=== PATIENT | male | born 1970 | race African-American/Black ===

== ENCOUNTER 2017-03-04 14:24 | Inpatient (IN) | payer MEDICAID, OTHER ==
[~2017-03-04] VITALS: Ht 172.7 cm; Wt 169.0 kg
[~2017-03-04 14:24] MED LIST: 3-IN3MIS; ACCUTES; BACL10TA PO; BLOO1KIT65; BUME1TAB PO; CARV6.25 PO; DOXY100T PO; ECASA PO; GABA300C3 PO; GABA600T PO; HOSPITAL BED SEMI; LANC1MIS TOPICAL; LEXA10TA PO; LISI20 PO; METF500 PO; PERI8.6T PO; PRAV40 PO; PROT40TA PO; THERM PO; WHEELCHAIR RENTAL RA; [UNRECOGNIZED DRUG - CODE] TOPICAL; [UNRECOGNIZED DRUG - SUPPLY]
[2017-03-04 14:42] VITALS: BP 175/110; PULSE 110; RESP 22; TEMP 99; O2SAT 99
--- NOTE | 2017-03-04 15:05 | RADRPT ---
EXAM DATE/TIME: 03/04/2017 14:54 [place] COMPARISON: No previous studies available for comparison. INDICATIONS : Shortness of breath. MEDICAL HISTORY : None. SURGICAL HISTORY : Pacemaker. ENCOUNTER: Initial ACUITY: 3 days PAIN SCORE: 0/10 LOCATION: Bilateral chest FINDINGS: There bilateral partially consolidative infiltrate in the mid and lower lungs and small subdural deli neation of portions the left hemidiaphragm. Cardiac pacer lead in place. The heart is mildly enlarg ed. CONCLUSION: Patchy partially consolidative infiltrates in both mid and lower lungs, left greater than right. Anil Sneed MD on March 04, 2017 at 15:02 Board Certified Radiologist. This report was verified electronically.
--- NOTE | 2017-03-04 15:07 | PD ---
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 Patient reports that he is currently being treated for a lung infection with levaquin 500mg. Reports that he is sob and has had a nonproductive cough for the past week. Patient reports that having his bed right next to the air-conditioner helps with his symptoms, reports that he moved his bed right next to the air conditioner but administration made him move his bed back to where it was normally. Patient reports that he is angry with administration as he requires his bed to be right near the AC to help with his breathing. Patient denies fever/chills. Denies chest pain. Reports SOB with his cough. Denies abdominal pain, nausea or vomiting. NO other c/o. PFSH Past Medical History Arthritis: No Asthma: No Autoimmune Disease: No Blood Disorders: No Anxiety: No Depression: No Heart Rhythm Problems: Yes Cancer: No Cardiovascular Problems: No High Cholesterol: Yes Chest Pain: No Congestive Heart Failure: Yes COPD: No Cerebrovascular Accident: Yes Diabetes: Yes Diminished Hearing: No Endocrine: Yes GERD: No Glaucoma: No Genitourinary: Yes Headaches: No Hepatitis: No Hiatal Hernia: No Hypertension: Yes Immune Disorder: No Kidney Stones: No Musculoskeletal: No Neurologic: Yes Psychiatric: No Reproductive: No Respiratory: No Migraines: No Myocardial Infarction: No Pneumonia: Yes Radiation Therapy: No Renal Failure: No Seizures: No Sickle Cell Disease: No Sleep Apnea: Yes Thyroid Disease: No Ulcer: No Tetanus Vaccination: < 5 Years Influenza Vaccination: Yes Past Surgical History Abdominal Surgery: Yes AICD: No Appendectomy: No Arteriovenous Shunt: No Cardiac Surgery: Yes Cholecystectomy: No Ear Surgery: No Endocrine Surgery: No Eye Surgery: No Genitourinary Surgery: No Gynecologic Surgery: No Insulin Pump: No Joint Replacement: No Oral Surgery: No Pacemaker: Yes Thoracic Surgery: Yes Social History Alcohol Use: No Tobacco Use: No Substance Use: No Allergies-Medications (Allergen,Severity, Reaction): Coded Allergies: No Known Allergies (Unverified , 03/04/17) Reported Meds & Prescriptions Reported Meds & Active Scripts Active Reported Duoneb (Ipratropium-Albuterol Neb) 0.5-2.5 Mg/3 Ml Neb 1 Nebule INH QID NEB PRN Tessalon Perles (Benzonatate) 100 Mg Cap 100 Mg PO TID PRN Milk of Magnesia Liq (Magnesium Hydroxide) 400 Mg/5 Ml Susp 30 Ml PO Q4HR PRN Sm Anti-Diarrheal (Loperamide HCl) 1 Mg/5 Ml Liq 2 Mg PO DIRECTED PRN Take 4 mg after 1st loose stool, then take 2 mg after each subsequent stool. Max 16 mg/day. Anti-Diarrheal (Loperamide HCl) 2 Mg Tab 2 Mg PO DIRECTED PRN Take 4 mg after 1st loose stool, then take 2 mg after each subsequent stool. Max 16 mg/day. Fleet Enema Six Pack 7-19 gm/118Ml (Sodium Phosphates) 1 Allyson Allyson 118 Ml IA DAILY PRN Dulcolax Supp (Bisacodyl) 10 Mg Supp 10 Mg RECTAL DAILY PRN Mapap (Acetaminophen) 325 Mg Tab 650 Mg PO Q4HR PRN Hcsbtocg-Zylbaecbu-Iqncfcvrlyu Liq 200-200-20 Mg/5 Ml Susp 30 Ml PO Q4HR PRN Take between meals or as directed. Shake well. Do not exceed 120 mL/24 hrs. Medrol Dosepak (Methylprednisolone) 4 Mg Dspk 4 Mg PO DIRECTED Per Pharmacist direction Warfarin 1 Mg Tab 1 Mg PO SUTUWETHSA @ 1600 Warfarin 2.5 Mg Tab 2.5 Mg PO SUTUWETHSA @ 1600 Warfarin 2 Mg Tab 2 Mg PO MOFR@1600 Coumadin (Warfarin) 5 Mg Tab 5 Mg PO MOFR @ 1600 Ativan (Lorazepam) 0.5 Mg Tab 0.5 Mg PO BID Pravastatin 40 Mg Tab 40 Mg PO HS Metformin (Metformin HCl) 500 Mg Tab 500 Mg PO BIDPC With meals Lisinopril 5 Mg Tab 5 Mg PO DAILY Gabapentin 300 Mg Cap 300 Mg PO TID Fluoxetine (Fluoxetine HCl) 20 Mg Capsule 20 Mg PO DAILY Lexapro (Escitalopram Oxalate) 10 Mg Tab 10 Mg PO DAILY Celebrex (Celecoxib) 200 Mg Cap 200 Mg PO DAILY Carvedilol 12.5 Mg Tab 12.5 Mg PO BID Buspirone (Buspirone HCl) 10 Mg Tab 10 Mg PO DAILY Bumetanide 1 Mg Tab 1 Mg PO DAILY Levaquin (Levofloxacin) 500 Mg Tablet 500 Mg PO DAILY Review of Systems General / Constitutional: No: Fever Eyes: No: Visual changes HENT: No: Headaches Cardiovascular: No: Chest Pain or Discomfort Respiratory: Positive: Cough, Shortness of Breath Gastrointestinal: No: Abdominal Pain Genitourinary: No: Dysuria Musculoskeletal: No: Pain Skin: No Rash Neurologic: No: Weakness Psychiatric: No: Depression Endocrine: No: Polydipsia Hematologic/Lymphatic: No: Easy Bruising Physical Exam Narrative GENERAL: Mild distress SKIN: Focused skin assessment warm/dry. HEAD: Atraumatic. Normocephalic. EYES: Pupils equal and round. No scleral icterus. No injection or drainage. ENT: No nasal bleeding or discharge. Mucous membranes pink and moist. NECK: Trachea midline. No JVD. CARDIOVASCULAR: Regular rate and rhythm. No murmur appreciated. RESPIRATORY: No accessory muscle use. Clear to auscultation. Breath sounds equal bilaterally. GASTROINTESTINAL: Abdomen soft, non-tender, nondistended. Hepatic and splenic margins not palpable. MUSCULOSKELETAL: No obvious deformities. No clubbing. No cyanosis. No edema. NEUROLOGICAL: Awake and alert.Normal speech. PSYCHIATRIC: Appropriate mood and affect; insight and judgment normal. Data Data Last Documented VS Vital Signs Date Time Temp Pulse Resp B/P Pulse Ox O2 Delivery O2 Flow Rate FiO2 03/04/17 15:38 105 22 145/104 97 Nasal Cannula 2 03/04/17 14:42 99.0 Orders Electrocardiogram (03/04/17 14:43) Complete Blood Count With Diff (03/04/17 14:43) Comprehensive Metabolic Panel (03/04/17 14:43) Urinalysis - C+S If Indicated (03/04/17 14:43) Blood Culture (03/04/17 14:43) Chest, Single Ap (03/04/17 14:43) B-Type Natriuretic Peptide (03/04/17 14:43) Act Partial Throm Time (Ptt) (03/04/17 14:43) Prothrombin Time / Inr (Pt) (03/04/17 14:43) Piperacil-Tazo 4.5 Gm Premix (Zosyn 4.5 (03/04/17 16:15) Azithromycin Inj (Zithromax Inj) (03/04/17 16:15) Labs Laboratory Tests Test 03/04/17 14:45 White Blood Count 11.7 TH/MM3 Red Blood Count 4.43 MIL/MM3 Hemoglobin 12.8 GM/DL Hematocrit 38.9 % Mean Corpuscular Volume 87.8 FL Mean Corpuscular Hemoglobin 28.9 PG Mean Corpuscular Hemoglobin 32.9 % Concent Red Cell Distribution Width 15.7 % Platelet Count 382 TH/MM3 Mean Platelet Volume 8.4 FL Neutrophils (%) (Auto) 73.7 % Lymphocytes (%) (Auto) 14.8 % Monocytes (%) (Auto) 10.2 % Eosinophils (%) (Auto) 0.6 % Basophils (%) (Auto) 0.7 % Neutrophils # (Auto) 8.6 TH/MM3 Lymphocytes # (Auto) 1.7 TH/MM3 Monocytes # (Auto) 1.2 TH/MM3 Eosinophils # (Auto) 0.1 TH/MM3 Basophils # (Auto) 0.1 TH/MM3 CBC Comment DIFF FINAL Differential Comment Prothrombin Time 32.5 SEC Prothromb Time International 2.8 RATIO Ratio Activated Partial 36.4 SEC Thromboplast Time Sodium Level 147 MEQ/L Potassium Level 4.3 MEQ/L Chloride Level 111 MEQ/L Carbon Dioxide Level 24.8 MEQ/L Anion Gap 11 MEQ/L Blood Urea Nitrogen 33 MG/DL Creatinine 1.16 MG/DL Estimat Glomerular Filtration 82 ML/MIN Rate Random Glucose 139 MG/DL Calcium Level 8.7 MG/DL Total Bilirubin 0.5 MG/DL Aspartate Amino Transf 32 U/L (AST/SGOT) Alanine Aminotransferase 40 U/L (ALT/SGPT) Alkaline Phosphatase 81 U/L B-Type Natriuretic Peptide 1429 PG/ML Total Protein 7.0 GM/DL Albumin 3.2 GM/DL [facility] Medical Decision Making Medical Screen Exam Complete: Yes Emergency Medical Condition: Yes Interpretation(s) EKG at 1443: Sinus tach at 109bpm, qt/qtc: 313/377, no acute changes Vital Signs Date Time Temp Pulse Resp B/P Pulse Ox O2 Delivery O2 Flow Rate FiO2 03/04/17 14:49 22 98 Nasal Cannula 2 03/04/17 14:42 99.0 110 22 175/110 99 Differential Diagnosis Pneumonia, electrolyte abnormality, viral syndrome, arrhythmia Narrative Course Patient is a 46 year old male who presents to ER with complaints of cough, shortness of breath, wheezing for the past week. Patient reports that he is currently on antibiotics for his lung infection, reports that his symptoms improve when he is laying in front of an air conditioner. Reports that administration at [facility] will not allow him to have his bed near the and patient is upset. Patient is tachycardic with increased respiratory rate at this time.. Lab work including blood cultures ordered, x-ray of the chest ordered as well. Patient was placed on a cardia monitor for further monitoring Vital Signs Date Time Temp Pulse Resp B/P Pulse Ox O2 Delivery O2 Flow Rate FiO2 03/04/17 15:38 105 22 145/104 97 Nasal Cannula 2 03/04/17 14:49 22 98 Nasal Cannula 2 03/04/17 14:42 99.0 110 22 175/110 99 Laboratory Tests Test 03/04/17 14:45 White Blood Count 11.7 TH/MM3 (4.0-11.0) Red Blood Count 4.43 MIL/MM3 (4.50-5.90) Hemoglobin 12.8 GM/DL (13.0-17.0) Hematocrit 38.9 % (39.0-51.0) Mean Corpuscular Volume 87.8 FL (80.0-100.0) Mean Corpuscular Hemoglobin 28.9 PG (27.0-34.0) Mean Corpuscular Hemoglobin 32.9 % Concent (32.0-36.0) Red Cell Distribution Width 15.7 % (11.6-17.2) Platelet Count 382 TH/MM3 (150-450) Mean Platelet Volume 8.4 FL (7.0-11.0) Neutrophils (%) (Auto) 73.7 % (16.0-70.0) Lymphocytes (%) (Auto) 14.8 % (9.0-44.0) Monocytes (%) (Auto) 10.2 % (0.0-8.0) Eosinophils (%) (Auto) 0.6 % (0.0-4.0) Basophils (%) (Auto) 0.7 % (0.0-2.0) Neutrophils # (Auto) 8.6 TH/MM3 (1.8-7.7) Lymphocytes # (Auto) 1.7 TH/MM3 (1.0-4.8) Monocytes # (Auto) 1.2 TH/MM3 (0-0.9) Eosinophils # (Auto) 0.1 TH/MM3 (0-0.4) Basophils # (Auto) 0.1 TH/MM3 (0-0.2) CBC Comment DIFF FINAL Differential Comment Prothrombin Time 32.5 SEC (9.8-11.6) Prothromb Time International 2.8 RATIO Ratio Activated Partial 36.4 SEC Thromboplast Time (24.3-30.1) Sodium Level 147 MEQ/L (136-145) Potassium Level 4.3 MEQ/L (3.5-5.1) Chloride Level 111 MEQ/L (98-107) Carbon Dioxide Level 24.8 MEQ/L (21.0-32.0) Anion Gap 11 MEQ/L (5-15) Blood Urea Nitrogen 33 MG/DL (7-18) Creatinine 1.16 MG/DL (0.60-1.30) Estimat Glomerular Filtration 82 ML/MIN (>89) Rate Random Glucose 139 MG/DL (74-106) Calcium Level 8.7 MG/DL (8.5-10.1) Total Bilirubin 0.5 MG/DL (0.2-1.0) Aspartate Amino Transf 32 U/L (15-37) (AST/SGOT) Alanine Aminotransferase 40 U/L (12-78) (ALT/SGPT) Alkaline Phosphatase 81 U/L (45-117) B-Type Natriuretic Peptide 1429 PG/ML (0-100) Total Protein 7.0 GM/DL (6.4-8.2) Albumin 3.2 GM/DL (3.4-5.0) Last Impressions Chest X-Ray 03/04/17 1443 Signed Impressions: Service Date/Time: Saturday, March 04, 2017 14:54 - CONCLUSION: Patchy partially consolidative infiltrates in both mid and lower lungs, left greater than right. Anil Sneed MD Patient with multilobar pneumonia on chest xray - he has been on levaquin - plan to admit for failed outpatient treatment for pneumonia case reviewed with Dr. Meek who accepts pt to service under Dr. Joseph Sepsis Criteria Criteria Outcome: Meets sepsis criteria Diagnosis Primary Impression: Pneumonia Qualified Code: J18.9 - Pneumonia of both lungs due to infectious organism, unspecified part of lung Additional Impression: Sepsis Admitting Information Admitting Physician Requests: Admit Christa Brown DO Mar 04, 2017 15:07
[2017-03-04 15:36] LABS: AUTOMATED NEUTROPHIL # 8.6 TH/MM3 (1.8-7.7); BASOPHIL # 0.1 TH/MM3 (0-0.2); BASOPHIL % 0.7 % (0.0-2.0); EOSINOPHIL # 0.1 TH/MM3 (0-0.4); EOSINOPHIL % 0.6 % (0.0-4.0); HEMATOCRIT 38.9 % (39.0-51.0); HEMO FLAGS DIFF FINAL; LYMPH % 14.8 % (9.0-44.0); LYMPHOCYTE # 1.7 TH/MM3 (1.0-4.8); MEAN CELL VOLUME 87.8 FL (80.0-100.0); MEAN CORPUSCULAR HEMOGLOBIN 28.9 PG (27.0-34.0); MEAN CORPUSCULAR HGB CONC 32.9 % (32.0-36.0); MONO % 10.2 % (0.0-8.0); NEUT % 73.7 % (16.0-70.0); PLATELET COUNT 382 TH/MM3 (150-450); RED BLOOD COUNT 4.43 MIL/MM3 (4.50-5.90); RED CELL DISTRIBUTION WIDTH 15.7 % (11.6-17.2); WHITE BLOOD COUNT 11.7 TH/MM3 (4.0-11.0)
[2017-03-04 15:38] VITALS: BP 145/104; PULSE 105; RESP 22; O2SAT 97
[2017-03-04 15:49] LABS: APTT (PATIENT) 36.4 SEC (24.3-30.1); INTERNATIONAL NORMALIZED RATIO 2.8 RATIO; PROTHROMBIN TIME - PATIENT 32.5 SEC (9.8-11.6)
[2017-03-04] MEDS ORDERED: LEVA500T20 PO (15:56)
[2017-03-04] MEDS ORDERED: BUME1TAB PO (15:57)
[2017-03-04 16:02] LABS: ALKALINE PHOSPHATASE 81 U/L (45-117); TOTAL BILIRUBIN ADULT 0.5 MG/DL (0.2-1.0)
[2017-03-04 16:07] LABS: ALT (GPT) 40 U/L (12-78); ANION GAP 11 MEQ/L (5-15); AST (GOT) 32 U/L (15-37); BICARBONATE 24.8 MEQ/L (21.0-32.0); BLOOD UREA NITROGEN 33 MG/DL (7-18); CHLORIDE 111 MEQ/L (98-107); GLOMERULAR FILTRATION RATE 82 ML/MIN (>89); SODIUM (NA) 147 MEQ/L (136-145)
[2017-03-04] MEDS ORDERED: CARV12.52 PO (16:08)
[2017-03-04] MEDS ORDERED: BUSP10TA PO (16:08)
[2017-03-04] MEDS ORDERED: CELE200C PO (16:08)
[2017-03-04] MEDS ORDERED: PRAV40TA2 PO (16:09)
[2017-03-04] MEDS ORDERED: METF500T PO (16:09)
[2017-03-04] MEDS ORDERED: LEXA10TA PO (16:09)
[2017-03-04] MEDS ORDERED: COUM5TAB PO (16:09)
[2017-03-04] MEDS ORDERED: FLUO20CA12 PO (16:09)
[2017-03-04] MEDS ORDERED: LISI-519 PO (16:09)
[2017-03-04] MEDS ORDERED: GABA300C5 PO (16:09)
[2017-03-04] MEDS ORDERED: LORA-392 PO (16:09)
[2017-03-04] MEDS ORDERED: WARF4TAB51 PO (16:10)
[2017-03-04 16:15] LABS: POTASSIUM 4.3 MEQ/L (3.5-5.1)
[2017-03-04] MEDS ORDERED: WARF-18 PO (16:15)
[2017-03-04] MEDS ORDERED: PIPERACIL-TAZO 4.5 GM PREMIX 100 ML IV ONE (16:15)
[2017-03-04] MEDS ORDERED: AZITHROMYCIN INJ 500 MG in SODIUM CHLOR 0.9% 250 ML INJ 250 ML IV ONE (16:15)
[2017-03-04] MEDS ORDERED: WARF4TAB52 PO (16:17)
[2017-03-04] MEDS ORDERED: MEDR4PAK PO (16:24)
[2017-03-04] MEDS ORDERED: FLEEENE PR (16:30)
[2017-03-04] MEDS ORDERED: MAPA325T PO (16:30)
[2017-03-04] MEDS ORDERED: ANTI2TAB PO (16:30)
[2017-03-04] MEDS ORDERED: DULC10SU3 RECTAL (16:30)
[2017-03-04] MEDS ORDERED: ALUMSUS2 PO (16:30)
[2017-03-04] MEDS ORDERED: SM A PO (16:32)
[2017-03-04] MEDS ORDERED: BENZ100 PO (16:37)
[2017-03-04] MEDS ORDERED: MILKSUS PO (16:37)
[2017-03-04] MEDS ORDERED: IPRASOL INH (16:37)
[2017-03-04 17:15] VITALS: BP 144/99; PULSE 98; RESP 20; O2SAT 96
[2017-03-04] MEDS ORDERED: SODIUM CHLORIDE 0.9% FLUSH 10 ML FLUSH IV FLUSH PRN (17:30)
[2017-03-04] MEDS ORDERED: Vancomycin Consult Pharmacy 1 EA OTHER SCH (17:30)
[2017-03-04] MEDS ORDERED: ACETAMINOPHEN 325 MG TAB PO PRN (17:45)
[2017-03-04] MEDS ORDERED: LOPERAMIDE HCL SOLN 2 MG/10 ML UDC PO PRN (17:45)
[2017-03-04] MEDS ORDERED: MAGNESIUM HYDROXIDE SUSP 30 ML CUP PO PRN (17:45)
[2017-03-04] MEDS ORDERED: BENZONATATE 100 MG CAP PO PRN (17:45)
[2017-03-04] MEDS ORDERED: LOPERAMIDE HCL 2 MG CAP PO PRN (17:45)
[2017-03-04] MEDS ORDERED: ALUMINUM/MAGNESIUM/SIMETH 30 ML CUP PO PRN (17:45)
[2017-03-04] MEDS ORDERED: DEXTROSE 50% IN WATER 50 ML VIAL(D50) IV PRN (17:45)
[2017-03-04] MEDS ORDERED: BISACODYL 10 MG SUPP RECTAL PRN (17:45)
[2017-03-04] MEDS ORDERED: GLUCAGON 1 MG/ML VIAL OTHER PRN (17:45)
[2017-03-04 18:03] VITALS: BP 142/98
[2017-03-04] MEDS ORDERED: RESP: ALBUTEROL 2.5 MG/IPRATROPIUM 0.5 MG NEB (PRN) NEB (18:45)
--- NOTE | 2017-03-04 19:21 | HHI.HP ---
[facility] Darrell Cain M.D. Admission Diagnosis Sepsis, Multilobar pneumonia Diagnoses: Chief Complaint: SOB, COUGH Travel History International Travel<30 Days: No Contact w/Intl Traveler <30 Da: No Traveled to Known Affected Are: No History of Present Illness This is an unfortunate 44-year-old male who has a history of right MCA stroke with left-sided hemiplegia, cardiomyopathy has AICD, non-STEMI, hypertension, hyperlipidemia, CHF, insulin-dependent diabetes. [facility] having [facility]. Patient presented to the emergency room for evaluation of cough and shortness of breath. Patient actually call 911 to be brought to the hospital. He was initially angry because for the last couple nights he have requested his bed close to the AC unit so than he breath better. Apparently the administration at the facility made put the bed back to where it normally is and he became very angry and called 911. Patient endorses that for the last 2 weeks he's had a respiratory infection with a dry cough, he's unable to bring up any secretions. He's had some nasal congestion. He's noted increased shortness of breath, no chest pain. He is not on oxygen. but was given nebulizer treatments. Review from [facility]iary records shows that the patient was started on Bumex 1 mg orally daily and Levaquin 500 mg orally on February 27. Patient denies any fever, no chills. Denies any abdominal discomfort, no diarrhea. Appetite has been poor, he hasn't been eating very well. Patient was evaluated in the emergency room, he was noted with a temperature of 99, pulse rate 105, respiratory rate 22, blood pressure 145/104, sats 97% on 2 L. CBC was significant for WBC of 11.7. BMP remarkable for hypernatremia, sodium 147. Random glucose 139. BNP 1429. Chest x-ray significant for patchy partially consolidated infiltrates in both mid and lower lobes left greater than right. Cultures were obtained, patient was started on empiric antibiotics. Review of Systems ROS Limitations: Clinical Condition Constitutional: COMPLAINS OF: Change in appetite Ears, nose, mouth, throat: COMPLAINS OF: Nasal discharge Respiratory: COMPLAINS OF: Cough, Shortness of breath Neurologic: COMPLAINS OF: Localized weakness, Speech Problems, Poor Balance Past Family Social History Past Medical History Diabetes Hypertension Cardiomyopathy Right MCA stroke Hyperlipidemia Peripheral neuropathy Obesity Previous UTI Urinary retention Coccyx pressure ulcer that healed Past Surgical History AICD placement PEG placement Reported Medications Reported Meds & Active Scripts Active Reported Duoneb (Ipratropium-Albuterol Neb) 0.5-2.5 Mg/3 Ml Neb 1 Nebule INH QID NEB PRN Tessalon Perles (Benzonatate) 100 Mg Cap 100 Mg PO TID PRN Milk of Magnesia Liq (Magnesium Hydroxide) 400 Mg/5 Ml Susp 30 Ml PO Q4HR PRN Sm Anti-Diarrheal (Loperamide HCl) 1 Mg/5 Ml Liq 2 Mg PO DIRECTED PRN Take 4 mg after 1st loose stool, then take 2 mg after each subsequent stool. Max 16 mg/day. Anti-Diarrheal (Loperamide HCl) 2 Mg Tab 2 Mg PO DIRECTED PRN Take 4 mg after 1st loose stool, then take 2 mg after each subsequent stool. Max 16 mg/day. Fleet Enema Six Pack 7-19 gm/118Ml (Sodium Phosphates) 1 Allyson Allyson 118 Ml MI DAILY PRN Dulcolax Supp (Bisacodyl) 10 Mg Supp 10 Mg RECTAL DAILY PRN Mapap (Acetaminophen) 325 Mg Tab 650 Mg PO Q4HR PRN Aowbfzlc-Stcaaucvd-Winosnqgfmd Liq 200-200-20 Mg/5 Ml Susp 30 Ml PO Q4HR PRN Take between meals or as directed. Shake well. Do not exceed 120 mL/24 hrs. Medrol Dosepak (Methylprednisolone) 4 Mg Dspk 4 Mg PO DIRECTED Per Pharmacist direction Warfarin 1 Mg Tab 1 Mg PO SUTUWETHSA @ 1600 Warfarin 2.5 Mg Tab 2.5 Mg PO SUTUWETHSA @ 1600 Warfarin 2 Mg Tab 2 Mg PO MOFR@1600 Coumadin (Warfarin) 5 Mg Tab 5 Mg PO MOFR @ 1600 Ativan (Lorazepam) 0.5 Mg Tab 0.5 Mg PO BID Pravastatin 40 Mg Tab 40 Mg PO HS Metformin (Metformin HCl) 500 Mg Tab 500 Mg PO BIDPC With meals Lisinopril 5 Mg Tab 5 Mg PO DAILY Gabapentin 300 Mg Cap 300 Mg PO TID Fluoxetine (Fluoxetine HCl) 20 Mg Capsule 20 Mg PO DAILY Lexapro (Escitalopram Oxalate) 10 Mg Tab 10 Mg PO DAILY Celebrex (Celecoxib) 200 Mg Cap 200 Mg PO DAILY Carvedilol 12.5 Mg Tab 12.5 Mg PO BID Buspirone (Buspirone HCl) 10 Mg Tab 10 Mg PO DAILY Bumetanide 1 Mg Tab 1 Mg PO DAILY Levaquin (Levofloxacin) 500 Mg Tablet 500 Mg PO DAILY Allergies: Coded Allergies: No Known Allergies (Unverified , 03/04/17) Active Ordered Medications Inpatient Medications Acetaminophen (Tylenol) 650 mg Q4H PRN PO PAIN 1-10/DISCOMFORT/TEMP>101; Start 03/04/17 at 17:45 Al Hydrox/Mg Hydrox/Simethicone (Mag-Al Plus Susp Liq) 30 ml Q4H PRN PO INDIGESTION; Start 03/04/17 at 17:45 Albuterol/ Ipratropium (Duoneb Neb) 1 ampule QID NEB NEB ; Start 03/04/17 at 20: 00; Status UNV Azithromycin 500 mg/Sodium Chloride 250 ml @ 250 mls/hr Q24H IV ; Start at 16:00 Benzonatate (Tessalon) 100 mg TID PRN PO COUGH; Start 03/04/17 at 17:45 Bisacodyl (Dulcolax Supp) 10 mg DAILY PRN RECTAL IF NO BM FROM MOM; Start at 17:45 Bumetanide (Bumetanide) 1 mg DAILY PO ; Start 03/05/17 at 09:00; Status UNV Buspirone HCl (Buspar) 10 mg DAILY PO ; Start 03/05/17 at 09:00 Carvedilol (Coreg) 12.5 mg BID PO ; Start 03/04/17 at 21:00 Cefepime HCl 2000 mg/Sodium Chloride 100 ml @ 200 mls/hr Q8H IV ; Start at 20:00 Celecoxib (CeleBREX) 200 mg DAILY PO ; Start 03/05/17 at 09:00 Dextrose (D50w (Vial) Inj) 50 ml UNSCH PRN IV HYPOGLYCEMIA-SEE COMMENTS; Start 03/04/17 at 17:45 Escitalopram Oxalate (Lexapro) 10 mg DAILY PO ; Start 03/05/17 at 09:00 Fluoxetine HCl (PROzac) 20 mg DAILY PO ; Start 03/05/17 at 09:00; Stop 03/05/17 at 09:00; Status DC Gabapentin (Neurontin) 300 mg TID PO ; Start 03/04/17 at 18:00 Glucagon (Glucagon Inj) 1 mg UNSCH PRN OTHER HYPOGLYCEMIA-SEE COMMENTS; Start 03/04/17 at 17:45 Insulin Human Regular 1 1 ACHS SLIDING SCALE SQ ; Start 03/04/17 at 21:00 Lisinopril (Prinivil) 5 mg DAILY PO ; Start 03/05/17 at 09:00; Status UNV Loperamide HCl (Imodium Liq) 2 mg BID PRN PO DIARRHEA; Start 03/04/17 at 17:45; Stop 03/04/17 at 18:46; Status DC Loperamide HCl (Imodium) 2 mg BID PRN PO DIARRHEA; Start 03/04/17 at 17:45 Lorazepam (Ativan) 0.5 mg BID PO ; Start 03/04/17 at 21:00 Magnesium Hydroxide (Milk Of Magnesia Liq) 30 ml Q4H PRN PO CONSTIPATION; Start 03/04/17 at 17:45 Miscellaneous Information SPECIFIC LAB TO BE PINO... ONCE ONCE .XX ; Start at 08:45; Stop 03/06/17 at 08:46 Patient Medication Teaching 1 1 ONCE ONCE .XX ; Start 03/04/17 at 20:00; Stop at 20:01 Pharmacy Profile Note (Coumadin Consult Pharmacy) 0 ml @ 0 mls/hr UNSCH OTHER ; Start 03/04/17 at 17:45 Pharmacy Profile Note (Vancomycin Consult Pharmacy) 0 ml @ 0 mls/hr UNSCH OTHER ; Start 03/04/17 at 17:30 Piperacillin Sod/ Tazobactam Sod 100 ml @ 200 mls/hr ONCE ONCE IV Last administered on 03/04/17t 16:31; Start 03/04/17 at 16:15; Stop 03/04/17 at 16:44; Status DC Pravastatin Sodium (Pravachol) 40 mg HS PO ; Start 03/04/17 at 21:00 Prednisone (Deltasone) 20 mg BID PO ; Start 03/04/17 at 21:00; Status UNV Sodium Chloride (NS 1000 ml Inj) 1,000 ml @ 30 mls/hr Q24H IV ; Start 03/04/17 at 18:00 Sodium Chloride (NS Flush) 2 ml UNSCH PRN IV FLUSH FLUSH AFTER USING IV ACCESS ; Start 03/04/17 at 17:30 Sodium Chloride 2 ml 2 ml BID IV FLUSH ; Start 03/04/17 at 21:00 Vancomycin HCl/ Sodium Chloride (Vancomycin Inj/ NS 500 ml Inj) 517.5 ml @ 250 mls/hr Q12H IV ; Start 03/05/17 at 09:00 Warfarin Sodium (Coumadin) 5 mg DAILY@16 PO ; Start 03/05/17 at 16:00 Family History + CAD, DM Social History , no children. Has close family. No ETOH, no substance abuse, no smoking Bedbound, unable to transfer self. Physical Exam Vital Signs Vital Signs Date Time Temp Pulse Resp B/P Pulse Ox O2 Delivery O2 Flow Rate FiO2 03/04/17 18:03 96 22 142/98 98 Nasal Cannula 2 03/04/17 17:15 98 20 144/99 96 Nasal Cannula 2 03/04/17 15:38 105 22 145/104 97 Nasal Cannula 2 03/04/17 14:49 22 98 Nasal Cannula 2 03/04/17 14:42 99.0 110 22 175/110 99 Physical Exam GENERAL: This is a morbidly obese black male. Slightly tachypneic. SKIN: No rashes, ecchymoses or lesions. Cool and dry. HEAD: Atraumatic. Normocephalic. No temporal or scalp tenderness. EYES: Pupils equal round and reactive. Extraocular motions intact. No scleral icterus. No injection or drainage. ENT: Nose without bleeding, purulent drainage or septal hematoma. Throat without erythema, tonsillar hypertrophy or exudate. Uvula midline. Airway patent. NECK: Trachea midline. No JVD or lymphadenopathy. Supple, nontender, no meningeal signs. CARDIOVASCULAR: Regular rate and rhythm without murmurs, gallops, or rubs. RESPIRATORY:Bibasilar rales and expiratory wheezes throughout. GASTROINTESTINAL: Abdomen soft, non-tender, nondistended. No hepato-splenomegaly , or palpable masses. No guarding. MUSCULOSKELETAL: Left foot atrophy noted. Contracture to the left wrist. No other joint abnormality. Left lower extremity with pitting edema 2+, pedal pulses 2+. Right leg with trace pretibial edema, pedal pulses +2. NEUROLOGICAL: Awake, alert oriented 3. Speech is slow, slightly dysarthric. Chronic facial droop. Left-sided hemiplegia. Laboratory Laboratory Tests Test 03/04/17 14:45 White Blood Count 11.7 Red Blood Count 4.43 Hemoglobin 12.8 Hematocrit 38.9 Mean Corpuscular Volume 87.8 Mean Corpuscular Hemoglobin 28.9 Mean Corpuscular Hemoglobin 32.9 Concent Red Cell Distribution Width 15.7 Platelet Count 382 Mean Platelet Volume 8.4 Neutrophils (%) (Auto) 73.7 Lymphocytes (%) (Auto) 14.8 Monocytes (%) (Auto) 10.2 Eosinophils (%) (Auto) 0.6 Basophils (%) (Auto) 0.7 Neutrophils # (Auto) 8.6 Lymphocytes # (Auto) 1.7 Monocytes # (Auto) 1.2 Eosinophils # (Auto) 0.1 Basophils # (Auto) 0.1 CBC Comment DIFF FINAL Differential Comment Prothrombin Time 32.5 Prothromb Time International 2.8 Ratio Activated Partial 36.4 Thromboplast Time Sodium Level 147 Potassium Level 4.3 Chloride Level 111 Carbon Dioxide Level 24.8 Anion Gap 11 Blood Urea Nitrogen 33 Creatinine 1.16 Estimat Glomerular Filtration 82 Rate Random Glucose 139 Calcium Level 8.7 Total Bilirubin 0.5 Aspartate Amino Transf 32 (AST/SGOT) Alanine Aminotransferase 40 (ALT/SGPT) Alkaline Phosphatase 81 B-Type Natriuretic Peptide 1429 Total Protein 7.0 Albumin 3.2 Date/Time Procedure Status Source Growth 03/04/17 15:00 Aerobic Blood Culture Received Blood Peripheral Pending 03/04/17 15:00 Anaerobic Blood Culture Received Blood Peripheral Pending Result Diagram: 03/04/17 1445 03/04/17 1445 Imaging Last Impressions Chest X-Ray 03/04/17 1443 Signed Impressions: Service Date/Time: Saturday, March 04, 2017 14:54 - CONCLUSION: Patchy partially consolidative infiltrates in both mid and lower lungs, left greater than right. Anli Sneed MD Assessment and Plan Problem List: (1) CHF (congestive heart failure) (2) Pneumonia (3) Cardiomyopathy (4) Hypertension (5) Insulin dependent diabetes mellitus (6) DM type 2 (diabetes mellitus, type 2) (7) Neuropathic pain (8) History of CVA with residual deficit Assessment and Plan Admit to Dr. Joseph 46-year-old black male with history of right MCA stroke and left-sided hemiplegia, cardiomyopathy, type 2 diabetes. Presented to the emergency room with complaining of shortness of breath and wheezing. Has been treated for upper respiratory infection with Levaquin. Also suspected CHF as he was started on Bumex. Pneumonia, failed outpatient therapy. Patient noted with diffuse wheezing, shortness breath. Continue with empiric antibiotics Follow cultures DuoNeb's 4 times a day We'll start prednisone 20 mg by mouth twice a day Tessalon 100 mg by mouth 3 times a day when necessary -Continue with supplemental oxygen CHF exacerbation, B natruretic peptide 1429. History of cardiomyopathy, last echo in 2019 showed EF of 20%. Has AICD -We'll give Bumex 1 mg IV 1 today and resume Bumex 1 mg by mouth daily tomorrow -Monitor intake and output Cardiac telemetry Serial cardiac enzymes 2-D echo will be ordered -Continue with Coreg and lisinopril Insulin-dependent diabetes Accu-Cheks before meals and at bedtime with insulin therapy as needed Right MCA stroke with left-sided hemiplegia Continue with warfarin and follow INR. INR 2.8 Hypernatremia -repeat BMP in am Peripheral neuropathy, Continue with gabapentin 300 mg by mouth 3 times a day Lipidemia Continue Pravachol Continue with Coumadin for DVT prophylaxis Home medications have been reviewed, initiated as indicated Plan of care has been discussed with the patient, attending and registered nurse. Further management of the patient will be dependent on the hospital course This patient was seen by myself and Dr. Joseph, this H&P is written on her behalf Physician Certification 2 Midnight Certification Type: Admission for Inpatient Services Order for Inpatient Services The services are ordered in accordance with Medicare regulations or non- Medicare payer requirements, as applicable. In the case of services not specified as inpatient-only, they are appropriately provided as inpatient services in accordance with the 2-midnight benchmark. Estimated LOS (days): 2 2 days is the estimated time the patient will need to remain in the hospital, assuming treatment plan goals are met and no additional complications. Post-Hospital Plan: SNF Problem Qualifiers (1) CHF (congestive heart failure): Qualified Code: I50.23 - Acute on chronic systolic congestive heart failure (2) Pneumonia: Qualified Code: J18.9 - Pneumonia of both lungs due to infectious organism, unspecified part of lung (3) Cardiomyopathy: Qualified Code: I42.9 - Cardiomyopathy, unspecified type (4) Hypertension: Qualified Code: I10 - Essential hypertension (5) DM type 2 (diabetes mellitus, type 2): Qualified Code: E11.59 - Type 2 diabetes mellitus with other circulatory complication, unspecified long term acute care registered nurse insulin use status Tata Villalobos Mar 04, 2017 19:21
[2017-03-04 20:00] VITALS: BP 116/82; PULSE 89; RESP 21; TEMP 97.9; O2SAT 95
[2017-03-04] MEDS ORDERED: VANCOMYCIN INJ 2,500 MG in SODIUM CHLORID 0.9% 500 ML INJ 500 ML IV ONE (20:00)
[2017-03-04] MEDS: RESP: ALBUTEROL 2.5 MG/IPRATROPIUM 0.5 MG NEB (SCH) NEB (20:43)
[2017-03-04 20:47] VITALS: O2SAT 93
[2017-03-04] MEDS: PRAVASTATIN SOD 40 MG TAB PO SCH (21:00)
[2017-03-04] MEDS: INSULIN NovoLIN REGULAR SUPPLEMENTAL SCALE SQ SCH (21:00)
[2017-03-04] MEDS: SODIUM CHLORIDE 0.9% FLUSH 10 ML FLUSH IV FLUSH SCH (21:35)
[2017-03-04] MEDS: CARVEDILOL 12.5 MG TAB PO SCH (21:36)
[2017-03-04] MEDS: LORazepam 0.5 MG TAB PO SCH (21:36)
[2017-03-04] MEDS: predniSONE 20 MG TAB PO SCH (21:36)
[2017-03-04] MEDS: SODIUM CHLOR 0.9% 1000 ML INJ 1,000 ML IV SCH (21:47)
[2017-03-04] MEDS: CEFEPIME INJ 2,000 MG in SODIUM CHLORIDE 0.9% INJ 100 ML IV SCH (21:49)
[2017-03-05] VITALS (9 sets, daily range): BP systolic 103–147; BP diastolic 77–98; PULSE 86–108; RESP 18–24; TEMP 95.3–97.6; O2SAT 93–99
[2017-03-05 02:47] LABS: HEMATOCRIT 38.9 % (39.0-51.0); MEAN CELL VOLUME 89.6 FL (80.0-100.0); MEAN CORPUSCULAR HEMOGLOBIN 28.3 PG (27.0-34.0); MEAN CORPUSCULAR HGB CONC 31.6 % (32.0-36.0); PLATELET COUNT 325 TH/MM3 (150-450); RED BLOOD COUNT 4.34 MIL/MM3 (4.50-5.90); RED CELL DISTRIBUTION WIDTH 15.8 % (11.6-17.2); REVIEW FLAG FINAL; WHITE BLOOD COUNT 10.5 TH/MM3 (4.0-11.0)
[2017-03-05 02:58] LABS: INTERNATIONAL NORMALIZED RATIO 3.1 RATIO; PROTHROMBIN TIME - PATIENT 36.5 SEC (9.8-11.6)
[2017-03-05] MEDS: CEFEPIME INJ 2,000 MG in SODIUM CHLORIDE 0.9% INJ 100 ML IV SCH ×3 (06:08→20:56)
[2017-03-05] MEDS: INSULIN NovoLIN REGULAR SUPPLEMENTAL SCALE SQ SCH ×4 (06:09→21:00)
[2017-03-05] MEDS: RESP: ALBUTEROL 2.5 MG/IPRATROPIUM 0.5 MG NEB (SCH) NEB ×4 (08:46→19:54)
[2017-03-05] MEDS: CELECOXIB 200 MG CAP PO SCH (09:00)
[2017-03-05] MEDS: VANCOMYCIN INJ 1,750 MG in SODIUM CHLORID 0.9% 500 ML INJ 500 ML IV SCH ×2 (09:00→21:00)
[2017-03-05] MEDS: LORazepam 0.5 MG TAB PO SCH ×2 (09:00→20:59)
[2017-03-05] MEDS: busPIRone HCL 10 MG TAB PO SCH (09:00)
[2017-03-05] MEDS: LISINOPRIL 5 MG TAB PO SCH (09:00)
[2017-03-05] MEDS: SODIUM CHLORIDE 0.9% FLUSH 10 ML FLUSH IV FLUSH SCH ×2 (09:00→20:58)
[2017-03-05] MEDS ORDERED: FLUoxetine HCL 20 MG CAP PO SCH (09:00)
[2017-03-05] MEDS: ESCITALOPRAM OXALATE 10 MG TAB PO SCH (09:00)
[2017-03-05] MEDS: GABAPENTIN 300 MG CAP PO SCH ×3 (09:00→17:29)
[2017-03-05] MEDS: predniSONE 20 MG TAB PO SCH ×2 (09:00→20:59)
[2017-03-05] MEDS: CARVEDILOL 12.5 MG TAB PO SCH ×2 (09:00→20:59)
[2017-03-05] MEDS ORDERED: BUMETANIDE 1 MG TAB PO SCH (09:00)
--- NOTE | 2017-03-05 14:10 | HHI.PR ---
Subjective Remarks Resting in bed Requesting to get out of bed so he can do his exercises in the Ies[facility] chair Generalized weakness morbid obesity Shortness of breath and low volumes at rest Afebrile Appetite fair (Maria Dolores Morales) Objective Objective Results - Vital Signs Date Time Temp Pulse Resp B/P Pulse Ox O2 Delivery O2 Flow Rate FiO2 03/05/17 08:46 93 Nasal Cannula 3.00 03/05/17 08:00 97.2 100 20 139/97 99 03/05/17 04:00 96.8 96 18 120/79 95 03/05/17 00:00 96.5 86 18 103/77 96 03/04/17 20:47 93 Nasal Cannula 3.00 03/04/17 20:00 97.9 89 21 116/82 95 03/04/17 18:03 96 22 142/98 98 Nasal Cannula 2 03/04/17 17:15 98 20 144/99 96 Nasal Cannula 2 03/04/17 15:38 105 22 145/104 97 Nasal Cannula 2 03/04/17 14:49 22 98 Nasal Cannula 2 03/04/17 14:42 99.0 110 22 175/110 99 I/O 03/04/17 03/04/17 03/04/17 03/05/17 03/05/17 03/05/17 06:59 14:59 22:59 06:59 14:59 22:59 Intake Total 323 ml 742 ml Output Total 300 ml 500 ml Balance 23 ml 242 ml Intake Oral 280 ml 0 ml IV Total 43 ml 742 ml Output Urine Total 300 ml 500 ml # Bowel Movements 1 (Maria Dolores Morales) Result Diagram: 03/05/17 0159 03/04/17 1445 ROS General: Fatigue, Weakness, Other (10 point ROS done positives noted) Cardiac: Edema (trace to 1+ lower extremity) Pulmonary: Cough, SOB Skin: Other (morbidly obese, previous CVA) (Maria Dolores Morales) Physical Exam Physical Exam PHYSICAL EXAMINATION GENERAL: This is a morbidly obese male Resting in the bed He is alert and awake, speech is slow but understandable HEAD: Normocephalic, atraumatic OROPHARYNGEAL: Oropharynx clear NECK: Supple. Obese Trachea midline without deviation. CARDIAC: Regular rhythm, regular rate, S1 and S2 are heard. Heart sounds distant, 1+ lower extremity edema LUNGS: Low volumes and diminished breath sounds to auscultation bilaterally. no wheeze, ABDOMEN: Soft, obese, nontender, bowel sounds present EXTREMITIES: Lower extremity edema. Strength is warm NEUROLOGICAL: Speech is slow, but understandable. Tongue is midline SKIN:Warm, dry, skin intact Objective Remarks To get out of the chair. We'll help him feel better (Maria Dolores Morales) A/P Assessment and Plan (1) CHF (congestive heart failure) (2) Pneumonia (3) Cardiomyopathy (4) Hypertension (5) Insulin dependent diabetes mellitus (6) DM type 2 (diabetes mellitus, type 2) (7) Neuropathic pain (8) History of CVA with residual deficit Vital signs reviewed, currently patient is afebrile Labs reviewed leukocytosis improved with current regimen, IV antibiotics Pneumonia, failed outpatient therapy. Continues with shortness of breath and low volumes Continue antibiotics, oxygen and DuoNeb's Blood cultures are pending, still negative Continue by mouth steroids, and cough meds PT to eval and treat and get up in chair. Needs strengthening and active ROS. Increase activity out of bed which may assist with his breathing, CHF exacerbation, B natruretic peptide 1429. History of cardiomyopathy, last echo in 2019 showed EF of 20%. Has AICD Still has some lower extremity edema continue by mouth diuretics and monitor intake and output 2-D echo, medical management, keep Bumex at IV dose due to his low volumes and shortness of breath Add Cardiology consult for expert opinion, CHF, increased shortness of breath today Insulin-dependent diabetes Accu-Cheks before meals and at bedtime with insulin therapy as needed Right MCA stroke with left-sided hemiplegia Continue with Coumadin and medical management , pharmacy assist for INR management Peripheral neuropathy, medical management Dyslipidemia, medical management Continue with Coumadin for DVT prophylaxis (Maria Dolores Morales) Assessment and Plan patient seen and examined agree with above assessment and plan possible pneumonia a/c CHF, EF unknown agree with increasing Bumex follow pro BNP continue broad spectrum antibiotics may need u/c guided thoracentesis discussed with patient, nursing staff and Tata GASPAR (Qiana Joseph MD) Maria Dolores Morales Mar 05, 2017 14:10 Qiana Josehp MD Mar 05, 2017 15:30
[2017-03-05] MEDS ORDERED: AZITHROMYCIN INJ 500 MG in SODIUM CHLOR 0.9% 250 ML INJ 250 ML IV SCH (16:00)
[2017-03-05] MEDS ORDERED: WARFARIN SOD 5 MG TAB PO SCH (16:00)
--- NOTE | 2017-03-05 16:24 | EKG ---
Date Performed: 03/05/2017 Time Performed: 01:50:02 PTAGE: 46 years EKG: Sinus rhythm Possible anterior infarct - age undetermined Inferior/lateral T wave changes are nonspecific Low QRS voltages in precordial leads Abnormal ECG Compared to the PREVIOUS TRACING from 03/04/17, no significant change DOCTOR: Israel Cottrell Interpretating Date/Time 03/05/2017 16:22:05
[2017-03-05] MEDS ORDERED: BUMETANIDE INJ 1 MG/4 ML VIAL IV PUSH SCH (18:00)
[2017-03-05] MEDS: SODIUM CHLOR 0.9% 1000 ML INJ 1,000 ML IV SCH (18:00)
--- NOTE | 2017-03-05 18:18 | EKG ---
Date Performed: 03/04/2017 Time Performed: 20:32:45 PTAGE: 46 years EKG: Sinus rhythm NONSPECIFIC T-WAVE ABNORMALITY BORDERLINE ECG PREVIOUS TRACING : 03/04/2017 14.43 Compared to prior tracing no significant change DOCTOR: Israel Cottrell Interpretating Date/Time 03/05/2017 18:17:58
[2017-03-05 18:48] LABS: BICARBONATE 22.4 MEQ/L (21.0-32.0)
--- NOTE | 2017-03-05 18:54 | MB ---
cc: LEONEL RIDLEY DATE OF CONSULTATION 03/05/2017 HISTORY Mr. Olsen is a 44-year-old black male with history of right MCA stroke with left hemiplegia, cardiomyopathy, ICD placement, [id number] myocardial function, hypertension, dyslipidemia, congestive heart failure and insulin-dependent diabetes mellitus. He presented with a two to three day history of progressive dyspnea and cough. He has not had any chest pain. He also has had lower extremity edema. His chest x-ray is consistent with bilateral pneumonia. PAST MEDICAL HISTORY Positive for: 1. Diabetes mellitus. 2. Hypertension. 3. Cardiomyopathy. 4. Right MCA stroke. 5. Dyslipidemia. 6. Neuropathy. 7. Obesity. 8. Urinary retention. 9. Coccyx pressure ulcer. 10. ICD placement. 11. PEG tube placement. 12. History of non-ST elevation myocardial infarction. 13. Congestive heart failure. MEDICATIONS Include: 1. Levaquin. 2. Bumex. 3. Buspirone. 4. Carvedilol. 5. Celebrex. 6. Lexapro. 7. Fluoxetine. 8. Gabapentin. 9. Lisinopril. 10. Metformin. 11. Pravastatin. 12. Ativan. 13. Coumadin. 14. Medrol Dosepak. 16. Magnesium. 17. Simethicone. 18. Aspirin. 19. Tylenol. 20. Dulcolax. 21. Fleets enema. 22. Glimepiride. 23. Milk of Magnesia. 24. Benzonatate. 25. Ipratropium / albuterol nebulizer. ALLERGIES None. SOCIAL HISTORY The patient does not smoke. He does not drink alcohol. He is . He is bed-bound living in a intermediate facility. FAMILY HISTORY The patient states that he did not know his parents. PHYSICAL EXAMINATION VITAL SIGNS: Blood pressure 139/97, pulse 95 and regular. HEENT: Negative. 2+ carotid upstrokes. No bruits. LUNGS: With decreased breath sounds, few rhonchi. HEART: Regular with no murmur, gallop or rub. ABDOMEN: Soft, obese. No bruits. CHEST: The left upper chest with scar after defibrillator placement which has healed. EXTREMITIES: With 1-2+ pitting edema. 1+ distal pulses. NEUROLOGIC: Examination shows left-sided weakness and speech difficulty. EKG was reviewed and showed sinus tachycardia, nonspecific T-wave changes. LABORATORY DATA Hemoglobin 12.3. Potassium 4.3, creatinine 1.2. Troponin 0.09 and 0.08. BNP 1429. DIAGNOSES 1. Congestive heart failure. 2. Cardiomyopathy. 3. Bilateral pneumonia. 4. Hypertension. 5. Diabetes mellitus. 6. History of cerebrovascular accident with residual left-sided hemiplegia. 7. Status post ICD placement. DISPOSITION Mr. Olsen will be monitored on telemetry. I recommend to continue therapy for congestive heart failure including diuresis. I recommend to closely monitor his renal function. We will obtain echocardiogram to evaluate his left ventricular function. We will continue therapy with beta chiquis and ROMI inhibitor for his congestive heart failure as well. We will continue antibiotics for suspected pneumonia. I will follow him for cardiology during his hospitalization. Leonel Ridley MD OQ/KK /4:16 PM /6:31 PM MILO
--- NOTE | 2017-03-05 19:47 | EKG ---
Date Performed: 03/04/2017 Time Performed: 14:43:10 PTAGE: 46 years EKG: SINUS TACHYCARDIA NONSPECIFIC T-WAVE ABNORMALITY ABNORMAL RHYTHM ECG Compared to the PREVIOUS TRACING from 08/26/10, no significant change DOCTOR: Israel Cottrell Interpretating Date/Time 03/05/2017 19:46:16
[2017-03-05] MEDS: PRAVASTATIN SOD 40 MG TAB PO SCH (20:59)
[2017-03-05 22:38] LABS: BACTERIA, URINE RARE /hpf; BLOOD, URINE NEG (NEG); COMMENT (UR) CULT NOT INDICATED; CULTURE IF INDICATED CULT NOT INDICATED; GLUCOSE,URINE NEG (NEG); KETONE, URINE NEG (NEG); MUCUS URINE FEW /lpf (OCC); NITRITE,URINE NEG (NEG); SQUAMOUS EPITHELIAL CELL URINE 1 /hpf (0-5); URINE COLOR YELLOW (YELLW/STRAW)
[2017-03-06] VITALS (9 sets, daily range): BP systolic 119–141; BP diastolic 96–99; PULSE 89–106; RESP 18–24; TEMP 96.1–97.3; O2SAT 93–98
[2017-03-06] MEDS: CEFEPIME INJ 2,000 MG in SODIUM CHLORIDE 0.9% INJ 100 ML IV SCH ×3 (04:59→22:59)
[2017-03-06 05:20] LABS: AUTOMATED NEUTROPHIL # 7.9 TH/MM3 (1.8-7.7); BASOPHIL % 0.5 % (0.0-2.0); EOSINOPHIL % 0.3 % (0.0-4.0); HEMATOCRIT 38.8 % (39.0-51.0); HEMO FLAGS DIFF FINAL; LYMPH % 8.7 % (9.0-44.0); LYMPHOCYTE # 0.8 TH/MM3 (1.0-4.8); MEAN CELL VOLUME 88.4 FL (80.0-100.0); MEAN CORPUSCULAR HEMOGLOBIN 28.5 PG (27.0-34.0); MEAN CORPUSCULAR HGB CONC 32.3 % (32.0-36.0); MONO % 8.4 % (0.0-8.0); NEUT % 82.1 % (16.0-70.0); PLATELET COUNT 316 TH/MM3 (150-450); RED BLOOD COUNT 4.39 MIL/MM3 (4.50-5.90); RED CELL DISTRIBUTION WIDTH 15.7 % (11.6-17.2); WHITE BLOOD COUNT 9.7 TH/MM3 (4.0-11.0)
[2017-03-06 05:22] LABS: INTERNATIONAL NORMALIZED RATIO 2.8 RATIO; PROTHROMBIN TIME - PATIENT 32.1 SEC (9.8-11.6)
[2017-03-06 05:40] LABS: BICARBONATE 24.2 MEQ/L (21.0-32.0); POTASSIUM 3.6 MEQ/L (3.5-5.1)
[2017-03-06] MEDS: INSULIN NovoLIN REGULAR SUPPLEMENTAL SCALE SQ SCH ×3 (06:06→16:00)
[2017-03-06] MEDS: RESP: ALBUTEROL 2.5 MG/IPRATROPIUM 0.5 MG NEB (SCH) NEB ×4 (07:54→22:05)
[2017-03-06] MEDS ORDERED: PHARMACY ORDERED LAB ONE (08:45)
[2017-03-06] MEDS: predniSONE 20 MG TAB PO SCH ×2 (09:00→23:00)
[2017-03-06] MEDS: SODIUM CHLORIDE 0.9% FLUSH 10 ML FLUSH IV FLUSH SCH ×2 (09:00→23:00)
--- NOTE | 2017-03-06 10:06 | HHI.PR ---
Subjective Remarks Resting in bed SOB at rest, on rm air placed O2 back on 2L morbid obesity Afebrile mild wheezing (Maria Dolores Morales) Objective Objective Results - Vital Signs Date Time Temp Pulse Resp B/P Pulse Ox O2 Delivery O2 Flow Rate FiO2 03/06/17 08:00 96.5 98 22 132/96 97 03/06/17 07:55 95 Nasal Cannula 3.00 03/06/17 04:00 96.3 99 24 141/99 98 03/06/17 00:00 97.1 89 24 139/97 95 03/05/17 20:50 108 03/05/17 20:00 97.0 107 24 117/79 97 03/05/17 19:54 98 Nasal Cannula 3.00 03/05/17 16:00 97.6 107 20 147/98 98 03/05/17 12:00 95.3 91 22 118/80 97 I/O 03/05/17 03/05/17 03/05/17 03/06/17 03/06/17 03/06/17 07:00 15:00 23:00 07:00 15:00 23:00 Intake Total 742 ml 1777 ml 670 ml 967 ml Output Total 500 ml 300 ml 1100 ml Balance 242 ml 1777 ml 370 ml -133 ml Intake Oral 0 ml 1000 ml 240 ml 320 ml IV Total 742 ml 777 ml 430 ml 647 ml Output Urine Total 500 ml 300 ml 1100 ml # Voids 2 # Bowel Movements 1 1 0 0 (Maria Dolores Morales) Result Diagram: 03/06/17 0430 03/06/17 0430 ROS General: Fatigue, Weakness, Other (10 point ROS done positives noted) Cardiac: Edema (lower extremities) Pulmonary: SOB (at rest and exertional), Wheezing (upper airway) /LATHE TURNER: Urgency (diuresis) (Maria Dolores Morales) Physical Exam Physical Exam PHYSICAL EXAMINATION GENERAL: This is a obese male who appears to be in mild to moderate shortness of breath distress. He is alert and awake, HEAD: Normocephalic, atraumatic OROPHARYNGEAL: Oropharynx without erythema or edema. NECK: Supple. Obese Trachea midline without deviation. CARDIAC: Regular rhythm, regular rate, S1 and S2 are heard distant LUNGS: Diminished to auscultation bilaterally. Upper airway expiratory wheezing, bibasilar rales ABDOMEN: Soft, nontender, obese round, bowel sounds present EXTREMITIES: 1+ edema. Bilateral NEUROLOGICAL: Patient mood and affect appropriate. Speech understandable slow secondary to old CVA SKIN:Warm and moist Objective Remarks I like the other Iesha chair better (Maria Dolores Morales) A/P Assessment and Plan (1) CHF (congestive heart failure) (2) Pneumonia (3) Cardiomyopathy (4) Hypertension (5) Insulin dependent diabetes mellitus (6) DM type 2 (diabetes mellitus, type 2) (7) Neuropathic pain (8) History of CVA with residual deficit Vital signs reviewed, currently patient is afebrile, trends are normal Labs reviewed leukocytosis resolved with current regimen 9.7, IV antibiotics, continue Anemia stable at 12.5, acute kidney injury with the elevation patient is getting IV Bumex and active diuresis BNP continues to be elevated at 1326 PT, INR 2.8, continue Coumadin regimen Pneumonia, failed outpatient therapy. Continues with shortness of breath and low volumes, Continue antibiotics, oxygen and DuoNeb's. Encouraged input oxygen back on patient when entered room. Shortness of breath was improved wearing oxygen Blood cultures are pending, still negative Continue by mouth steroids, and cough meds PT to eval and treat and get up in chair. Needs strengthening and active ROS. Increase activity out of bed which may assist with his breathing, Will recheck chest x-ray today. CHF exacerbation, B natruretic peptide 1326 History of cardiomyopathy, last echo showed EF of 20%. Has AICD Still has some lower extremity edema continue by mouth diuretics and monitor intake and output. Will order Bumex to be given early p.m. so patient doesn't state of all night urinating. 2-D echo, medical management, keep Bumex at IV dose due to his low volumes and shortness of breath Add Cardiology consult for expert opinion, CHF, increased shortness of breath today. Appreciate input. 2-D echo chest x-ray Insulin-dependent diabetes Accu-Cheks before meals and at bedtime with insulin therapy as needed Right MCA stroke with left-sided hemiplegia Continue with Coumadin and medical management , pharmacy assist for INR management Peripheral neuropathy, medical management Dyslipidemia, medical management Continue with Coumadin for DVT prophylaxis, therapeutic range Discussed with patient Discussed with nurse Discussed with Dr. joseph, seen on her behalf (Maria Dolores Morales) Assessment and Plan patient seen and examined breathing much better continue broad spectrum antibiotics and continue diuretics labs in am plan of care discussed with Maria Dolores GASPAR (Qiana Joseph MD) Maria Dolores Morales Mar 06, 2017 10:06 Qiana Joseph MD Mar 06, 2017 17:10
[2017-03-06] MEDS: BUMETANIDE INJ 1 MG/4 ML VIAL IV PUSH SCH (10:37)
[2017-03-06] MEDS: LISINOPRIL 5 MG TAB PO SCH (10:38)
[2017-03-06] MEDS: busPIRone HCL 10 MG TAB PO SCH (10:38)
[2017-03-06] MEDS: LORazepam 0.5 MG TAB PO SCH ×2 (10:38→22:59)
[2017-03-06] MEDS: GABAPENTIN 300 MG CAP PO SCH ×3 (10:38→16:45)
[2017-03-06] MEDS: CARVEDILOL 12.5 MG TAB PO SCH ×2 (10:38→22:59)
[2017-03-06] MEDS: ESCITALOPRAM OXALATE 10 MG TAB PO SCH (10:38)
[2017-03-06] MEDS: CELECOXIB 200 MG CAP PO SCH (10:39)
--- NOTE | 2017-03-06 10:57 | ECHRPT ---
Indication: HEART FAILURE CONCLUSIONS Technically difficult study. The left ventricle is not well visualized. Severely dilated left ventricle. Mild concentric left mason tricular hypertrophy. The left ventricular systolic function is severely reduced with an estimated ejection f raction in the range of 20-25%. There is global left ventricular dysfunction. The left atrial size is moderately dilated. Structurally normal tricuspid valve. No tricuspid valve stenosis. There is mild tricuspid valve regu rgitation. The estimated pulmonary arterial pressure is 38 mmHg. BP: 142 / 98 HR: 96 Rhythm: Sinus MEASUREMENTS (Male / Female) Normal Values Technical Quality:Technically difficult study 2D ECHO LV Diastolic Diameter PLAX 6.7 cm 4.2 - 5.9 / 3.9 - 5.3 cm LV Systolic Diameter PLAX 6.0 cm IVS Diastolic Thickness 1.4 cm 0.6 - 1.0 / 0.6 - 0.9 cm LVPW Diastolic Thickness 1.3 cm 0.6 - 1.0 / 0.6 - 0.9 cm LV Relative Wall Thickness 0.4 RV Internal Dim ED PLAX 3.0 cm LVOT Diameter 2.0 cm LA Systolic Diameter LX 4.8 cm 3.0 - 4.0 / 2.7 - 3.8 cm M-MODE Aortic Root Diameter MM 3.2 cm LA Systolic Diameter MM 4.7 cm LA Ao Ratio MM 1.5 AV Cusp Separation MM 2.0 cm DOPPLER AV Peak Velocity 72.1 cm/s AV Peak Gradient 2.1 mmHg LVOT Peak Velocity 48.4 cm/s LVOT Peak Gradient 0.9 mmHg AV Area Cont Eq pk 2.1 cm MV Area PHT 7.6 cm Mitral E Point Velocity 102.0 cm/s Mitral A Point Velocity 67.6 cm/s Mitral E to A Ratio 1.5 TV Peak Velocity 266.0 cm/s PV Peak Velocity 150.8 cm/s PV Peak Gradient 9.1 mmHg FINDINGS Left Ventricle The left ventricle is not well visualized. Severely dilated left ventricle. Mild concentric left mason tricular hypertrophy. The left ventricular systolic function is severely reduced with an estimated ejection f raction in the range of 20-25%. There is global left ventricular dysfunction. Right Ventricle Normal right ventricular size and systolic function. Left Atrium The left atrial size is moderately dilated. Right Atrium The right atrial size is normal. Atrial Septum Normal atrial septal thickness without atrial level shunting by limited color doppler interrogation. Aorta The aortic root and proximal ascending aorta are normal in size on limited imaging. Mitral Valve Structurally normal mitral valve. No mitral valve stenosis or regurgitation. Aortic Valve Trileaflet aortic valve. No aortic valve stenosis or regurgitation. Tricuspid Valve Structurally normal tricuspid valve. No tricuspid valve stenosis. There is mild tricuspid valve regu rgitation. The estimated pulmonary arterial pressure is 38 mmHg. Pulmonary Valve The pulmonary valve is not well visualized. Trivial pulmonary valve regurgitation. Vessels The inferior vena cava is normal in size. Pericardium No pericardial effusion. Abad Strauss MD, FACC (Electronically Signed) Final Date:06 March 2017 10:56
--- NOTE | 2017-03-06 13:30 | PD.CARD.PN ---
Subjective Subjective Remarks No CP or SOB, feels better Objective Medications Current Medications Medications (Trade) Dose Ordered Sig/Eber Route Start Time Stop Time Status Last Admin (NS 1000 ml Inj) 1,000 ml @ 30 mls/hr Q24H IV 03/04/17 18:00 03/05/17 18:00 (NS Flush) 2 ml UNSCH PRN IV FLUSH 03/04/17 17:30 Sodium Chloride 2 ml 2 ml BID IV FLUSH 03/04/17 21:00 03/05/17 20:58 Cefepime HCl 2000 mg/Sodium Chloride 100 ml @ 200 mls/hr Q8H IV 03/04/17 20:00 03/06/17 12:05 Azithromycin 500 mg/Sodium Chloride 250 ml @ 250 mls/hr Q24H IV 03/05/17 16:00 03/05/17 18:33 (Vancomycin Consult Pharmacy) 0 ml @ 0 mls/hr UNSCH OTHER 03/04/17 17:30 (Tylenol) 650 mg Q4H PRN PO 03/04/17 17:45 03/05/17 06:10 (Mag-Al Plus Susp Liq) 30 ml Q4H PRN PO 03/04/17 17:45 (Tessalon) 100 mg TID PRN PO 03/04/17 17:45 (Dulcolax Supp) 10 mg DAILY PRN RECTAL 03/04/17 17:45 (Buspar) 10 mg DAILY PO 03/05/17 09:00 03/06/17 10:38 (Coreg) 12.5 mg BID PO 03/04/17 21:00 03/06/17 10:38 (CeleBREX) 200 mg DAILY PO 03/05/17 09:00 03/06/17 10:39 (Lexapro) 10 mg DAILY PO 03/05/17 09:00 03/06/17 10:38 (Neurontin) 300 mg TID PO 03/04/17 18:00 03/06/17 10:38 (Imodium) 2 mg BID PRN PO 03/04/17 17:45 (Ativan) 0.5 mg BID PO 03/04/17 21:00 03/06/17 10:38 (Milk Of Magnesia Liq) 30 ml Q4H PRN PO 03/04/17 17:45 (Pravachol) 40 mg HS PO 03/04/17 21:00 03/05/17 20:59 (D50w (Vial) Inj) 50 ml UNSCH PRN IV 03/04/17 17:45 Glucagon 1 mg 1 mg UNSCH PRN OTHER 03/04/17 17:45 (Coumadin Consult Pharmacy) 0 ml @ 0 mls/hr UNSCH OTHER 03/04/17 17:45 (Prinivil) 5 mg DAILY PO 03/05/17 09:00 03/06/17 10:38 (Deltasone) 20 mg BID PO 03/04/17 21:00 03/06/17 09:00 (Coumadin) 4 mg DAILY@16 PO 03/06/17 16:00 Bumetanide 1 mg 1 mg BID@ IV PUSH 03/06/17 17:00 03/06/17 10:37 (Vancomycin Inj/ NS 500 ml Inj) 517.5 ml @ 250 mls/hr Q18H IV 03/06/17 15:00 Vital Signs / I&O Vital Signs Date Time Temp Pulse Resp B/P Pulse Ox O2 Delivery O2 Flow Rate FiO2 03/06/17 12:00 96.2 106 20 128/98 98 03/06/17 08:00 96.5 98 22 132/96 97 03/06/17 07:55 95 Nasal Cannula 3.00 03/06/17 04:00 96.3 99 24 141/99 98 03/06/17 00:00 97.1 89 24 139/97 95 03/05/17 20:50 108 03/05/17 20:00 97.0 107 24 117/79 97 03/05/17 19:54 98 Nasal Cannula 3.00 03/05/17 16:00 97.6 107 20 147/98 98 I/O 03/05/17 03/05/17 03/05/17 03/06/17 03/06/17 03/06/17 07:00 15:00 23:00 07:00 15:00 23:00 Intake Total 742 ml 1777 ml 670 ml 967 ml Output Total 500 ml 300 ml 1100 ml Balance 242 ml 1777 ml 370 ml -133 ml Intake Oral 0 ml 1000 ml 240 ml 320 ml IV Total 742 ml 777 ml 430 ml 647 ml Output Urine Total 500 ml 300 ml 1100 ml # Voids 2 # Bowel Movements 1 1 0 0 Physical Exam GENERAL: In NAD SKIN: Warm and dry. HEAD: Normocephalic. EYES: No scleral icterus. No injection or drainage. NECK: Supple, trachea midline. No JVD or lymphadenopathy. CARDIOVASCULAR: Regular rate and rhythm without murmurs, gallops, or rubs. RESPIRATORY: Breath sounds equal bilaterally. No accessory muscle use. GASTROINTESTINAL: Abdomen soft, non-tender, nondistended, obese. MUSCULOSKELETAL: No cyanosis, or edema. Speech difficulty Laboratory Laboratory Tests Test 03/05/17 03/05/17 03/06/17 03/06/17 17:42 20:14 04:30 10:30 Sodium Level 146 MEQ/L 148 MEQ/L Potassium Level 4.0 MEQ/L 3.6 MEQ/L Chloride Level 115 MEQ/L 112 MEQ/L Carbon Dioxide Level 22.4 MEQ/L 24.2 MEQ/L Anion Gap 9 MEQ/L 12 MEQ/L Blood Urea Nitrogen 33 MG/DL 34 MG/DL Creatinine 1.17 MG/DL 1.08 MG/DL Estimat Glomerular Filtration 81 ML/MIN 89 ML/MIN Rate Random Glucose 165 MG/DL 150 MG/DL Calcium Level 8.7 MG/DL 8.1 MG/DL Troponin I 0.07 NG/ML Urine Color YELLOW Urine Turbidity CLEAR Urine pH 5.0 Urine Specific [place] 1.012 Urine Protein TRACE mg/dL Urine Glucose (UA) NEG mg/dL Urine Ketones NEG mg/dL Urine Occult Blood NEG Urine Nitrite NEG Urine Bilirubin NEG Urine Urobilinogen LESS THAN 2.0 MG/DL Urine Leukocyte Esterase NEG Urine RBC 1 /hpf Urine WBC LESS THAN 1 /hpf Urine Squamous Epithelial 1 /hpf Cells Urine Bacteria RARE /hpf Urine Mucus FEW /lpf Microscopic Urinalysis Comment CULT NOT INDICATED White Blood Count 9.7 TH/MM3 Red Blood Count 4.39 MIL/MM3 Hemoglobin 12.5 GM/DL Hematocrit 38.8 % Mean Corpuscular Volume 88.4 FL Mean Corpuscular Hemoglobin 28.5 PG Mean Corpuscular Hemoglobin 32.3 % Concent Red Cell Distribution Width 15.7 % Platelet Count 316 TH/MM3 Mean Platelet Volume 8.1 FL Neutrophils (%) (Auto) 82.1 % Lymphocytes (%) (Auto) 8.7 % Monocytes (%) (Auto) 8.4 % Eosinophils (%) (Auto) 0.3 % Basophils (%) (Auto) 0.5 % Neutrophils # (Auto) 7.9 TH/MM3 Lymphocytes # (Auto) 0.8 TH/MM3 Monocytes # (Auto) 0.8 TH/MM3 Eosinophils # (Auto) 0.0 TH/MM3 Basophils # (Auto) 0.0 TH/MM3 CBC Comment DIFF FINAL Differential Comment Prothrombin Time 32.1 SEC Prothromb Time International 2.8 RATIO Ratio B-Type Natriuretic Peptide 1326 PG/ML Vancomycin Level Trough 24.7 MCG/ML Imaging Last Impressions Chest X-Ray 03/04/17 1443 Signed Impressions: Service Date/Time: Saturday, March 04, 2017 14:54 - CONCLUSION: Patchy partially consolidative infiltrates in both mid and lower lungs, left greater than right. Anil Sneed MD Assessment and Plan Problem List: (1) CHF (congestive heart failure) (2) Cardiomyopathy (3) Pneumonia (4) Morbid obesity with BMI of 40.0-44.9, adult (5) H/O: CVA (cerebrovascular accident) (6) ICD (implantable cardioverter-defibrillator) in place Assessment and Plan Symptoms improving. Continue tx for CHF including diuresis, ROMI-I and beta chiquis. Continue tx for pneumonia. Increase activity. Problem Qualifiers (1) CHF (congestive heart failure): Qualified Code: I50.23 - Acute on chronic systolic congestive heart failure (2) Cardiomyopathy: Qualified Code: I42.9 - Cardiomyopathy, unspecified type (3) Pneumonia: Qualified Code: J18.9 - Pneumonia of both lungs due to infectious organism, unspecified part of lung Leonel Ridley MD Mar 06, 2017 13:30
[2017-03-06] MEDS ORDERED: WARFARIN SOD 4 MG TAB PO SCH (16:00)
--- NOTE | 2017-03-06 16:42 | RADRPT ---
EXAM DATE/TIME: 03/06/2017 14:14 [place] COMPARISON: CHEST SINGLE AP, March 04, 2017, 14:54. INDICATIONS : Congestive heart failure. MEDICAL HISTORY : Stroke. SURGICAL HISTORY : Pacemaker. ENCOUNTER: Initial ACUITY: 2 days PAIN SCORE: 0/10 LOCATION: Bilateral chest FINDINGS: The exam demonstrates advanced cardiomegaly and bilateral effusion suggesting congestive failure. Thi s is similar when compared to previous exam. There is a transvenous pacer in good position. The bony structures are intact. CONCLUSION: 1. Bilateral effusions and cardiomegaly most consistent with congestive failure. Unchanged from previ ous. Kalyan Borja MD on March 06, 2017 at 16:39 Board Certified Radiologist. This report was verified electronically.
[2017-03-06] MEDS: AZITHROMYCIN 250 MG TAB PO SCH (16:45)
[2017-03-06] MEDS: VANCOMYCIN INJ 1,750 MG in SODIUM CHLORID 0.9% 500 ML INJ 500 ML IV SCH (16:48)
[2017-03-06] MEDS: PRAVASTATIN SOD 40 MG TAB PO SCH (23:00)
[2017-03-07] VITALS (10 sets, daily range): BP systolic 123–144; BP diastolic 74–99; PULSE 68–97; RESP 17–22; TEMP 95.3–97.3; O2SAT 93–100
[2017-03-07] MEDS ORDERED: BUMETANIDE INJ 1 MG/4 ML VIAL IV PUSH SCH (00:30)
[2017-03-07] MEDS: INSULIN NovoLIN REGULAR SUPPLEMENTAL SCALE SQ SCH ×5 (00:34→21:37)
[2017-03-07] MEDS: CEFEPIME INJ 2,000 MG in SODIUM CHLORIDE 0.9% INJ 100 ML IV SCH ×3 (05:43→21:00)
[2017-03-07 07:12] LABS: BASOPHIL % 0.3 % (0.0-2.0); EOSINOPHIL % 0.1 % (0.0-4.0); HEMATOCRIT 38.7 % (39.0-51.0); HEMO FLAGS DIFF FINAL; INTERNATIONAL NORMALIZED RATIO 2.9 RATIO; LYMPH % 7.7 % (9.0-44.0); LYMPHOCYTE # 0.7 TH/MM3 (1.0-4.8); MEAN CELL VOLUME 87.5 FL (80.0-100.0); MEAN CORPUSCULAR HEMOGLOBIN 28.9 PG (27.0-34.0); MONO % 8.7 % (0.0-8.0); NEUT % 83.2 % (16.0-70.0); PLATELET COUNT 344 TH/MM3 (150-450); RED BLOOD COUNT 4.42 MIL/MM3 (4.50-5.90); RED CELL DISTRIBUTION WIDTH 15.7 % (11.6-17.2); WHITE BLOOD COUNT 9.6 TH/MM3 (4.0-11.0)
[2017-03-07 07:34] LABS: BICARBONATE 26.6 MEQ/L (21.0-32.0); POTASSIUM 3.7 MEQ/L (3.5-5.1)
[2017-03-07] MEDS: CARVEDILOL 12.5 MG TAB PO SCH ×2 (09:00→21:00)
[2017-03-07] MEDS: busPIRone HCL 10 MG TAB PO SCH (09:00)
[2017-03-07] MEDS: predniSONE 20 MG TAB PO SCH ×2 (09:00→21:00)
[2017-03-07] MEDS: GABAPENTIN 300 MG CAP PO SCH ×3 (09:09→17:25)
[2017-03-07] MEDS: CELECOXIB 200 MG CAP PO SCH (09:09)
[2017-03-07] MEDS: LORazepam 0.5 MG TAB PO SCH ×2 (09:10→21:00)
[2017-03-07] MEDS: ESCITALOPRAM OXALATE 10 MG TAB PO SCH (09:10)
[2017-03-07] MEDS: BUMETANIDE INJ 1 MG/4 ML VIAL IV PUSH SCH ×2 (09:10→17:25)
[2017-03-07] MEDS: LISINOPRIL 5 MG TAB PO SCH (09:10)
[2017-03-07] MEDS: VANCOMYCIN INJ 1,750 MG in SODIUM CHLORID 0.9% 500 ML INJ 500 ML IV SCH (09:11)
[2017-03-07] MEDS: SODIUM CHLORIDE 0.9% FLUSH 10 ML FLUSH IV FLUSH SCH ×2 (09:11→21:11)
[2017-03-07] MEDS: RESP: ALBUTEROL 2.5 MG/IPRATROPIUM 0.5 MG NEB (SCH) NEB ×4 (09:46→20:07)
--- NOTE | 2017-03-07 10:17 | HHI.PR ---
Subjective Remarks Resting in bed morbid obesity When sleeping no shortness of breath noted Keeping O2 on today Audible wheezing upper airway (Maria Dolores Morales) Objective Objective Results - Vital Signs Date Time Temp Pulse Resp B/P Pulse Ox O2 Delivery O2 Flow Rate FiO2 03/07/17 09:47 93 2.00 03/07/17 08:00 95.5 96 20 127/94 93 03/07/17 07:40 78 03/07/17 07:40 Nasal Cannula 2.00 03/07/17 07:40 78 03/07/17 04:00 96.8 94 22 134/99 95 03/07/17 00:00 96.9 97 22 137/97 100 03/06/17 22:52 94 Nasal Cannula 4.00 03/06/17 22:05 96 Simple Mask 8.00 03/06/17 20:00 97.3 100 22 119/96 93 03/06/17 19:43 98 03/06/17 16:00 96.1 99 18 132/98 98 03/06/17 12:00 96.2 106 20 128/98 98 I/O 03/06/17 03/06/17 03/06/17 03/07/17 03/07/17 03/07/17 07:00 15:00 23:00 07:00 15:00 23:00 Intake Total 967 ml 1200 ml 1480 ml 340 ml 0 ml Output Total 1100 ml 400 ml 1250 ml Balance -133 ml 1200 ml 1080 ml -910 ml 0 ml Intake Oral 320 ml 1200 ml 480 ml 240 ml IV Total 647 ml 1000 ml 100 ml 0 ml Output Urine Total 1100 ml 400 ml 1250 ml # Voids 3 2 # Bowel Movements 0 0 0 0 (Maria Dolores Morales) Result Diagram: 03/07/17 0634 03/07/17 0634 ROS General: Fatigue, Weakness, Other (10 point ROS done positives noted) Cardiac: Edema Pulmonary: Cough (occasional), SOB, Wheezing (dual nebs increased) GI: BM Neuro/MS: Other (bilateral lower extremity edema) Skin: Other (morbid obesity) (Maria Dolores Morales) Physical Exam Physical Exam PHYSICAL EXAMINATION GENERAL: This is a morbidly obese male Audible wheezing and shortness of breath while awake HEAD: Normocephalc, atraumatic. OROPHARYNGEAL: Oropharynx clear NECK: Supple., Obese, short neck Trachea midline without deviation. CARDIAC: Regular rhythm, regular rate, distant heart sounds LUNGS: Diminished to auscultation bilaterally. Audible inspiratory and expiratory wheeze, positive rhonchi and bibasilar rale. Using his accessory muscles to breathe. ABDOMEN: Large nontender, no organomegaly or masses. Bowel sounds present. Appetite fairly good EXTREMITIES: LE edema. NEUROLOGICAL: Patient mood and affect talkative and active SKIN:Warm, dry (Maria Dolores Morales) A/P Assessment and Plan (1) CHF (congestive heart failure) (2) Pneumonia (3) Cardiomyopathy (4) Hypertension (5) Insulin dependent diabetes mellitus (6) DM type 2 (diabetes mellitus, type 2) (7) Neuropathic pain (8) History of CVA with residual deficit Vital signs reviewed, currently patient is afebrile, BP diastolic in the 90s, increase lisinopril dose . Labs reviewed leukocytosis resolved Anemia secondary to chronic disease acute kidney injury, B UN 34, sodium 148 she continues to get IV Bumex BNP elevated pending this a.m. INR continue Coumadin regimen Pneumonia, failed outpatient therapy. Continues with shortness of breath and low volumes, increase dual nebs to every 4 [id number] now. Patient's audible wheezing is persistent especially while awake Continue antibiotics, oxygen Blood cultures are pending, still negative Continue by mouth steroids, and cough meds PT to eval and treat, patient is requesting irregular Iesha chair will check on its availability CHF exacerbation, BNP elevated History of cardiomyopathy, last echo showed EF of 20%. Has AICD Still has some lower extremity edema continue by mouth diuretics and monitor intake and output. Continue IV Bumex 2-D echo, medical management, keep Bumex at IV dose due to his low volumes and shortness of breath Cardiology consult for expert opinion, CHF, Appreciate input. Chest x-ray today more consistent with congestive heart failure, continues with bilateral pleural effusions Insulin-dependent diabetes Accu-Cheks before meals and at bedtime with insulin therapy as needed Right MCA stroke with left-sided hemiplegia Continue with Coumadin and medical management , pharmacy assist for INR management Peripheral neuropathy, medical management Dyslipidemia, medical management Continue with Coumadin for DVT prophylaxis, therapeutic range 2.9 Discussed with patient Discussed with nurse Discussed with Dr. joseph, seen on her behalf (Maria Dolores Morales) Assessment and Plan patient seen and examined looking better continue diuresis monitor renal function monitor sodium fluid restriction discussed with patient discussed with Maria Dolores GASPAR labs in am labs in am (Qiana Joseph MD) Maria Dolores Morales Mar 07, 2017 10:17 Qiana Joseph MD Mar 07, 2017 16:02
[2017-03-07] MEDS ORDERED: RESP: ALBUTEROL 2.5 MG/IPRATROPIUM 0.5 MG NEB (PRN) NEB (10:45)
--- NOTE | 2017-03-07 15:34 | PD.CARD.PN ---
Subjective Subjective Remarks No CP or SOB, feels better Objective Medications Current Medications Medications (Trade) Dose Ordered Sig/Eber Route Start Time Stop Time Status Last Admin (NS Flush) 2 ml UNSCH PRN IV FLUSH 03/04/17 17:30 Sodium Chloride 2 ml 2 ml BID IV FLUSH 03/04/17 21:00 03/07/17 09:11 Cefepime HCl 2000 mg/Sodium Chloride 100 ml @ 200 mls/hr Q8H IV 03/04/17 20:00 03/07/17 12:44 (Vancomycin Consult Pharmacy) 0 ml @ 0 mls/hr UNSCH OTHER 03/04/17 17:30 (Tylenol) 650 mg Q4H PRN PO 03/04/17 17:45 03/05/17 06:10 (Mag-Al Plus Susp Liq) 30 ml Q4H PRN PO 03/04/17 17:45 (Tessalon) 100 mg TID PRN PO 03/04/17 17:45 (Dulcolax Supp) 10 mg DAILY PRN RECTAL 03/04/17 17:45 (Buspar) 10 mg DAILY PO 03/05/17 09:00 03/07/17 09:00 (Coreg) 12.5 mg BID PO 03/04/17 21:00 03/07/17 09:00 (CeleBREX) 200 mg DAILY PO 03/05/17 09:00 03/07/17 09:09 (Lexapro) 10 mg DAILY PO 03/05/17 09:00 03/07/17 09:10 (Neurontin) 300 mg TID PO 03/04/17 18:00 03/07/17 12:44 (Imodium) 2 mg BID PRN PO 03/04/17 17:45 (Ativan) 0.5 mg BID PO 03/04/17 21:00 03/07/17 09:10 (Milk Of Magnesia Liq) 30 ml Q4H PRN PO 03/04/17 17:45 (Pravachol) 40 mg HS PO 03/04/17 21:00 03/06/17 23:00 (D50w (Vial) Inj) 50 ml UNSCH PRN IV 03/04/17 17:45 Glucagon 1 mg 1 mg UNSCH PRN OTHER 03/04/17 17:45 (Coumadin Consult Pharmacy) 0 ml @ 0 mls/hr UNSCH OTHER 03/04/17 17:45 (Deltasone) 20 mg BID PO 03/04/17 21:00 03/07/17 09:00 (Coumadin) 4 mg DAILY@16 PO 03/06/17 16:00 Hold 03/06/17 16:45 Bumetanide 1 mg 1 mg BID@,17 IV PUSH 03/06/17 17:00 03/07/17 09:10 (Vancomycin Inj/ NS 500 ml Inj) 517.5 ml @ 250 mls/hr Q18H IV 03/06/17 15:00 Hold 03/07/17 09:11 (Zithromax) 500 mg Q24H PO 03/06/17 18:00 03/06/17 16:45 (Prinivil) 10 mg DAILY PO 03/08/17 09:00 Vital Signs / I&O Vital Signs Date Time Temp Pulse Resp B/P Pulse Ox O2 Delivery O2 Flow Rate FiO2 03/07/17 15:03 96 03/07/17 15:03 96 03/07/17 12:00 96.5 87 18 123/95 98 03/07/17 09:47 93 2.00 03/07/17 08:00 95.5 96 20 127/94 93 03/07/17 07:40 78 03/07/17 07:40 Nasal Cannula 2.00 03/07/17 07:40 78 03/07/17 04:00 96.8 94 22 134/99 95 03/07/17 00:00 96.9 97 22 137/97 100 03/06/17 22:52 94 Nasal Cannula 4.00 03/06/17 22:05 96 Simple Mask 8.00 03/06/17 20:00 97.3 100 22 119/96 93 03/06/17 19:43 98 03/06/17 16:00 96.1 99 18 132/98 98 I/O 03/06/17 03/06/17 03/06/17 03/07/17 03/07/17 03/07/17 07:00 15:00 23:00 07:00 15:00 23:00 Intake Total 967 ml 1200 ml 1480 ml 340 ml 200 ml Output Total 1100 ml 400 ml 1250 ml Balance -133 ml 1200 ml 1080 ml -910 ml 200 ml Intake Oral 320 ml 1200 ml 480 ml 240 ml IV Total 647 ml 1000 ml 100 ml 200 ml Output Urine Total 1100 ml 400 ml 1250 ml # Voids 3 2 # Bowel Movements 0 0 0 0 Physical Exam GENERAL: In NAD SKIN: Warm and dry. HEAD: Normocephalic. EYES: No scleral icterus. No injection or drainage. NECK: Supple, trachea midline. No JVD or lymphadenopathy. CARDIOVASCULAR: Regular rate and rhythm without murmurs, gallops, or rubs. RESPIRATORY: Breath sounds equal bilaterally. No accessory muscle use. GASTROINTESTINAL: Abdomen soft, non-tender, nondistended, very obese. MUSCULOSKELETAL: No cyanosis, or edema. Speech difficulty Laboratory Laboratory Tests Test 03/07/17 06:34 White Blood Count 9.6 TH/MM3 Red Blood Count 4.42 MIL/MM3 Hemoglobin 12.8 GM/DL Hematocrit 38.7 % Mean Corpuscular Volume 87.5 FL Mean Corpuscular Hemoglobin 28.9 PG Mean Corpuscular Hemoglobin 33.0 % Concent Red Cell Distribution Width 15.7 % Platelet Count 344 TH/MM3 Mean Platelet Volume 8.3 FL Neutrophils (%) (Auto) 83.2 % Lymphocytes (%) (Auto) 7.7 % Monocytes (%) (Auto) 8.7 % Eosinophils (%) (Auto) 0.1 % Basophils (%) (Auto) 0.3 % Neutrophils # (Auto) 8.0 TH/MM3 Lymphocytes # (Auto) 0.7 TH/MM3 Monocytes # (Auto) 0.8 TH/MM3 Eosinophils # (Auto) 0.0 TH/MM3 Basophils # (Auto) 0.0 TH/MM3 CBC Comment DIFF FINAL Differential Comment Prothrombin Time 34.0 SEC Prothromb Time International 2.9 RATIO Ratio Sodium Level 148 MEQ/L Potassium Level 3.7 MEQ/L Chloride Level 112 MEQ/L Carbon Dioxide Level 26.6 MEQ/L Anion Gap 9 MEQ/L Blood Urea Nitrogen 34 MG/DL Creatinine 1.13 MG/DL Estimat Glomerular Filtration 85 ML/MIN Rate Random Glucose 164 MG/DL Calcium Level 8.5 MG/DL B-Type Natriuretic Peptide 1080 PG/ML Random Vancomycin Level 23.9 COMMENT Imaging Last Impressions Chest X-Ray 03/06/17 0000 Signed Impressions: Service Date/Time: February 14:14 - CONCLUSION: 1. Bilateral effusions and cardiomegaly most consistent with congestive failure. Unchanged from previous. Kalyan Borja MD Assessment and Plan Problem List: (1) CHF (congestive heart failure) (2) Cardiomyopathy (3) Pneumonia (4) Morbid obesity with BMI of 40.0-44.9, adult (5) H/O: CVA (cerebrovascular accident) (6) ICD (implantable cardioverter-defibrillator) in place Assessment and Plan SOB improved. Continue tx for CHF including diuresis. Continue ROMI-I and beta chiquis. Continue tx for pneumonia. Increase activity, PT. Problem Qualifiers (1) CHF (congestive heart failure): Qualified Code: I50.23 - Acute on chronic systolic congestive heart failure (2) Cardiomyopathy: Qualified Code: I42.9 - Cardiomyopathy, unspecified type (3) Pneumonia: Qualified Code: J18.9 - Pneumonia of both lungs due to infectious organism, unspecified part of lung Leonel Ridley MD Mar 07, 2017 15:34
[2017-03-07] MEDS ORDERED: WARFARIN SOD 2 MG TAB PO SCH (16:00)
[2017-03-07] MEDS: AZITHROMYCIN 250 MG TAB PO SCH (17:25)
[2017-03-07] MEDS: PRAVASTATIN SOD 40 MG TAB PO SCH (21:00)
[2017-03-08] VITALS (12 sets, daily range): BP systolic 111–126; BP diastolic 71–90; PULSE 79–100; RESP 18–20; TEMP 95.5–98.5; O2SAT 90–99
[2017-03-08] MEDS: RESP: ALBUTEROL 2.5 MG/IPRATROPIUM 0.5 MG NEB (SCH) NEB ×7 (00:33→23:34)
[2017-03-08] MEDS: CEFEPIME INJ 2,000 MG in SODIUM CHLORIDE 0.9% INJ 100 ML IV SCH ×2 (04:06→11:27)
[2017-03-08] MEDS: INSULIN NovoLIN REGULAR SUPPLEMENTAL SCALE SQ SCH ×4 (06:16→20:04)
[2017-03-08 07:12] LABS: BICARBONATE 26.1 MEQ/L (21.0-32.0); POTASSIUM 3.9 MEQ/L (3.5-5.1)
[2017-03-08 07:16] LABS: INTERNATIONAL NORMALIZED RATIO 2.6 RATIO; PROTHROMBIN TIME - PATIENT 29.9 SEC (9.8-11.6)
[2017-03-08] MEDS ORDERED: LISINOPRIL 10 MG TAB PO SCH (09:00)
[2017-03-08] MEDS: CELECOXIB 200 MG CAP PO SCH (09:22)
[2017-03-08] MEDS: ESCITALOPRAM OXALATE 10 MG TAB PO SCH (09:22)
[2017-03-08] MEDS: CARVEDILOL 12.5 MG TAB PO SCH ×2 (09:22→19:58)
[2017-03-08] MEDS: LORazepam 0.5 MG TAB PO SCH ×2 (09:22→19:58)
[2017-03-08] MEDS: busPIRone HCL 10 MG TAB PO SCH (09:22)
[2017-03-08] MEDS: predniSONE 20 MG TAB PO SCH (09:22)
[2017-03-08] MEDS: GABAPENTIN 300 MG CAP PO SCH ×3 (09:22→17:20)
[2017-03-08] MEDS: BUMETANIDE INJ 1 MG/4 ML VIAL IV PUSH SCH ×2 (09:23→17:21)
[2017-03-08] MEDS: SODIUM CHLORIDE 0.9% FLUSH 10 ML FLUSH IV FLUSH SCH ×2 (09:23→19:58)
--- NOTE | 2017-03-08 10:03 | HHI.PR ---
Subjective Remarks Resting in bed morbid obesity When sleeping no shortness of breath noted O2 off for now, wheezing improved, (Maria Dolores Morales) Objective Objective Results - Vital Signs Date Time Temp Pulse Resp B/P Pulse Ox O2 Delivery O2 Flow Rate FiO2 03/08/17 08:50 98 21 03/08/17 08:00 97.0 91 19 122/90 98 03/08/17 05:26 90 21 03/08/17 04:00 97.0 88 20 126/84 97 03/08/17 00:36 98 Nasal Cannula 3.00 03/08/17 00:00 95.5 82 20 111/71 99 03/07/17 22:09 97.3 92 18 144/86 98 03/07/17 20:55 98 Nasal Cannula 4.00 03/07/17 16:00 95.3 68 17 129/74 95 03/07/17 15:31 98 Nasal Cannula 4.00 03/07/17 15:03 96 03/07/17 15:03 96 03/07/17 12:00 96.5 87 18 123/95 98 I/O 03/07/17 03/07/17 03/07/17 03/08/17 03/08/17 03/08/17 07:00 15:00 23:00 07:00 15:00 23:00 Intake Total 340 ml 800 ml 720 ml 300 ml Output Total 1250 ml 600 ml 675 ml 900 ml Balance -910 ml 200 ml 45 ml -600 ml Intake Oral 240 ml 600 ml 720 ml 100 ml IV Total 100 ml 200 ml 200 ml Output Urine Total 1250 ml 600 ml 675 ml 900 ml # Voids 2 1 2 # Bowel Movements 0 0 0 0 (Maria Dolores Morales) Result Diagram: 03/07/17 0634 03/08/17 0555 ROS General: Fatigue, Weakness, Other (10 point ROS done, positives noted, gradual improvement) Pulmonary: Cough, SOB, Wheezing (improved) Neuro/MS: Other (old cva, speech slow) (Maria Dolores Morales) Physical Exam Physical Exam PHYSICAL EXAMINATION GENERAL: This is a morbidly obese male who appears to be in no acute distress when sleeping He is alert and awake, HEAD: Normocephalic OROPHARYNGEAL: Oropharynx clear NECK: Supple. Trachea midline CARDIAC: Regular rhythm, regular rate, S1 and S2 distant LUNGS: Diminished to auscultation bilaterally. Mild wheeze, bibasilar rales ABDOMEN: Soft, obese, nontender, bowel sounds present EXTREMITIES: Trace to 1+ edema. Extremities warm NEUROLOGICAL: Patient mood appropriate, speech slow SKIN:Warm and dry (Maria Dolores Morales) A/P Assessment and Plan (1) CHF (congestive heart failure) (2) Pneumonia (3) Cardiomyopathy (4) Hypertension (5) Insulin dependent diabetes mellitus (6) DM type 2 (diabetes mellitus, type 2) (7) Neuropathic pain (8) History of CVA with residual deficit Vital signs reviewed, currently patient is afebrile, monitoring BP, increased lisinopril dose on - Labs reviewed leukocytosis resolved Anemia secondary to chronic disease acute kidney injury essentially unchanged BNP decreased today 769, patient has slow gradual improvement INR continue Coumadin regimen Pneumonia, failed outpatient therapy. Continues with shortness of breath and low volumes, increase dual nebs to every 4 [id number] which seem to be helping. Wheezing is minimal today Continue antibiotics, oxygen , Blood cultures negative Continue by mouth steroids, and cough meds PT to eval and treat, patient is requesting irregular Iesha chair will check on its availability CHF exacerbation, BNP with gradual decrease 769, patient's responding to IV Bumex History of cardiomyopathy, last echo showed EF of 20%. Has AICD 2-D echo, medical management, keep Bumex at IV dose due to his low volumes and shortness of breath Cardiology consult for expert opinion, CHF, Appreciate input. Chest x-ray today more consistent with congestive heart failure, continues with bilateral pleural effusions Insulin-dependent diabetes Accu-Cheks before meals and at bedtime with insulin therapy as needed Right MCA stroke with left-sided hemiplegia Continue with Coumadin and medical management , pharmacy assist for INR management, INR 2.6 today Peripheral neuropathy, medical management Dyslipidemia, medical management Discussed with patient Discussed with nurse Discussed with Dr. Mari, seen on his behalf Discharge planning in a few days when congestive heart failure and pneumonia are controlled. (Maria Dolores Morales) Assessment and Plan pt is seen & examined d/w PT , feels better/less congested denies CP breathing is better change abx to po cont IV diuresis for another days fluid restriction 1500 cc/day cont BB/ROMI-I , inc dose, monitor BP, monitor Bun/Cr cont coumadin, f/u INR PT eval ss for d/c planning d/w maria dolores stephens f/u (Enmanuel Mari MD) Maria Dolores Morales Mar 08, 2017 10:03 Enmanuel Mari MD Mar 08, 2017 11:54
--- NOTE | 2017-03-08 15:38 | PD.CARD.PN ---
Subjective Subjective Remarks No CP or SOB, feels fine, wishes to have Glucerna Objective Medications Current Medications Medications (Trade) Dose Ordered Sig/Eber Route Start Time Stop Time Status Last Admin (NS Flush) 2 ml UNSCH PRN IV FLUSH 03/04/17 17:30 (NS Flush) 2 ml BID IV FLUSH 03/04/17 21:00 03/08/17 09:23 (Tylenol) 650 mg Q4H PRN PO 03/04/17 17:45 03/05/17 06:10 (Mag-Al Plus Susp Liq) 30 ml Q4H PRN PO 03/04/17 17:45 (Tessalon) 100 mg TID PRN PO 03/04/17 17:45 (Dulcolax Supp) 10 mg DAILY PRN RECTAL 03/04/17 17:45 (Buspar) 10 mg DAILY PO 03/05/17 09:00 03/08/17 09:22 (Coreg) 12.5 mg BID PO 03/04/17 21:00 03/08/17 09:22 (Lexapro) 10 mg DAILY PO 03/05/17 09:00 03/08/17 09:22 (Neurontin) 300 mg TID PO 03/04/17 18:00 03/08/17 11:27 (Imodium) 2 mg BID PRN PO 03/04/17 17:45 (Ativan) 0.5 mg BID PO 03/04/17 21:00 03/08/17 09:22 (Milk Of Magnesia Liq) 30 ml Q4H PRN PO 03/04/17 17:45 (Pravachol) 40 mg HS PO 03/04/17 21:00 03/07/17 21:00 (D50w (Vial) Inj) 50 ml UNSCH PRN IV 03/04/17 17:45 Glucagon 1 mg 1 mg UNSCH PRN OTHER 03/04/17 17:45 (Coumadin Consult Pharmacy) 0 ml @ 0 mls/hr UNSCH OTHER 03/04/17 17:45 (Bumex Inj) 1 mg BID@ IV PUSH 03/06/17 17:00 03/08/17 09:23 (Zithromax) 500 mg Q24H PO 03/06/17 18:00 03/07/17 17:25 (Coumadin) 2.5 mg DAILY@16 PO 03/08/17 16:00 (Ceftin) 500 mg Q12HR PO 03/08/17 21:00 (Prinivil) 20 mg DAILY PO 03/09/17 09:00 (Deltasone) 20 mg DAILY PO 03/09/17 09:00 Vital Signs / I&O Vital Signs Date Time Temp Pulse Resp B/P Pulse Ox O2 Delivery O2 Flow Rate FiO2 03/08/17 12:00 96.2 97 18 118/81 99 03/08/17 08:50 98 21 03/08/17 08:00 97.0 91 19 122/90 98 03/08/17 05:26 90 21 03/08/17 04:00 97.0 88 20 126/84 97 03/08/17 00:36 98 Nasal Cannula 3.00 03/08/17 00:00 95.5 82 20 111/71 99 03/07/17 22:09 97.3 92 18 144/86 98 03/07/17 20:55 98 Nasal Cannula 4.00 03/07/17 16:00 95.3 68 17 129/74 95 I/O 03/07/17 03/07/17 03/07/17 03/08/17 03/08/17 03/08/17 07:00 15:00 23:00 07:00 15:00 23:00 Intake Total 340 ml 800 ml 720 ml 300 ml 850 ml Output Total 1250 ml 600 ml 675 ml 900 ml 0 ml Balance -910 ml 200 ml 45 ml -600 ml 850 ml Intake Oral 240 ml 600 ml 720 ml 100 ml 750 ml IV Total 100 ml 200 ml 200 ml 100 ml Output Urine Total 1250 ml 600 ml 675 ml 900 ml 0 ml # Voids 2 1 2 # Bowel Movements 0 0 0 0 0 Physical Exam GENERAL: In NAD SKIN: Warm and dry. HEAD: Normocephalic. EYES: No scleral icterus. No injection or drainage. NECK: Supple, trachea midline. No JVD or lymphadenopathy. CARDIOVASCULAR: Regular rate and rhythm without murmurs, gallops, or rubs. RESPIRATORY: Breath sounds equal bilaterally. No accessory muscle use. GASTROINTESTINAL: Abdomen soft, non-tender, nondistended, very obese. MUSCULOSKELETAL: No cyanosis, or edema. Speech difficulty Laboratory Laboratory Tests Test 03/08/17 05:55 Prothrombin Time 29.9 SEC Prothromb Time International 2.6 RATIO Ratio Sodium Level 146 MEQ/L Potassium Level 3.9 MEQ/L Chloride Level 111 MEQ/L Carbon Dioxide Level 26.1 MEQ/L Anion Gap 9 MEQ/L Blood Urea Nitrogen 36 MG/DL Creatinine 1.11 MG/DL Estimat Glomerular Filtration 86 ML/MIN Rate Random Glucose 175 MG/DL Calcium Level 8.6 MG/DL B-Type Natriuretic Peptide 769 PG/ML Random Vancomycin Level 19.1 COMMENT Imaging Last Impressions Chest X-Ray 03/06/17 0000 Signed Impressions: Service Date/Time: , March 06, 2017 14:14 - CONCLUSION: 1. Bilateral effusions and cardiomegaly most consistent with congestive failure. Unchanged from previous. Kalyan Borja MD Assessment and Plan Problem List: (1) CHF (congestive heart failure) (2) Cardiomyopathy (3) Pneumonia (4) Morbid obesity with BMI of 40.0-44.9, adult (5) H/O: CVA (cerebrovascular accident) (6) ICD (implantable cardioverter-defibrillator) in place Assessment and Plan No new cardiac issues. SOB improved. Continue tx for CHF including diuresis. Continue ROMI-I and beta chiquis, titrate if necessary. Continue abxs for pneumonia. Increase activity, PT. Problem Qualifiers (1) CHF (congestive heart failure): Qualified Code: I50.23 - Acute on chronic systolic congestive heart failure (2) Cardiomyopathy: Qualified Code: I42.9 - Cardiomyopathy, unspecified type (3) Pneumonia: Qualified Code: J18.9 - Pneumonia of both lungs due to infectious organism, unspecified part of lung Leonel Ridley MD Mar 08, 2017 15:38
[2017-03-08] MEDS: WARFARIN SOD 2.5 MG TAB PO SCH (17:21)
[2017-03-08] MEDS: AZITHROMYCIN 250 MG TAB PO SCH (17:21)
[2017-03-08] MEDS: CEFUROXIME AXETIL 500 MG TAB PO SCH (19:58)
[2017-03-08] MEDS: PRAVASTATIN SOD 40 MG TAB PO SCH (19:58)
[2017-03-09] VITALS (12 sets, daily range): BP systolic 106–127; BP diastolic 66–92; PULSE 78–95; RESP 16–28; TEMP 96.1–98.1; O2SAT 88–100
[2017-03-09] MEDS: RESP: ALBUTEROL 2.5 MG/IPRATROPIUM 0.5 MG NEB (SCH) NEB ×6 (03:28→23:52)
[2017-03-09 05:14] LABS: PROTHROMBIN TIME - PATIENT 23.3 SEC (9.8-11.6)
[2017-03-09] MEDS: INSULIN NovoLIN REGULAR SUPPLEMENTAL SCALE SQ SCH ×4 (05:44→19:54)
[2017-03-09] MEDS: LISINOPRIL 20 MG TAB PO SCH (08:43)
[2017-03-09] MEDS: predniSONE 20 MG TAB PO SCH (08:43)
[2017-03-09] MEDS: LORazepam 0.5 MG TAB PO SCH ×2 (08:43→19:48)
[2017-03-09] MEDS: ESCITALOPRAM OXALATE 10 MG TAB PO SCH (08:43)
[2017-03-09] MEDS: busPIRone HCL 10 MG TAB PO SCH (08:43)
[2017-03-09] MEDS: GABAPENTIN 300 MG CAP PO SCH ×3 (08:43→17:22)
[2017-03-09] MEDS: CARVEDILOL 12.5 MG TAB PO SCH ×2 (08:43→19:48)
[2017-03-09] MEDS: CEFUROXIME AXETIL 500 MG TAB PO SCH ×2 (08:43→19:48)
[2017-03-09] MEDS: SODIUM CHLORIDE 0.9% FLUSH 10 ML FLUSH IV FLUSH SCH ×2 (08:44→19:48)
[2017-03-09] MEDS: BUMETANIDE INJ 1 MG/4 ML VIAL IV PUSH SCH ×2 (08:44→17:22)
--- NOTE | 2017-03-09 14:40 | HHI.PR ---
Subjective History of Present Illness i am ok breathing is ok Occ cough , no sputum No CP No fever or chills NO N/V NO abd pain Offers no other c/o friend is at bedside Vitals/Results Intake & Output 03/08/17 03/08/17 03/09/17 15:00 23:00 07:00 Intake Total 850 ml 280 ml 180 ml Output Total 0 ml 700 ml 700 ml Balance 850 ml -420 ml -520 ml Intake Oral 750 ml 280 ml 180 ml IV Total 100 ml Output Urine Total 0 ml 700 ml 700 ml # Bowel Movements 0 0 Vital Signs Vital Signs Date Time Temp Pulse Resp B/P Pulse Ox O2 Delivery O2 Flow Rate FiO2 03/09/17 12:00 96.1 86 16 106/66 97 03/09/17 08:30 Nasal Cannula 3.00 03/09/17 08:00 96.3 88 18 120/84 88 03/09/17 07:46 98 21 03/09/17 04:32 96.9 84 20 109/71 98 03/09/17 03:30 96 21 03/08/17 23:53 97.6 79 20 117/77 95 03/08/17 23:36 97 21 03/08/17 20:00 98.5 100 18 118/80 98 03/08/17 16:16 99 21 03/08/17 16:00 96.3 85 20 121/85 98 CBC/BMP: 03/07/17 0634 03/08/17 0555 Lab Results Laboratory Tests Test 03/09/17 04:26 Prothrombin Time 23.3 SEC Prothromb Time International 2.0 RATIO Ratio Physical Exam General General Appearance: No Acute Distress, Comfortable, Obese Eyes Eye Exam: Pupils Equal, Sclera White, Extraocular Movement Intact Ears & Nose Ears & Nose Exam: Nasal Mucosa [place] Throat Throat Exam: Oral Mucosa [place] & Moist Neck Neck Exam: Neck Supple, Trachea Midline Pulmonary Resp Exam: Clear Bilaterally, Breath Sounds Equal Resp Remarks distant BS Cardiology CV Exam: Regular, Normal Sinus Rhythm Gastrointestinal/Abdomen GI Exam: Soft, Non-Tender, Bowel Sounds Present GI Remarks huge abd/ protuberant Integumentary Skin Exam: Warm, Dry Extremeties Extremities Exam: No Edema Neurologic Neuro Exam: Alert, Awake, Oriented Neuro Remarks R hemiplegia Psychiatric Psych Exam: Appropriate Responses VTE Prophylaxis VTE Prophylaxis Meds: Coumadin PUD Prophylasis PUD Prophylaxis: Protonix Assessment/Plan Assessment/Plan Assessment and Plan (1) CHF acute on chronic systolic (congestive heart failure) (2) Pneumonia ? aspiration (3) Dilated Cardiomyopathy EF 20 % s/p AICD (4) Hypertension (5) Insulin dependent diabetes mellitus (6) DM type 2 (diabetes mellitus, type 2) (7) Neuropathic pain (8) History of R MCA CVA with residual deficit;[left hemiplegia] (9) Hx Morbid obesity fluid restriction IV bumex/kcl BB ROMI-I card input appreciated/ no further cardiac intervention cont coumadin , f/u INR O2 aerosol tx blood c/s neg po abx taper steroids Diabetic diet Insulin Accu-Cheks before meals and at bedtime with insulin therapy as needed lexapro/buspar pepcid PT aziza ss for dc,planning /d/c to [place] when arrangements are made d/w PT & friend Enmanuel Mari MD Mar 09, 2017 14:40
[2017-03-09] MEDS: AZITHROMYCIN 250 MG TAB PO SCH (17:23)
[2017-03-09] MEDS: WARFARIN SOD 2.5 MG TAB PO SCH (17:23)
[2017-03-09] MEDS: PRAVASTATIN SOD 40 MG TAB PO SCH (19:48)
[2017-03-10] VITALS: BP 105/63; PULSE 79; RESP 18; TEMP 97.2; O2SAT 96
[2017-03-10] MEDS: RESP: ALBUTEROL 2.5 MG/IPRATROPIUM 0.5 MG NEB (SCH) NEB ×3 (03:56→11:16)
[2017-03-10 04:28] VITALS: BP 135/80; PULSE 80; RESP 18; TEMP 98.7; O2SAT 100
[2017-03-10 05:28] LABS: INTERNATIONAL NORMALIZED RATIO 1.7 RATIO; PROTHROMBIN TIME - PATIENT 18.8 SEC (9.8-11.6)
[2017-03-10] MEDS: INSULIN NovoLIN REGULAR SUPPLEMENTAL SCALE SQ SCH ×2 (05:37→11:00)
[2017-03-10 05:41] LABS: BICARBONATE 28.6 MEQ/L (21.0-32.0); MAGNESIUM 2.3 MG/DL (1.5-2.5); POTASSIUM 3.6 MEQ/L (3.5-5.1)
[2017-03-10 08:00] VITALS: BP 121/83; PULSE 77; RESP 20; TEMP 96.1; O2SAT 95
[2017-03-10] MEDS: ESCITALOPRAM OXALATE 10 MG TAB PO SCH (09:52)
[2017-03-10] MEDS: CARVEDILOL 12.5 MG TAB PO SCH (09:52)
[2017-03-10] MEDS: busPIRone HCL 10 MG TAB PO SCH (09:52)
[2017-03-10] MEDS: BUMETANIDE INJ 1 MG/4 ML VIAL IV PUSH SCH (09:52)
[2017-03-10] MEDS: CEFUROXIME AXETIL 500 MG TAB PO SCH (09:52)
[2017-03-10] MEDS: LISINOPRIL 20 MG TAB PO SCH (09:52)
[2017-03-10] MEDS: LORazepam 0.5 MG TAB PO SCH (09:52)
[2017-03-10] MEDS: GABAPENTIN 300 MG CAP PO SCH ×2 (09:52→12:16)
[2017-03-10] MEDS: SODIUM CHLORIDE 0.9% FLUSH 10 ML FLUSH IV FLUSH SCH (09:53)
[2017-03-10] MEDS: predniSONE 20 MG TAB PO SCH (09:53)
--- NOTE | 2017-03-10 10:28 | HHI.PR ---
Subjective Subjective Remarks c/o being thirsty no cough no cp no sob no fever eating okay no n/v Review of Systems Constitutional Constitutional Remarks 12 point ROS completed, negative except as noted above, unreliable Vitals/Results Intake & Output 03/09/17 03/09/17 03/10/17 15:00 23:00 07:00 Intake Total 1400 ml 180 ml 180 ml Output Total 950 ml 1000 ml 680 ml Balance 450 ml -820 ml -500 ml Intake Oral 1400 ml 180 ml 180 ml Output Urine Total 950 ml 1000 ml 680 ml # Voids 1 # Bowel Movements 0 1 0 Vital Signs Vital Signs Date Time Temp Pulse Resp B/P Pulse Ox O2 Delivery O2 Flow Rate FiO2 03/10/17 08:00 96.1 77 20 121/83 95 03/10/17 04:28 98.7 80 18 135/80 100 03/10/17 00:00 97.2 79 18 105/63 96 03/09/17 23:55 96 Nasal Cannula 5.00 03/09/17 20:12 99 Nasal Cannula 6.00 03/09/17 20:05 78 03/09/17 20:00 96.6 88 18 127/70 100 03/09/17 19:40 Nasal Cannula 6.00 03/09/17 17:10 98.1 95 28 127/92 99 03/09/17 16:28 99 Nasal Cannula 6.00 03/09/17 16:00 97.3 88 27 125/86 92 03/09/17 12:00 96.1 86 16 106/66 97 CBC/BMP: 03/07/17 0634 03/10/17 0434 Lab Results Laboratory Tests Test 03/10/17 04:34 Prothrombin Time 18.8 SEC Prothromb Time International 1.7 RATIO Ratio Sodium Level 143 MEQ/L Potassium Level 3.6 MEQ/L Chloride Level 106 MEQ/L Carbon Dioxide Level 28.6 MEQ/L Anion Gap 8 MEQ/L Blood Urea Nitrogen 36 MG/DL Creatinine 1.06 MG/DL Estimat Glomerular Filtration 91 ML/MIN Rate Random Glucose 118 MG/DL Calcium Level 8.5 MG/DL Magnesium Level 2.3 MG/DL Physical Exam General General Appearance: Well Developed, No Acute Distress, Comfortable, Obese Eyes Eye Exam: Pupils Equal, Sclera White, Extraocular Movement Intact Ears & Nose Ears & Nose Exam: Nasal Mucosa [place] Throat Throat Exam: Oral Mucosa [place] & Moist Neck Neck Exam: Neck Supple, Trachea Midline Pulmonary Resp Exam: Breath Sounds Equal, Decreased Bases Cardiology CV Exam: Regular, Normal Sinus Rhythm Gastrointestinal/Abdomen GI Exam: Soft, Non-Tender, Bowel Sounds Present, Non-Distended Musculoskeletal MS Exam: Atrophy, Unable to Ambulate Integumentary Skin Exam: Warm, Dry Extremeties Extremities Exam: Pedal Pulses Palpable, Moderate Edema, Pitting Edema Neurologic Neuro Exam: Alert, Awake, Oriented Neuro Remarks speech dysarthric left sided hemiplegia Psychiatric Psych Exam: Appropriate Responses VTE Prophylaxis VTE Prophylaxis Meds: Coumadin PUD Prophylasis PUD Prophylaxis: Protonix Assessment/Plan Problem List: (1) CHF (congestive heart failure) (2) History of CVA with residual deficit (3) ICD (implantable cardioverter-defibrillator) in place (4) Anemia (5) Hypertension (6) Cardiomyopathy (7) Pneumonia Assessment/Plan improved, diuresing well continue to PO Bumex and K replacement at SNF appreciate card input continue BB and ROMI continue Coumadin, INR 1.7 card input appreciated/ no further cardiac intervention continue supplemental oxygen aerosol tx blood c/s neg po abx PO steroids and taper off Diabetic diet Insulin Accu-Cheks before meals and at bedtime with insulin therapy as needed continue lexapro/buspar pepcid for GI prophylaxis coumadin for DVT prophylaxis PT eval ss for dc,planning /d/c to [facility] when arrangements are made Overall improved, stable for dc Discharge to SNF f/u PCP, card diet-heart healthy, diabetic act. as tolerated D/W RN D/W Dr. Mari D/W pt This patient was seen by myself and Dr. Mari, this note is written on his behalf. Discharge Minutes: 45 Problem Qualifiers (1) CHF (congestive heart failure): Qualified Code: I50.23 - Acute on chronic systolic congestive heart failure (2) Hypertension: Qualified Code: I10 - Essential hypertension (3) Cardiomyopathy: Qualified Code: I42.9 - Cardiomyopathy, unspecified type (4) Pneumonia: Qualified Code: J18.9 - Pneumonia of both lungs due to infectious organism, unspecified part of lung Tata Villalobos Mar 10, 2017 10:28
[2017-03-10] MEDS ORDERED: LISI-515 PO (10:33)
[2017-03-10] MEDS ORDERED: COUM3TAB PO (10:33)
[2017-03-10] MEDS ORDERED: CEFU1TAB20 PO (10:33)
[2017-03-10] MEDS ORDERED: BUME1TAB PO (10:34)
[2017-03-10] MEDS ORDERED: POTA-163 PO (10:36)
--- NOTE | 2017-03-10 10:36 | HHI.DCPOC ---
Discharge Care Plan Diagnosis: (1) CHF (congestive heart failure) (2) Cardiomyopathy (3) Hypertension Your Health Problems Are: Chest Pain Cough Fluid/Lung Overload Shortness of Breath Goals to Promote Your Health * To prevent worsening of your condition and complications * To maintain your health at the optimal level Directions to Meet Your Goals Take your medications as prescribed Follow your dietary instruction Follow activity as directed Keep your appointments as scheduled Take your immunizations and boosters as scheduled If your symptoms worsen call your PCP, if no PCP go to Urgent Care Center or Emergency Room Smoking is Dangerous to Your Health. Avoid second hand smoke Call the 24-hour hour crisis hotline for domestic abuse at [facility]al[facility]. [facility] Mar 10, 2017 10:36
--- NOTE | 2017-03-10 10:37 | HHI.DS ---
Discharge Summary Admission Date Mar 04, 2017 at 16:53 Discharge Date: Mar 10, 2017 Admitting Diagnosis Sepsis, Multilobar pneumonia (1) CHF (congestive heart failure) (2) Pneumonia (3) Cardiomyopathy (4) Hypertension (5) Insulin dependent diabetes mellitus (6) DM type 2 (diabetes mellitus, type 2) (7) Neuropathic pain (8) History of CVA with residual deficit CBC/BMP: 03/07/17 0634 03/10/17 0434 Significant Findings Laboratory Tests Test 03/08/17 03/09/17 03/10/17 05:55 04:26 04:34 Prothrombin Time 29.9 SEC 23.3 SEC 18.8 SEC (9.8-11.6) (9.8-11.6) (9.8-11.6) Sodium Level 146 MEQ/L (136-145) Chloride Level 111 MEQ/L (98-107) Blood Urea Nitrogen 36 MG/DL (7-18) 36 MG/DL (7-18) Estimat Glomerular Filtration 86 ML/MIN (>89) Rate Random Glucose 175 MG/DL 118 MG/DL (74-106) (74-106) B-Type Natriuretic Peptide 769 PG/ML (0-100) Imaging Last Impressions Chest X-Ray 03/06/17 0000 Signed Impressions: Service Date/Time: February 14:14 - CONCLUSION: 1. Bilateral effusions and cardiomegaly most consistent with congestive failure. Unchanged from previous. Kalyan Borja MD Hospital Course This is an unfortunate 44-year-old male who has a history of right MCA stroke with left-sided hemiplegia, cardiomyopathy has AICD, non-STEMI, hypertension, hyperlipidemia, CHF, insulin-dependent diabetes. Patient has been residing at a snf facility since having stroke. Patient presented to the emergency room for evaluation of cough and shortness of breath. Patient actually call 911 to be brought to the hospital. He was initially angry because for the last couple nights he have requested his bed close to the AC unit so than he breath better. Apparently the administration at the facility made put the bed back to where it normally is and he became very angry and called 911. Patient endorses that for the last 2 weeks he's had a respiratory infection with a dry cough, he's unable to bring up any secretions. He's had some nasal congestion. He's noted increased shortness of breath, no chest pain. He is not on oxygen. but was given nebulizer treatments. Review from snf records shows that the patient was started on Bumex 1 mg orally daily and Levaquin 500 mg orally on February 27. Patient denies any fever, no chills. Denies any abdominal discomfort, no diarrhea. Appetite has been poor, he hasn't been eating very well. Patient was evaluated in the emergency room, he was noted with a temperature of 99, pulse rate 105, respiratory rate 22, blood pressure 145/104, sats 97% on 2 L. CBC was significant for WBC of 11.7. BMP remarkable for hypernatremia, sodium 147. Random glucose 139. BNP 1429. Chest x-ray significant for patchy partially consolidated infiltrates in both mid and lower lobes left greater than right. Cultures were obtained, patient was started on empiric antibiotics. (1) CHF (congestive heart failure) (2) History of CVA with residual deficit (3) ICD (implantable cardioverter-defibrillator) in place (4) Anemia (5) Hypertension (6) Cardiomyopathy (7) Pneumonia During the course of the hospitalization the following took place: Patient was admitted, IV fluids were discontinued due to CHF exacerbation. Patient appeared to have a combination of CHF and pneumonia. Treated with antibiotics, cultures were followed and remained negative. Patient was put on IV diuretics and potassium replacement Cardiology was consulted for evaluation, recommendations were provided. Patient was continued on beta blockers and angel inhibitors. No further recommendations per cardiology. Symptoms of CHF improved, patient was diuresing well. A shunt also require fluid restriction Patient was continued on Coumadin, INR was followed. Pharmacy was consulted for dosing Patient was prior supplemental oxygen, DuoNeb's were also ordered. Patient was initially put on IV steroids and then was changed to oral. As patient's symptoms improve, antibiotics were changed to oral route. Patient tolerated well. No diarrhea. No fever. Was put on Diabetic diet with fluid restriction Ordered Accu-Cheks before meals and at bedtime with insulin therapy as needed Continued lexapro/buspar Home medications reviewed and initiated as indicated He was treated medically for the rest of his other medical problems such as peripheral neuropathy, hypertension, hyperlipidemia. pepcid for GI prophylaxis coumadin for DVT prophylaxis PT eval done ss for dc,planning /d/c to [place] Overall improved, stable for dc Patient with poor prognosis due to multiple comorbidities, likely to be readmitted to hospital. Discharged to SNF f/u PCP, card diet-heart healthy, diabetic act. as tolerated Pt Condition on Discharge: Stable Discharge Disposition: Discharge to SNF Discharge Instructions DIET: Follow Instructions for: Heart Healthy Diet, Diabetic Diet Activities you can perform: Weight Bearing as Darius Follow up Referrals: Cardiology with Leonel Ridley MD PCP Follow-up New Medications: Bumetanide (Bumetanide) 1 Mg Tab 1 MG PO BID #60 Ref 0 TAB Potassium Chloride ER (Potassium Chloride ER) 20 Meq Tab 20 MEQ PO DAILY Electrolyte Replacement #30 Ref 0 TAB Cefuroxime (Cefuroxime) 500 Mg Tab 500 MG PO Q12HR Infection #10 Ref 0 TAB Lisinopril (Lisinopril) 20 Mg Tab 20 MG PO DAILY Blood Pressure Management #30 TAB Lorazepam (Ativan) 0.5 Mg Tab 0.5 MG PO BID anxiety #20 TAB Prednisone (Prednisone) 20 Mg Tab 10 MG PO DAILY Broncospasm #5 TAB Warfarin (Coumadin) 3 Mg Tab 3 MG PO DAILY@16 Stroke Prevention #30 TAB Continued Medications: Acetaminophen (Mapap) 325 Mg Tab 650 MG PO Q4HR PRN PAIN/DISCOMFORT/TEMP>101 Ref 0 TAB Ohszitrw-Utelvvfet-Iuflwwxjlcw Liq (Wbwbjzzh-Wtbeshpwp-Psxrvkkjqrl Liq) 200-200- 20 Mg/5 Ml Susp 30 ML PO Q4HR Take between meals or as directed. Shake well. Do not exceed 120 mL/24 hrs. PRN IN Ref 0 ML Benzonatate (Tessalon Perles) 100 Mg Cap 100 MG PO TID PRN COUGH Ref 0 CAP Bisacodyl Supp (Dulcolax Supp) 10 Mg Supp 10 MG RECTAL DAILY PRN IF NO BM FROM MOM #12 Ref 0 SUPP Bumetanide (Bumetanide) 1 Mg Tab 1 MG PO DAILY #30 Ref 0 TAB Buspirone (Buspirone) 10 Mg Tab 10 MG PO DAILY Anxiety Ref 0 TAB Carvedilol (Carvedilol) 12.5 Mg Tab 12.5 MG PO BID HTN #60 Ref 0 TAB Escitalopram (Lexapro) 10 Mg Tab 10 MG PO DAILY Depression Control #30 Ref 0 TAB Fluoxetine (Fluoxetine) 20 Mg Capsule 20 MG PO DAILY Depression Control #30 Ref 0 CAP Gabapentin (Gabapentin) 300 Mg Cap 300 MG PO TID Pain Management #90 Ref 0 CAP Ipratropium-Albuterol Neb (Duoneb) 0.5-2.5 Mg/3 Ml Neb 1 NEBULE INH QID NEB PRN SHORTNESS OF BREATH #120 Ref 0 NEBULE Loperamide HCl (Sm Anti-Diarrheal) 1 Mg/5 Ml Liq 2 MG PO DIRECTED Take 4 mg after 1st loose stool, then take 2 mg after each subsequent stool. Max 16 mg/day. PRN DIARRHEA Magnesium Hydroxide Liq (Milk of Magnesia Liq) 400 Mg/5 Ml Susp 30 ML PO Q4HR PRN CONSTIPATION #1 Ref 0 BOTTLE Metformin (Metformin) 500 Mg Tab 500 MG PO BIDPC With meals NIDDM #60 Ref 0 TAB Pravastatin (Pravastatin) 40 Mg Tab 40 MG PO HS Cholesterol Management #30 Ref 0 TAB Sodium Phosphates (Fleet Enema Six Pack 7-19 gm/118Ml) 1 Allyson Allyson 118 ML TN DAILY PRN IF NO BM FROM SUPP Discontinued Medications: Celecoxib (Celebrex) 200 Mg Cap 200 MG PO DAILY Pain Management Ref 0 CAP Levofloxacin (Levaquin) 500 Mg Tablet 500 MG PO DAILY Lisinopril (Lisinopril) 5 Mg Tab 5 MG PO DAILY HTN #30 Ref 0 TAB Loperamide (Anti-Diarrheal) 2 Mg Tab 2 MG PO DIRECTED Take 4 mg after 1st loose stool, then take 2 mg after each subsequent stool. Max 16 mg/day. PRN DIARRHEA Ref 0 TAB Lorazepam (Ativan) 0.5 Mg Tab 0.5 MG PO BID ANXIETY/AGITATION Ref 0 TAB Methylprednisolone Dosepak (Medrol Dosepak) 4 Mg Dspk 4 MG PO DIRECTED Per Pharmacist direction #1 Ref 0 DSPK Warfarin (Coumadin) 5 Mg Tab 5 MG PO MoFr @ 1600 Blood Clot Prevention #30 Ref 0 TAB Warfarin (Warfarin) 2 Mg Tab 2 MG PO MoFr@1600 Blood Clot Prevention #30 Ref 0 TAB Warfarin (Warfarin) 2.5 Mg Tab 2.5 MG PO SuTuWeThSa @ 1600 Blood Clot Prevention #30 Ref 0 TAB Warfarin (Warfarin) 1 Mg Tab 1 MG PO SuTuWeThSa @ 1600 Blood Clot Prevention #30 Ref 0 TAB Tata Villalobos Mar 10, 2017 10:37
[2017-03-10] MEDS ORDERED: PRED20 PO (11:40)
[2017-03-10] MEDS ORDERED: LORA-392 PO (11:40)
[2017-03-10 12:00] VITALS: BP 118/81; PULSE 76; RESP 20; TEMP 96.4; O2SAT 98
[2017-03-10 13:05] VITALS: O2SAT 98
[2017-03-10] MEDS ORDERED: WARFARIN SOD 3 MG TAB PO SCH (16:00)
--- NOTE | 2017-03-10 16:10 | PD.CARD.PN ---
Subjective Subjective Remarks No CP or SOB, feels better Objective Vital Signs / I&O Vital Signs Date Time Temp Pulse Resp B/P Pulse Ox O2 Delivery O2 Flow Rate FiO2 03/10/17 13:05 98 Nasal Cannula 5.00 03/10/17 12:00 96.4 76 20 118/81 98 03/10/17 08:00 96.1 77 20 121/83 95 03/10/17 04:28 98.7 80 18 135/80 100 03/10/17 00:00 97.2 79 18 105/63 96 03/09/17 23:55 96 Nasal Cannula 5.00 03/09/17 20:12 99 Nasal Cannula 6.00 03/09/17 20:05 78 03/09/17 20:00 96.6 88 18 127/70 100 03/09/17 19:40 Nasal Cannula 6.00 03/09/17 17:10 98.1 95 28 127/92 99 03/09/17 16:28 99 Nasal Cannula 6.00 I/O 03/09/17 03/09/17 03/09/17 03/10/17 03/10/17 03/10/17 07:00 15:00 23:00 07:00 15:00 23:00 Intake Total 180 ml 1400 ml 180 ml 180 ml Output Total 700 ml 950 ml 1000 ml 680 ml Balance -520 ml 450 ml -820 ml -500 ml Intake Oral 180 ml 1400 ml 180 ml 180 ml Output Urine Total 700 ml 950 ml 1000 ml 680 ml # Voids 1 # Bowel Movements 0 1 0 Physical Exam GENERAL: In NAD SKIN: Warm and dry. HEAD: Normocephalic. EYES: No scleral icterus. No injection or drainage. NECK: Supple, trachea midline. No JVD or lymphadenopathy. CARDIOVASCULAR: Regular rate and rhythm without murmurs, gallops, or rubs. RESPIRATORY: Breath sounds equal bilaterally. No accessory muscle use. GASTROINTESTINAL: Abdomen soft, non-tender, nondistended, very obese. MUSCULOSKELETAL: No cyanosis, or edema. Speech difficulty Laboratory Laboratory Tests Test 03/10/17 04:34 Prothrombin Time 18.8 SEC Prothromb Time International 1.7 RATIO Ratio Sodium Level 143 MEQ/L Potassium Level 3.6 MEQ/L Chloride Level 106 MEQ/L Carbon Dioxide Level 28.6 MEQ/L Anion Gap 8 MEQ/L Blood Urea Nitrogen 36 MG/DL Creatinine 1.06 MG/DL Estimat Glomerular Filtration 91 ML/MIN Rate Random Glucose 118 MG/DL Calcium Level 8.5 MG/DL Magnesium Level 2.3 MG/DL Imaging Last Impressions Chest X-Ray 03/06/17 0000 Signed Impressions: Service Date/Time: February 14:14 - CONCLUSION: 1. Bilateral effusions and cardiomegaly most consistent with congestive failure. Unchanged from previous. Kalyan Borja MD Assessment and Plan Problem List: (1) CHF (congestive heart failure) (2) Cardiomyopathy (3) Pneumonia (4) Morbid obesity with BMI of 40.0-44.9, adult (5) H/O: CVA (cerebrovascular accident) (6) ICD (implantable cardioverter-defibrillator) in place Assessment and Plan No new cardiac issues. SOB improved. Continue tx for CHF including diuresis. Continue ROMI-I and beta chiquis, titrate if necessary. OK to discharge from cardiac standpoint. Problem Qualifiers (1) CHF (congestive heart failure): Qualified Code: I50.23 - Acute on chronic systolic congestive heart failure (2) Cardiomyopathy: Qualified Code: I42.9 - Cardiomyopathy, unspecified type (3) Pneumonia: Qualified Code: J18.9 - Pneumonia of both lungs due to infectious organism, unspecified part of lung Leonel Ridley MD Mar 10, 2017 16:10
== END 2017-03-10 15:07 | DRG 291 ==
LOC: NEPE 14:24 → NEDA 16:53 → N07B 18:20
PROVIDERS: ADMIT Internal Medicine; ATTEND Internal Medicine
DX: I11.0 Hypertensive heart disease with heart failure (principal); J18.9 Pneumonia, unspecified organism; N17.9 Acute kidney failure, unspecified; E87.0 Hyperosmolality and hypernatremia; Z68.43 Body mass index [BMI] 50.0-59.9, adult; I69.354 Hemiplegia and hemiparesis following cerebral infarction affecting left non-dominant side; I42.0 Dilated cardiomyopathy; E11.9 Type 2 diabetes mellitus without complications; D63.8 Anemia in other chronic diseases classified elsewhere; I50.23 Acute on chronic systolic (congestive) heart failure; G62.9 Polyneuropathy, unspecified; E78.5 Hyperlipidemia, unspecified; G47.30 Sleep apnea, unspecified; I25.2 Old myocardial infarction; I69.322 Dysarthria following cerebral infarction; I69.392 Facial weakness following cerebral infarction; E66.01 Morbid (severe) obesity due to excess calories; Z74.01 Bed confinement status; Z79.01 Long term (current) use of anticoagulants; Z79.4 Long term (current) use of insulin; Z95.810 Presence of automatic (implantable) cardiac defibrillator
CPT/HCPCS: 71010; 71020; 80048; 80053; 80202; 81001; 82948; 83605; 83735; 83880; 84484; 85025; 85027; 85610; 85730; 87040; 93005; 93306; 94150; 94640; 94664; 96365; 96368; J0456; J0692; J2543; J3370; J7030; J7040; J7050; J7512

== ENCOUNTER 2017-08-20 13:30 | Inpatient (IN) | payer MEDICAID ==
[~2017-08-20] VITALS: Ht 172.7 cm; Wt 151.2 kg
[~2017-08-20 13:30] MED LIST changes: -3-IN3MIS; -ACCUTES; +ALUMSUS2 PO; -BACL10TA PO; +BENZ100 PO; -BLOO1KIT65; +BUSP10TA PO; +CARV12.52 PO; -CARV6.25 PO; +CEFU1TAB20 PO; +COUM3TAB PO; -DOXY100T PO; +DULC10SU3 RECTAL; -ECASA PO; +FLEEENE PR; +FLUO20CA12 PO; -GABA300C3 PO; +GABA300C5 PO; -GABA600T PO; -HOSPITAL BED SEMI; +IPRASOL INH; -LANC1MIS TOPICAL; +LISI-515 PO; -LISI20 PO; +LORA-392 PO; +MAPA325T PO; -METF500 PO; +METF500T PO; +MILKSUS PO; -PERI8.6T PO; +POTA-163 PO; -PRAV40 PO; +PRAV40TA2 PO; +PRED20 PO; -PROT40TA PO; +SM A PO; -THERM PO; -WHEELCHAIR RENTAL RA; -[UNRECOGNIZED DRUG - CODE] TOPICAL; -[UNRECOGNIZED DRUG - SUPPLY]
[2017-08-20 13:40] VITALS: BP 93/52; PULSE 88; RESP 20; TEMP 99.5; O2SAT 100
[2017-08-20] MEDS ORDERED: WARF-23 PO (14:28)
[2017-08-20] MEDS ORDERED: MULT1TAB46 (14:28)
[2017-08-20] MEDS ORDERED: SODIUM CHLORIDE 0.9% FLUSH 10 ML FLUSH IV FLUSH PRN ×3 (15:00→19:30)
[2017-08-20] MEDS ORDERED: SODIUM CHLOR 0.9% 1000 ML INJ 1,000 ML IV ONE ×2 (15:00→17:00)
--- NOTE | 2017-08-20 15:57 | PD ---
HPI Chief Complaint: Abnormal Results Time Seen by Provider: 14:15 Travel History International Travel<30 days: No Contact w/Intl Traveler<30days: No Traveled to known affect area: No History of Present Illness HPI 47 YO M with PMH of CVA with left sided deficit presents to the ED from his [facility] for evaluation of elevated blood sugar. Patient takes metformin daily. On presentation he endorses decreased appetite and inability to taste his food times a few weeks. He denies fevers, chills, nausea, vomiting, abdominal pain, dysuria, constipation, diarrhea, back pain. He is followed by Dr. Darrell Cain. [facility] Past Medical History Arthritis: No Asthma: No Autoimmune Disease: No Blood Disorders: No Anxiety: No Depression: No Heart Rhythm Problems: Yes Cancer: No Cardiovascular Problems: Yes High Cholesterol: Yes Chest Pain: No Congestive Heart Failure: Yes COPD: No Cerebrovascular Accident: Yes (2014) Diabetes: Yes Patient Takes Glucophage: Yes Diminished Hearing: No Endocrine: Yes GERD: No Glaucoma: No Genitourinary: No Headaches: No Hepatitis: No Hiatal Hernia: No Hypertension: Yes Immune Disorder: No Implanted Vascular Access Dvce: Yes Kidney Stones: No Musculoskeletal: No Neurologic: Yes Psychiatric: No Reproductive: No Respiratory: Yes Migraines: No Myocardial Infarction: No Pneumonia: Yes Radiation Therapy: No Renal Failure: No Seizures: No Sickle Cell Disease: No Sleep Apnea: Yes Thyroid Disease: No Ulcer: No Past Surgical History Abdominal Surgery: Yes AICD: Yes Appendectomy: No Arteriovenous Shunt: No Cardiac Surgery: Yes (pace maker) Cholecystectomy: No Ear Surgery: No Endocrine Surgery: No Eye Surgery: No Genitourinary Surgery: Yes (feeding tube) Gynecologic Surgery: No Insulin Pump: No Joint Replacement: No Oral Surgery: No Pacemaker: Yes Thoracic Surgery: Yes Other Surgery: Yes Social History Alcohol Use: No Tobacco Use: No Substance Use: No Allergies-Medications (Allergen,Severity, Reaction): Coded Allergies: *MDRO Multi-Drug Resistant Organism (Verified Adverse Reaction, Unknown, MRSA, 08/20/17) MRSA (blood & wound) - 08/01/10 Reported Meds & Prescriptions Reported Meds & Active Scripts Active Ativan (Lorazepam) 0.5 Mg Tab 0.5 Mg PO BID Potassium Chloride ER (Potassium Chloride) 20 Meq Tab 20 Meq PO DAILY Bumetanide 1 Mg Tab 1 Mg PO BID Lisinopril 20 Mg Tab 20 Mg PO DAILY Reported Multi Vitamin Daily (Multiple Vitamin) 1 Tab Tab Warfarin 5 Mg Tab 5 Mg PO DAILY Milk of Magnesia Liq (Magnesium Hydroxide) 400 Mg/5 Ml Susp 30 Ml PO Q4HR PRN Sm Anti-Diarrheal (Loperamide HCl) 1 Mg/5 Ml Liq 2 Mg PO DIRECTED PRN Take 4 mg after 1st loose stool, then take 2 mg after each subsequent stool. Max 16 mg/day. Dulcolax Supp (Bisacodyl) 10 Mg Supp 10 Mg RECTAL DAILY PRN Mapap (Acetaminophen) 325 Mg Tab 650 Mg PO Q4HR PRN Flrgnavh-Apehppbpn-Shoqgsbwjws Liq 200-200-20 Mg/5 Ml Susp 30 Ml PO Q4HR PRN Take between meals or as directed. Shake well. Do not exceed 120 mL/24 hrs. Pravastatin 40 Mg Tab 40 Mg PO HS Metformin (Metformin HCl) 500 Mg Tab 500 Mg PO BIDPC With meals Gabapentin 300 Mg Cap 300 Mg PO TID Lexapro (Escitalopram Oxalate) 10 Mg Tab 10 Mg PO DAILY Carvedilol 12.5 Mg Tab 12.5 Mg PO BID Buspirone (Buspirone HCl) 10 Mg Tab 10 Mg PO DAILY Review of Systems Except as stated in HPI: all other systems reviewed are Neg Physical Exam Narrative GENERAL: Obese black male in no acute distress. SKIN: Focused skin assessment warm/dry. HEAD: Normocephalic. EYES: No scleral icterus. No injection or drainage. NECK: Supple, trachea midline. No JVD or lymphadenopathy. CARDIOVASCULAR: Regular rate and rhythm without murmurs, gallops, or rubs. RESPIRATORY: Breath sounds clear and equal bilaterally. No accessory muscle use. GASTROINTESTINAL: Abdomen soft, non-tender, nondistended. MUSCULOSKELETAL: No cyanosis, or edema. Left-sided paralysis. BACK: Nontender without obvious deformity. No CVA tenderness. Data Data Last Documented VS Vital Signs Date Time Temp Pulse Resp B/P (MAP) Pulse Ox O2 Delivery O2 Flow Rate FiO2 08/20/17 17:01 75 22 127/57 (80) Room Air 08/20/17 13:40 99.5 100 Orders Orders Complete Blood Count With Diff (08/20/17 14:48) Comprehensive Metabolic Panel (08/20/17 14:48) Lipase (08/20/17 14:48) Lactic Acid (08/20/17 14:48) Urinalysis - C+S If Indicated (08/20/17 14:48) Iv Access Insert/Monitor (08/20/17 14:48) Ecg Monitoring (08/20/17 14:48) Oximetry (08/20/17 14:48) NPO (08/20/17 14:48) Sodium Chloride 0.9% Flush (Ns Flush) (08/20/17 15:00) Cath For Specimen (08/20/17 14:48) Sodium Chlor 0.9% 1000 Ml Inj (Ns 1000 M (08/20/17 15:00) Beta Hydroxybutyrate (Acetone) (08/20/17 14:48) Vascular Access Team Consult/P PRN (08/20/17 15:52) Vascular Poc Ultrasound (08/20/17 ) Insulin Human Regular Inj (Novolin R Inj (08/20/17 17:00) Sodium Chlor 0.9% 1000 Ml Inj (Ns 1000 M (08/20/17 17:00) Admit Order (Ed Use Only) (08/20/17 17:13) Labs Laboratory Tests Test 08/20/17 15:30 08/20/17 16:53 White Blood Count 8.0 TH/MM3 Red Blood Count 5.29 MIL/MM3 Hemoglobin 15.9 GM/DL Hematocrit 50.4 % Mean Corpuscular Volume 95.3 FL Mean Corpuscular Hemoglobin 30.2 PG Mean Corpuscular Hemoglobin Concent 31.7 % Red Cell Distribution Width 14.1 % Platelet Count 243 TH/MM3 Mean Platelet Volume 10.1 FL Neutrophils (%) (Auto) 63.2 % Lymphocytes (%) (Auto) 25.1 % Monocytes (%) (Auto) 8.6 % Eosinophils (%) (Auto) 2.4 % Basophils (%) (Auto) 0.7 % Neutrophils # (Auto) 5.0 TH/MM3 Lymphocytes # (Auto) 2.0 TH/MM3 Monocytes # (Auto) 0.7 TH/MM3 Eosinophils # (Auto) 0.2 TH/MM3 Basophils # (Auto) 0.1 TH/MM3 CBC Comment DIFF FINAL Differential Comment Urine Color LIGHT-YELLOW Urine Turbidity CLEAR Urine pH 5.0 Urine Specific [place] 1.013 Urine Protein NEG mg/dL Urine Glucose (UA) 1000 mg/dL Urine Ketones NEG mg/dL Urine Occult Blood TRACE Urine Nitrite NEG Urine Bilirubin NEG Urine Urobilinogen LESS THAN 2.0 MG/DL Urine Leukocyte Esterase NEG Urine RBC LESS THAN 1 /hpf Urine WBC LESS THAN 1 /hpf Microscopic Urinalysis Comment CULT NOT INDICATED Blood Urea Nitrogen 58 MG/DL Creatinine 1.99 MG/DL Random Glucose 625 MG/DL Total Protein 8.3 GM/DL Albumin 4.0 GM/DL Calcium Level 9.3 MG/DL Alkaline Phosphatase 166 U/L Aspartate Amino Transf (AST/SGOT) 13 U/L Alanine Aminotransferase (ALT/SGPT) 30 U/L Total Bilirubin 0.3 MG/DL Sodium Level 140 MEQ/L Potassium Level 4.4 MEQ/L Chloride Level 103 MEQ/L Carbon Dioxide Level 28.6 MEQ/L Anion Gap 8 MEQ/L Estimat Glomerular Filtration Rate 44 ML/MIN Lipase 421 U/L B-Hydroxybutyrate 0.25 MMOL/L Lactic Acid Level 2.0 mmol/L MDM Medical Decision Making Medical Screen Exam Complete: Yes Emergency Medical Condition: Yes Differential Diagnosis Hyperglycemia versus HHS versus DKA versus other Narrative Course 47 YO M with PMH of DM, HTN, CVA with left sided deficit presents to the ED from his [facility] for evaluation of elevated blood sugar. Patient takes metformin daily. On presentation he complains of decreased appetite and inability to taste his food x a few weeks. He denies fevers, chills, nausea, vomiting, abdominal pain, dysuria, constipation, diarrhea, back pain. He is followed by Dr. Darrell Cain. BP 93/52 on arrival. Physical exam reveals an obese black male in no acute distress. Left hemiparalysis. Chest CTAB. Abdomen soft and nontender. Urine and stool present in the diaper. We had some difficulties inserting an IV. Vascular access team was consulted. 1L NS bolus ordered. CBC: NO leukocytosis or anemia CMP: BUN 58, creatinine 1.99. Glucose 625 UA: Glucose urea, no culture indicated Beta hydroxybutyrate: 0.25 Patient was administered 10 units of regular insulin IV. Second liter of normal saline was ordered. Baseline creatinine 0.99. This is hyperglycemia with acute kidney injury. Spoke with Dr. Chopra who agrees to accept the patient the medicine service. See medicine notes for discharge. Renetta Nava Aug 20, 2017 15:57
[2017-08-20 16:11] LABS: BLOOD, URINE TRACE (NEG); COMMENT (UR) CULT NOT INDICATED; CULTURE IF INDICATED CULT NOT INDICATED; GLUCOSE,URINE 1000 mg/dL (NEG); KETONE, URINE NEG (NEG); NITRITE,URINE NEG (NEG); URINE COLOR LIGHT-YELLOW (YELLW/STRAW)
[2017-08-20 16:17] LABS: BASOPHIL # 0.1 TH/MM3 (0-0.2); BASOPHIL % 0.7 % (0.0-2.0); EOSINOPHIL # 0.2 TH/MM3 (0-0.4); EOSINOPHIL % 2.4 % (0.0-4.0); HEMATOCRIT 50.4 % (39.0-51.0); HEMO FLAGS DIFF FINAL; LYMPH % 25.1 % (9.0-44.0); MEAN CELL VOLUME 95.3 FL (80.0-100.0); MEAN CORPUSCULAR HEMOGLOBIN 30.2 PG (27.0-34.0); MEAN CORPUSCULAR HGB CONC 31.7 % (32.0-36.0); MONO % 8.6 % (0.0-8.0); NEUT % 63.2 % (16.0-70.0); PLATELET COUNT 243 TH/MM3 (150-450); RED BLOOD COUNT 5.29 MIL/MM3 (4.50-5.90); RED CELL DISTRIBUTION WIDTH 14.1 % (11.6-17.2)
[2017-08-20 16:26] LABS: ANION GAP 8 MEQ/L (5-15)
[2017-08-20 16:48] LABS: ALKALINE PHOSPHATASE 166 U/L (45-117); ALT (GPT) 30 U/L (12-78); AST (GOT) 13 U/L (15-37); BETA-HYDROXYBUTYRATE 0.25 MMOL/L (0.00-0.39); BICARBONATE 28.6 MEQ/L (21.0-32.0); CHLORIDE 103 MEQ/L (98-107); GLOMERULAR FILTRATION RATE 44 ML/MIN (>89); POTASSIUM 4.4 MEQ/L (3.5-5.1); SODIUM (NA) 140 MEQ/L (136-145); TOTAL BILIRUBIN ADULT 0.3 MG/DL (0.2-1.0)
[2017-08-20 16:54] LABS: BLOOD UREA NITROGEN 58 MG/DL (7-18)
[2017-08-20] MEDS ORDERED: INSULIN HUMAN REGULAR 1,000 UNITS/10 ML VIAL IV PUSH ONE (17:00)
[2017-08-20 17:01] VITALS: BP 127/57; PULSE 75; RESP 22
[2017-08-20] MEDS ORDERED: NALOXONE HCL 0.4 MG/ML AMP IV PUSH PRN ×2 (17:15→19:30)
[2017-08-20] MEDS ORDERED: BISACODYL 10 MG SUPP RECTAL PRN (19:30)
[2017-08-20] MEDS ORDERED: MAGNESIUM HYDROXIDE SUSP 30 ML CUP PO PRN (19:30)
[2017-08-20] MEDS ORDERED: LACTULOSE SYRUP 20 GM/30 ML CUP PO PRN (19:30)
[2017-08-20] MEDS ORDERED: DEXTROSE 50% IN WATER 50 ML VIAL(D50) IV PUSH PRN (19:30)
[2017-08-20] MEDS ORDERED: ACETAMINOPHEN 325 MG TAB PO PRN (19:30)
[2017-08-20] MEDS ORDERED: GLUCAGON 1 MG/ML VIAL OTHER PRN (19:30)
[2017-08-20] MEDS ORDERED: HEPARIN SODIUM - SQ 10,000 UNITS/ML VIAL SQ SCH (19:30)
[2017-08-20] MEDS ORDERED: ONDANSETRON HCL 4 MG/2 ML VIAL IVP PRN (19:30)
[2017-08-20] MEDS ORDERED: SENNOSIDES 8.6 MG TAB PO PRN (19:30)
[2017-08-20] MEDS ORDERED: INSULIN HUMAN REGULAR 1,000 UNITS/10 ML VIAL SQ ONE (19:30)
--- NOTE | 2017-08-20 19:54 | HHI.HP ---
HPI Service [facility] Primary Care Physician Darrell Cain M.D. 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 The patient states he called 911 himself because the longterm "does not do anything for him." He takes metformin daily. Is not on insulin. He reports a dry mouth and decreased appetite for the past several weeks. He denies fever/chills. Denies nausea/vomiting. Denies shortness of breath/chest pain. Labs significant for a blood glucose of 625. Creatinine 1.99, baseline 1.0. Review of Systems Denies fever or chills Denies blurry vision, otorrhea, rhinorrhea Denies sore throat and cough No chest pain, palpitations, shortness of breath No abdominal pain Denies constipation/diarrhea/nausea/vomiting Left-sided residual weakness, at baseline No rashes Past Family Social History Past Medical History Diabetes Hypertension Cardiomyopathy Right MCA stroke Hyperlipidemia Peripheral neuropathy Obesity CHF Past Surgical History AICD placement PEG placement Reported Medications Reported Meds & Active Scripts Active Ativan (Lorazepam) 0.5 Mg Tab 0.5 Mg PO BID Potassium Chloride ER (Potassium Chloride) 20 Meq Tab 20 Meq PO DAILY Bumetanide 1 Mg Tab 1 Mg PO BID Lisinopril 20 Mg Tab 20 Mg PO DAILY Reported Multi Vitamin Daily (Multiple Vitamin) 1 Tab Tab Warfarin 5 Mg Tab 5 Mg PO DAILY Milk of Magnesia Liq (Magnesium Hydroxide) 400 Mg/5 Ml Susp 30 Ml PO Q4HR PRN Sm Anti-Diarrheal (Loperamide HCl) 1 Mg/5 Ml Liq 2 Mg PO DIRECTED PRN Take 4 mg after 1st loose stool, then take 2 mg after each subsequent stool. Max 16 mg/day. Dulcolax Supp (Bisacodyl) 10 Mg Supp 10 Mg RECTAL DAILY PRN Mapap (Acetaminophen) 325 Mg Tab 650 Mg PO Q4HR PRN Onswmoly-Jeqphrxok-Wotzqjhdzku Liq 200-200-20 Mg/5 Ml Susp 30 Ml PO Q4HR PRN Take between meals or as directed. Shake well. Do not exceed 120 mL/24 hrs. Pravastatin 40 Mg Tab 40 Mg PO HS Metformin (Metformin HCl) 500 Mg Tab 500 Mg PO BIDPC With meals Gabapentin 300 Mg Cap 300 Mg PO TID Lexapro (Escitalopram Oxalate) 10 Mg Tab 10 Mg PO DAILY Carvedilol 12.5 Mg Tab 12.5 Mg PO BID Buspirone (Buspirone HCl) 10 Mg Tab 10 Mg PO DAILY Allergies: Coded Allergies: *MDRO Multi-Drug Resistant Organism (Verified Adverse Reaction, Unknown, MRSA, 08/20/17) MRSA (blood & wound) - 08/01/10 Family History Patient is unaware of his family history. Social History Denies alcohol, tobacco and illicit drugs Physical Exam Vital Signs Vital Signs Date Time Temp Pulse Resp B/P (MAP) Pulse Ox O2 Delivery O2 Flow Rate FiO2 08/20/17 18:51 08/20/17 17:01 75 22 127/57 (80) Room Air 08/20/17 13:40 99.5 88 20 93/52 (66) 100 Room Air Physical Exam GENERAL: Obese, male lying in bed SKIN: No rashes, ecchymoses or lesions. Cool and dry. HEAD: Atraumatic. Normocephalic. No temporal or scalp tenderness. EYES: Pupils equal round and reactive. Extraocular motions intact. No scleral icterus. No injection or drainage. ENT: Nose without bleeding, purulent drainage or septal hematoma. Throat without erythema, tonsillar hypertrophy or exudate. Uvula midline. Airway patent. NECK: Trachea midline. No JVD or lymphadenopathy. Supple, nontender, no meningeal signs. CARDIOVASCULAR: Regular rate and rhythm without murmurs, gallops, or rubs. RESPIRATORY: Clear to auscultation. Breath sounds equal bilaterally. No wheezes , rales, or rhonchi. GASTROINTESTINAL: Abdomen soft, non-tender, nondistended. No hepato-splenomegaly , or palpable masses. No guarding. MUSCULOSKELETAL: Extremities without clubbing, cyanosis, or edema. No joint tenderness, effusion, or edema noted. No calf tenderness. Negative Homans sign bilaterally. NEUROLOGICAL: Awake and alert. Cranial nerves II through XII intact. Slurred speech. Left upper and lower extremity paralysis. Laboratory Laboratory Tests Test 08/20/17 15:30 08/20/17 16:53 White Blood Count 8.0 Red Blood Count 5.29 Hemoglobin 15.9 Hematocrit 50.4 Mean Corpuscular Volume 95.3 Mean Corpuscular Hemoglobin 30.2 Mean Corpuscular Hemoglobin Concent 31.7 Red Cell Distribution Width 14.1 Platelet Count 243 Mean Platelet Volume 10.1 Neutrophils (%) (Auto) 63.2 Lymphocytes (%) (Auto) 25.1 Monocytes (%) (Auto) 8.6 Eosinophils (%) (Auto) 2.4 Basophils (%) (Auto) 0.7 Neutrophils # (Auto) 5.0 Lymphocytes # (Auto) 2.0 Monocytes # (Auto) 0.7 Eosinophils # (Auto) 0.2 Basophils # (Auto) 0.1 CBC Comment DIFF FINAL Differential Comment Urine Color LIGHT-YELLOW Urine Turbidity CLEAR Urine pH 5.0 Urine Specific [place] 1.013 Urine Protein NEG Urine Glucose (UA) 1000 Urine Ketones NEG Urine Occult Blood TRACE Urine Nitrite NEG Urine Bilirubin NEG Urine Urobilinogen LESS THAN 2.0 Urine Leukocyte Esterase NEG Urine RBC LESS THAN 1 Urine WBC LESS THAN 1 Microscopic Urinalysis Comment CULT NOT INDICATED Blood Urea Nitrogen 58 Creatinine 1.99 Random Glucose 625 Total Protein 8.3 Albumin 4.0 Calcium Level 9.3 Alkaline Phosphatase 166 Aspartate Amino Transf (AST/SGOT) 13 Alanine Aminotransferase (ALT/SGPT) 30 Total Bilirubin 0.3 Sodium Level 140 Potassium Level 4.4 Chloride Level 103 Carbon Dioxide Level 28.6 Anion Gap 8 Estimat Glomerular Filtration Rate 44 Lipase 421 B-Hydroxybutyrate 0.25 Lactic Acid Level 2.0 Result Diagram: 08/20/17 1530 08/20/17 153 Caprini VTE Risk Assessment Caprini VTE Risk Assessment: Mod/High Risk (score >= 2) Caprini Risk Assessment Model Point Value = 1 Point Value = 2 Point Value = 3 Point Value = 5 Age 41-60 Minor surgery BMI > 25 kg/m2 Swollen legs Varicose veins or History of unexplained or recurrent spontaneous Oral contraceptives or hormone replacement Sepsis (< 1 month) Serious lung disease, including pneumonia (< 1 month) Abnormal pulmonary function Acute myocardial infarction Congestive heart failure (< 1 month) History of inflammatory bowel disease Medical patient at bed rest Age 61-74 Arthroscopic surgery Major open surgery (> 45 min) Laparoscopic surgery (> 45 min) Malignancy Confined to bed (> 72 hours) Immobilizing plaster cast Central venous access Age >= 75 History of VTE Family history of VTE Factor V Leiden Prothrombin [id number] Lupus anticoagulant Anticardiolipin antibodies Elevated serum homocysteine Heparin-induced thrombocytopenia Other congenital or acquired thrombophilia Stroke (< 1 month) Elective arthroplasty Hip, pelvis, or leg fracture Acute spinal cord injury (< 1 month) Prophylaxis Regimen Total Risk Factor Score Risk Level Prophylaxis Regimen 0-1 Low Early ambulation 2 Moderate Order ONE of the following: *Sequential Compression Device (SCD) *Heparin 5000 units SQ BID 3-4 Higher Order ONE of the following medications: *Heparin 5000 units SQ TID *Enoxaparin/Lovenox 40 mg SQ daily (WT < 150 kg, CrCl > 30 mL/min) *Enoxaparin/Lovenox 30 mg SQ daily (WT < 150 kg, CrCl > 10-29 mL/min) *Enoxaparin/Lovenox 30 mg SQ BID (WT < 150 kg, CrCl > 30 mL/min) AND/OR *Sequential Compression Device (SCD) 5 or more Highest Order ONE of the following medications: *Heparin 5000 units SQ TID (Preferred with Epidurals) *Enoxaparin/Lovenox 40 mg SQ daily (WT < 150 kg, CrCl > 30 mL/min) *Enoxaparin/Lovenox 30 mg SQ daily (WT < 150 kg, CrCl > 10-29 mL/min) *Enoxaparin/Lovenox 30 mg SQ BID (WT < 150 kg, CrCl > 30 mL/min) AND *Sequential Compression Device (SCD) Assessment and Plan Assessment and Plan 47-year-old male with left sided hemiplegia from MCA stroke 2 years ago, CHF, cardiomyopathy, hypertension, hyperlipidemia and type 2 diabetes mellitus presents with hyperglycemia and LINDA. 1. HHS/Diabetes Mellitus No anion gap, beta hydroxybutyrate 0.25, blood glucose 625 Patient not on insulin, only takes metformin Status post 1 L bolus in the ED, continue gentle IV fluid hydration as patient has EF of 20-25% Status post IV insulin, repeat subcutaneous insulin dosing now SSI A1c pending Patient will likely need an insulin regimen for home 2. LINDA BUN/creatinine 58/1.99 Gentle IV fluid hydration as above Follow-up BMP 3. Cardiomyopathy/CHF/AICD placement Continue home medications Monitor closely for signs of volume overload 4. History of right MCA stroke Continue anticoagulation with warfarin INR pending 5. Hyperlipidemia/hypertension Continue home medications FEN NPO Electrolytes: Monitor and replete when necessary NS at 100 cc/hour Warfarin Physician Certification 2 Midnight Certification Type: Admission for Inpatient Services Order for Inpatient Services The services are ordered in accordance with Medicare regulations or non- Medicare payer requirements, as applicable. In the case of services not specified as inpatient-only, they are appropriately provided as inpatient services in accordance with the 2-midnight benchmark. Estimated LOS (days): 2 2 days is the estimated time the patient will need to remain in the hospital, assuming treatment plan goals are met and no additional complications. Post-Hospital Plan: Not yet determined Christa Chow MD Aug 20, 2017 19:54
[2017-08-20 20:00] VITALS: PULSE 77
[2017-08-20 21:00] VITALS: BP 103/55; PULSE 71; RESP 20; TEMP 97.8; O2SAT 98
[2017-08-20] MEDS: SODIUM CHLORIDE 0.9% FLUSH 10 ML FLUSH IV FLUSH SCH ×2 (21:24→21:25)
[2017-08-20] MEDS: SODIUM CHLOR 0.9% 1000 ML INJ 1,000 ML IV SCH (21:27)
[2017-08-20 21:41] LABS: APTT (PATIENT) 36.4 SEC (24.3-30.1); INTERNATIONAL NORMALIZED RATIO 2.9 RATIO; PROTHROMBIN TIME - PATIENT 33.5 SEC (9.8-11.6)
[2017-08-20 22:02] VITALS: O2SAT 97
[2017-08-20 22:19] LABS: HEMOGLOBIN A1a 1.3 %; HEMOGLOBIN A1b 1.5 %; HEMOGLOBIN Ao 72.5 %; HEMOGLOBIN F 2.1 %; HEMOGLOBIN LA1C 4.3 %; HEMOGLOBIN P3 7.3 %
[2017-08-20] MEDS: DOCUSATE SODIUM 50 MG/SENNA 8.6 MG TAB PO SCH (22:56)
[2017-08-20] MEDS: CARVEDILOL 12.5 MG TAB PO SCH (22:56)
[2017-08-20] MEDS: PRAVASTATIN SOD 40 MG TAB PO SCH (22:56)
[2017-08-20] MEDS: BUMETANIDE 1 MG TAB PO SCH (22:57)
[2017-08-20] MEDS: INSULIN ASPART SUPPLEMENTAL SCALE SQ SCH (22:58)
[2017-08-21] VITALS (7 sets, daily range): BP systolic 106–144; BP diastolic 58–86; PULSE 62–83; RESP 18–20; TEMP 98.1–99.1; O2SAT 98–100
[2017-08-21] MEDS: SODIUM CHLOR 0.9% 1000 ML INJ 1,000 ML IV SCH (07:05)
[2017-08-21 07:25] LABS: BASOPHIL # 0.1 TH/MM3 (0-0.2); BASOPHIL % 0.8 % (0.0-2.0); EOSINOPHIL # 0.2 TH/MM3 (0-0.4); EOSINOPHIL % 2.1 % (0.0-4.0); HEMATOCRIT 43.7 % (39.0-51.0); HEMO FLAGS DIFF FINAL; LYMPH % 25.8 % (9.0-44.0); LYMPHOCYTE # 2.1 TH/MM3 (1.0-4.8); MEAN CELL VOLUME 90.9 FL (80.0-100.0); MONO % 9.3 % (0.0-8.0); PLATELET COUNT 227 TH/MM3 (150-450); RED CELL DISTRIBUTION WIDTH 13.8 % (11.6-17.2); WHITE BLOOD COUNT 8.1 TH/MM3 (4.0-11.0)
[2017-08-21 07:56] LABS: BICARBONATE 25.7 MEQ/L (21.0-32.0); POTASSIUM 4.1 MEQ/L (3.5-5.1)
[2017-08-21] MEDS: SODIUM CHLORIDE 0.9% FLUSH 10 ML FLUSH IV FLUSH SCH ×3 (09:00→21:00)
[2017-08-21] MEDS: INSULIN ASPART SUPPLEMENTAL SCALE SQ SCH ×4 (10:27→21:13)
[2017-08-21] MEDS: busPIRone HCL 10 MG TAB PO SCH (10:28)
[2017-08-21] MEDS: ESCITALOPRAM OXALATE 10 MG TAB PO SCH (10:28)
[2017-08-21] MEDS: LISINOPRIL 20 MG TAB PO SCH (10:28)
[2017-08-21] MEDS: DOCUSATE SODIUM 50 MG/SENNA 8.6 MG TAB PO SCH ×2 (10:28→21:12)
[2017-08-21] MEDS: GABAPENTIN 300 MG CAP PO SCH ×3 (10:28→18:36)
[2017-08-21] MEDS: BUMETANIDE 1 MG TAB PO SCH ×2 (10:29→21:12)
[2017-08-21] MEDS: CARVEDILOL 12.5 MG TAB PO SCH ×2 (10:29→21:12)
[2017-08-21 11:28] LABS: INTERNATIONAL NORMALIZED RATIO 2.5 RATIO; PROTHROMBIN TIME - PATIENT 28.6 SEC (9.8-11.6)
[2017-08-21 11:53] LABS: CREATINE KINASE 291 U/L (39-308)
[2017-08-21] MEDS ORDERED: INSULIN DETEMIR 100 UNITS/ML VIAL SQ SCH (12:00)
[2017-08-21] MEDS: SODIUM CHLOR 0.45% 1000 ML INJ 1,000 ML IV SCH (12:56)
--- NOTE | 2017-08-21 15:14 | HHI.PR ---
Subjective Remarks Follow-up hyperglycemia. Patient has no new complaints agrees to be on insulin. Discussed with RN Objective Vitals Vital Signs Date Time Temp Pulse Resp B/P (MAP) Pulse Ox O2 Delivery O2 Flow Rate FiO2 08/21/17 12:00 99.1 83 20 144/86 (105) 99 08/21/17 08:00 98.5 74 18 129/61 (83) 100 08/21/17 04:00 98.2 74 20 118/60 (79) 98 08/21/17 00:00 98.1 80 20 119/69 (86) 100 08/20/17 22:02 97 08/20/17 21:00 97.8 71 20 103/55 (71) 98 08/20/17 21:00 Room Air 08/20/17 20:00 77 08/20/17 18:51 08/20/17 17:01 75 22 127/57 (80) Room Air I/O 08/20/17 08/20/17 08/20/17 08/21/17 08/21/17 08/21/17 07:00 15:00 23:00 07:00 15:00 23:00 Intake Total 869 ml Balance 869 ml Intake IV Total 869 ml # Voids 4 # Bowel Movements 2 Result Diagram: 08/21/1763008/21/17630 Objective Remarks GENERAL: Obese, male lying in bed SKIN: No rashes, ecchymoses or lesions. Cool and dry. CARDIOVASCULAR: Regular rate and rhythm without murmurs, gallops, or rubs. RESPIRATORY: Clear to auscultation. Breath sounds equal bilaterally. No wheezes , rales, or rhonchi. GASTROINTESTINAL: Abdomen soft, non-tender, nondistended. No guarding. MUSCULOSKELETAL: Extremities without clubbing, cyanosis, or edema. No joint tenderness, effusion, or edema noted. No calf tenderness. Negative Homans sign bilaterally. NEUROLOGICAL: Awake and alert. Cranial nerves II through XII intact. Slurred speech. Left upper and lower extremity paralysis. Procedures none A/P Problem List: (1) DM type 2 (diabetes mellitus, type 2) ICD Code: E11.9 - Type 2 diabetes mellitus Status: Chronic Assessment and Plan 47-year-old male with left sided hemiplegia from MCA stroke 2 years ago, CHF, cardiomyopathy, hypertension, hyperlipidemia and type 2 diabetes mellitus presents with hyperglycemia and LINDA. 1. HHS/Diabetes Mellitus No anion gap, beta hydroxybutyrate 0.25, blood glucose 625 Patient not on insulin, only takes metformin Status post 1 L bolus in the ED, continue gentle IV fluid hydration as patient has EF of 20-25% Status post IV insulin, repeat subcutaneous insulin dosing now SSI A1c 11. Start Levemir 20 units daily and adjust accordingly. Diabetic education Patient will likely need an insulin regimen for home 2. LINDA. Improving BUN/creatinine 58/1.99 Gentle IV fluid hydration as above Avoid nephrotoxins. Follow-up BMP 3. Cardiomyopathy/CHF/AICD placement Continue home medications Monitor closely for signs of volume overload 4. History of right MCA stroke Continue anticoagulation with warfarin Monitor INR 5. Hyperlipidemia/hypertension Continue home medications FEN Electrolytes: Monitor and replete when necessary 1/2 NS at 84 cc/hour Warfarin Discharge Planning Not ready for discharge Jose Gonzalez MD Aug 21, 2017 15:14
[2017-08-21] MEDS ORDERED: WARFARIN SOD 5 MG TAB PO SCH (16:00)
[2017-08-21] MEDS: PRAVASTATIN SOD 40 MG TAB PO SCH (21:12)
[2017-08-22] VITALS (8 sets, daily range): BP systolic 101–150; BP diastolic 48–77; PULSE 67–88; RESP 18–20; TEMP 98–98.8; O2SAT 96–100
[2017-08-22] MEDS: SODIUM CHLOR 0.45% 1000 ML INJ 1,000 ML IV SCH ×3 (00:43→23:45)
[2017-08-22] MEDS ORDERED: INSULIN DETEMIR 100 UNITS/ML VIAL SQ ONE (08:30)
[2017-08-22] MEDS: SODIUM CHLORIDE 0.9% FLUSH 10 ML FLUSH IV FLUSH SCH ×2 (09:00→20:52)
[2017-08-22 09:18] LABS: INTERNATIONAL NORMALIZED RATIO 2.7 RATIO; PROTHROMBIN TIME - PATIENT 30.8 SEC (9.8-11.6)
[2017-08-22] MEDS: INSULIN ASPART SUPPLEMENTAL SCALE SQ SCH ×4 (09:25→20:53)
[2017-08-22] MEDS: LISINOPRIL 20 MG TAB PO SCH (09:27)
[2017-08-22] MEDS: DOCUSATE SODIUM 50 MG/SENNA 8.6 MG TAB PO SCH ×2 (09:27→20:52)
[2017-08-22] MEDS: ESCITALOPRAM OXALATE 10 MG TAB PO SCH (09:27)
[2017-08-22] MEDS: GABAPENTIN 300 MG CAP PO SCH ×3 (09:27→16:46)
[2017-08-22] MEDS: CARVEDILOL 12.5 MG TAB PO SCH ×2 (09:28→20:52)
[2017-08-22] MEDS: BUMETANIDE 1 MG TAB PO SCH ×2 (09:28→20:52)
[2017-08-22] MEDS: busPIRone HCL 10 MG TAB PO SCH (09:28)
[2017-08-22 09:32] LABS: BICARBONATE 27.6 MEQ/L (21.0-32.0); MAGNESIUM 1.7 MG/DL (1.5-2.5); POTASSIUM 3.7 MEQ/L (3.5-5.1)
[2017-08-22] MEDS ORDERED: POTASSIUM CHLORIDE 20 MEQ CONTROLLED RELEASE TAB PO ONE (10:00)
[2017-08-22] MEDS: MAGNESIUM OXIDE 400 MG TAB PO SCH ×2 (10:00→20:51)
--- NOTE | 2017-08-22 14:07 | HHI.PR ---
Subjective Remarks Follow diabetes mellitus. Remains hyperglycemic. This morning developed asymptomatic 6 beat run of nonsustained VT history of cardiomyopathy status post AICD. Coreg has been increased to 25 mg twice a day. Discussed with RN Objective Vitals Vital Signs Date Time Temp Pulse Resp B/P (MAP) Pulse Ox O2 Delivery O2 Flow Rate FiO2 08/22/17 12:00 98.7 75 18 113/59 (77) 99 08/22/17 08:03 80 08/22/17 08:00 98.0 76 18 150/65 (93) 100 08/22/17 04:51 98.8 88 20 101/48 (65) 96 08/22/17 04:00 Room Air 08/22/17 00:13 98.4 84 20 102/63 (76) 100 08/22/17 00:00 Room Air 08/21/17 21:16 98.2 77 20 106/58 (74) 98 08/21/17 20:00 77 08/21/17 20:00 Room Air 08/21/17 16:00 98.4 77 20 122/66 (84) 99 I/O 08/21/17 08/21/17 08/21/17 08/22/17 08/22/17 08/22/17 07:00 15:00 23:00 07:00 15:00 23:00 Intake Total 869 ml 1584 ml 420 ml Balance 869 ml 1584 ml 420 ml Intake Oral 720 ml 420 ml IV Total 869 ml 864 ml # Voids 4 2 # Bowel Movements 2 2 1 Result Diagram: 08/21/17 0631 08/22/17824 Objective Remarks GENERAL: Obese, male lying in bed SKIN: No rashes, ecchymoses or lesions. Cool and dry. CARDIOVASCULAR: Regular rate and rhythm without murmurs, gallops, or rubs. RESPIRATORY: Clear to auscultation. Breath sounds equal bilaterally. No wheezes , rales, or rhonchi. GASTROINTESTINAL: Abdomen soft, non-tender, nondistended. No guarding. MUSCULOSKELETAL: Extremities without clubbing, cyanosis, or edema. No joint tenderness, effusion, or edema noted. No calf tenderness. Negative Homans sign bilaterally. NEUROLOGICAL: Awake and alert. Cranial nerves II through XII intact. Slurred speech. Left upper and lower extremity paralysis. No severe change in PE from previous Procedures none A/P Problem List: (1) DM type 2 (diabetes mellitus, type 2) ICD Code: E11.9 - Type 2 diabetes mellitus Status: Chronic Assessment and Plan 47-year-old male with left sided hemiplegia from MCA stroke 2 years ago, CHF, cardiomyopathy, hypertension, hyperlipidemia and type 2 diabetes mellitus presents with hyperglycemia and LINDA. 1. HHS/Diabetes Mellitus No anion gap, beta hydroxybutyrate 0.25, blood glucose 625 Patient not on insulin, only takes metformin Status post 1 L bolus in the ED, continue gentle IV fluid hydration as patient has EF of 20-25% Status post IV insulin, repeat subcutaneous insulin dosing now SSI A1c 11. Remains uncontrolled start Levemir 10 units at bedtime, preprandial NovoLog 5 units 3 times a day and continue Levemir 20 units daily and adjust accordingly. Diabetic education Diabetic education 2. LINDA. Improving BUN/creatinine 58/1.99 Gentle IV fluid hydration as above Avoid nephrotoxins. Follow-up BMP 3. Cardiomyopathy/CHF/AICD placement. Patient with 6 beat run of nonsustained V. tach Continue home medications increase Coreg. Also aggressive electrolyte replacement specially potassium and magnesium. We'll give 30 mEq by mouth potassium and magnesium 20 minutes twice a day and repeat lites in the morning. Monitor on hospital pharmacy technician closely for signs of volume overload 4. History of right MCA stroke Continue anticoagulation with warfarin Monitor INR 5. Hyperlipidemia/hypertension Continue home medications FEN Electrolytes: Monitor and replete when necessary 1/2 NS at 84 cc/hour Warfarin Discharge Planning Not ready for discharge Jose Gonzalez MD Aug 22, 2017 14:07
[2017-08-22] MEDS ORDERED: NOVOLOGSS SQ (14:15)
[2017-08-22] MEDS ORDERED: MAGN400T2 PO (14:15)
[2017-08-22] MEDS ORDERED: CARV12.5 PO (14:15)
[2017-08-22] MEDS ORDERED: COUM4TAB PO (14:15)
--- NOTE | 2017-08-22 14:15 | HHI.DCPOC ---
Discharge Care Plan Diagnosis: (1) DM type 2 (diabetes mellitus, type 2) Your Health Problems Are: Difficulty with ADL Exercise Tolerance Goals to Promote Your Health * To prevent worsening of your condition and complications * To maintain your health at the optimal level Directions to Meet Your Goals Take your medications as prescribed Follow your dietary instruction Follow activity as directed Keep your appointments as scheduled Take your immunizations and boosters as scheduled If your symptoms worsen call your PCP, if no PCP go to Urgent Care Center or Emergency Room Smoking is Dangerous to Your Health. Avoid second hand smoke Call the 24-hour hour crisis hotline for domestic abuse at Jose Gonzalez MD Aug 22, 2017 14:15
[2017-08-22] MEDS ORDERED: LORA-392 PO (15:00)
[2017-08-22] MEDS ORDERED: LORazepam 0.5 MG TAB PO PRN (15:00)
[2017-08-22] MEDS ORDERED: WARFARIN SOD 2.5 MG TAB PO ONE (16:00)
[2017-08-22] MEDS: INSULIN ASPART 1,000 UNITS/10 ML VIAL SQ SCH (16:34)
[2017-08-22] MEDS: PRAVASTATIN SOD 40 MG TAB PO SCH (20:52)
[2017-08-22] MEDS ORDERED: INSULIN DETEMIR 100 UNITS/ML VIAL SQ SCH (21:00)
[2017-08-23] VITALS (7 sets, daily range): BP systolic 95–176; BP diastolic 59–80; PULSE 57–80; RESP 16–21; TEMP 97.1–98.9; O2SAT 95–99
[2017-08-23] MEDS ORDERED: INSULIN DETEMIR 100 UNITS/ML VIAL SQ SCH ×3 (08:00→21:00)
[2017-08-23] MEDS: INSULIN ASPART 1,000 UNITS/10 ML VIAL SQ SCH ×3 (08:00→17:00)
[2017-08-23] MEDS: INSULIN ASPART SUPPLEMENTAL SCALE SQ SCH ×4 (08:00→21:03)
[2017-08-23 08:20] LABS: INTERNATIONAL NORMALIZED RATIO 2.8 RATIO; PROTHROMBIN TIME - PATIENT 32.1 SEC (9.8-11.6)
[2017-08-23 08:32] LABS: MAGNESIUM 1.7 MG/DL (1.5-2.5); POTASSIUM 3.5 MEQ/L (3.5-5.1)
[2017-08-23] MEDS: SODIUM CHLORIDE 0.9% FLUSH 10 ML FLUSH IV FLUSH SCH ×2 (09:00→21:03)
[2017-08-23] MEDS: GABAPENTIN 300 MG CAP PO SCH ×3 (09:29→17:05)
[2017-08-23] MEDS: CARVEDILOL 12.5 MG TAB PO SCH ×2 (09:29→21:00)
[2017-08-23] MEDS: BUMETANIDE 1 MG TAB PO SCH ×2 (09:29→20:59)
[2017-08-23] MEDS: ESCITALOPRAM OXALATE 10 MG TAB PO SCH (09:30)
[2017-08-23] MEDS: busPIRone HCL 10 MG TAB PO SCH (09:30)
[2017-08-23] MEDS: LISINOPRIL 20 MG TAB PO SCH (09:30)
[2017-08-23] MEDS: MAGNESIUM OXIDE 400 MG TAB PO SCH ×2 (09:30→20:59)
[2017-08-23] MEDS: DOCUSATE SODIUM 50 MG/SENNA 8.6 MG TAB PO SCH ×2 (09:30→21:00)
--- NOTE | 2017-08-23 14:14 | HHI.PR ---
Subjective Remarks Follow-up diabetes mellitus. Remains hyperglycemic over 300 this morning. Denies any symptoms no dizziness, blurred vision, polyuria, polydipsia and polyphagia. Discussed with RN Objective Vitals Vital Signs Date Time Temp Pulse Resp B/P (MAP) Pulse Ox O2 Delivery O2 Flow Rate FiO2 08/23/17 12:00 98.5 78 20 176/80 (112) 97 08/23/17 08:00 98.2 75 20 121/60 (80) 97 08/23/17 04:00 97.1 57 16 95/59 (71) 95 08/23/17 04:00 Room Air 08/23/17 00:00 Room Air 08/23/17 00:00 98.3 78 16 136/72 (93) 98 08/22/17 20:00 Room Air 08/22/17 20:00 81 08/22/17 20:00 98.4 78 18 116/58 (77) 99 08/22/17 16:00 98.6 67 18 144/77 (99) 100 I/O 08/22/17 08/22/17 08/22/17 08/23/17 08/23/17 08/23/17 07:00 15:00 23:00 07:00 15:00 23:00 Intake Total 420 ml 720 ml Output Total 900 ml 960 ml Balance 420 ml -180 ml -960 ml Intake Oral 420 ml 720 ml Output Urine Total 900 ml 960 ml # Voids 1 4 # Bowel Movements 1 1 1 Result Diagram: 08/21/17 0631 08/23/17 0644 Objective Remarks GENERAL: Obese, male lying in bed SKIN: No rashes, ecchymoses or lesions. Cool and dry. CARDIOVASCULAR: Regular rate and rhythm without murmurs, gallops, or rubs. RESPIRATORY: Clear to auscultation. Breath sounds equal bilaterally. No wheezes , rales, or rhonchi. GASTROINTESTINAL: Abdomen soft, non-tender, nondistended. No guarding. MUSCULOSKELETAL: Extremities without clubbing, cyanosis, or edema. No joint tenderness, effusion, or edema noted. No calf tenderness. Negative Homans sign bilaterally. NEUROLOGICAL: Awake and alert. Cranial nerves II through XII intact. Slurred speech. Left upper and lower extremity paralysis. Procedures none A/P Problem List: (1) DM type 2 (diabetes mellitus, type 2) ICD Code: E11.9 - Type 2 diabetes mellitus Status: Chronic Assessment and Plan 47-year-old male with left sided hemiplegia from MCA stroke 2 years ago, CHF, cardiomyopathy, hypertension, hyperlipidemia and type 2 diabetes mellitus presents with hyperglycemia and LINDA. 1. HHS/Diabetes Mellitus No anion gap, beta hydroxybutyrate 0.25, blood glucose 625 Patient not on insulin, only takes metformin Status post 1 L bolus in the EDSSI A1c 11. Remains uncontrolled increase Levemir to 35 units in the morning and 20 units at bedtime, continue preprandial NovoLog 5 units 3 times a day daily. Diabetic education Diabetic education 2. LINDA. Improving BUN/creatinine 58/1.99 Discontinue IV hydration Avoid nephrotoxins. Follow-up BMP 3. Cardiomyopathy/CHF/AICD placement. Patient with 6 beat run of nonsustained V. tach Continue home medications increase Coreg. Also aggressive electrolyte replacement specially potassium and magnesium. Potassium 20 mg by mouth 1 today. Monitor on histological illustrator closely for signs of volume overload 4. History of right MCA stroke Continue anticoagulation with warfarin Monitor INR 5. Hyperlipidemia/hypertension Continue home medications FEN Electrolytes: Monitor and replete when necessary Discharge Planning Not ready for discharge. He is improving but remains significantly hyperglycemic. High likelihood of readmission Jose Gonzalez MD Aug 23, 2017 14:14
[2017-08-23] MEDS: WARFARIN SOD 4 MG TAB PO SCH (17:05)
[2017-08-23] MEDS: POTASSIUM CHLORIDE 20 MEQ CONTROLLED RELEASE TAB PO SCH (17:05)
[2017-08-23] MEDS: PRAVASTATIN SOD 40 MG TAB PO SCH (21:00)
[2017-08-24] VITALS: BP 110/62; PULSE 65; RESP 20; TEMP 98.5; O2SAT 96
[2017-08-24 04:00] VITALS: BP 95/53; PULSE 63; RESP 16; TEMP 97.7; O2SAT 99
[2017-08-24 07:23] LABS: INTERNATIONAL NORMALIZED RATIO 2.6 RATIO; PROTHROMBIN TIME - PATIENT 29.9 SEC (9.8-11.6)
[2017-08-24 07:30] LABS: BICARBONATE 30.2 MEQ/L (21.0-32.0); MAGNESIUM 1.9 MG/DL (1.5-2.5); POTASSIUM 3.5 MEQ/L (3.5-5.1)
[2017-08-24 08:00] VITALS: BP 117/57; PULSE 58; RESP 20; TEMP 98.1; O2SAT 97
[2017-08-24] MEDS ORDERED: INSULIN DETEMIR 100 UNITS/ML VIAL SQ SCH ×2 (08:00→21:00)
[2017-08-24] MEDS: INSULIN ASPART SUPPLEMENTAL SCALE SQ SCH ×4 (08:39→22:03)
[2017-08-24] MEDS: INSULIN ASPART 1,000 UNITS/10 ML VIAL SQ SCH ×3 (08:39→17:09)
[2017-08-24] MEDS: SODIUM CHLORIDE 0.9% FLUSH 10 ML FLUSH IV FLUSH SCH ×2 (08:39→22:03)
[2017-08-24] MEDS: GABAPENTIN 300 MG CAP PO SCH ×3 (08:40→17:03)
[2017-08-24] MEDS: MAGNESIUM OXIDE 400 MG TAB PO SCH ×2 (08:40→22:02)
[2017-08-24] MEDS: DOCUSATE SODIUM 50 MG/SENNA 8.6 MG TAB PO SCH ×2 (08:40→22:02)
[2017-08-24] MEDS: POTASSIUM CHLORIDE 20 MEQ CONTROLLED RELEASE TAB PO SCH (08:40)
[2017-08-24] MEDS: busPIRone HCL 10 MG TAB PO SCH (08:41)
[2017-08-24] MEDS: ESCITALOPRAM OXALATE 10 MG TAB PO SCH (08:41)
[2017-08-24] MEDS: BUMETANIDE 1 MG TAB PO SCH ×2 (08:42→22:02)
[2017-08-24] MEDS: CARVEDILOL 12.5 MG TAB PO SCH ×2 (08:43→22:02)
[2017-08-24] MEDS: LISINOPRIL 20 MG TAB PO SCH (08:43)
[2017-08-24] MEDS ORDERED: POTA20TA5 PO (09:58)
[2017-08-24] MEDS ORDERED: LEVEMIR SQ ×2 (09:58)
--- NOTE | 2017-08-24 10:00 | HHI.PR ---
Subjective Remarks Follow-up diabetes mellitus. Patient complains he denies dizziness, blurred vision and nausea. Fingersticks improving but still significantly elevated. Discussed with RN Objective Vitals Vital Signs Date Time Temp Pulse Resp B/P (MAP) Pulse Ox O2 Delivery O2 Flow Rate FiO2 08/24/17 08:00 98.1 58 20 117/57 (77) 97 08/24/17 04:00 97.7 63 16 95/53 (67) 99 08/24/17 00:00 98.5 65 20 110/62 (78) 96 08/23/17 21:11 155/78 (103) 08/23/17 21:00 Room Air 08/23/17 20:00 75 08/23/17 20:00 98.1 80 21 97/66 (76) 95 08/23/17 17:47 99 Room Air 08/23/17 16:00 98.9 65 20 147/78 (101) 99 08/23/17 12:00 98.5 78 20 176/80 (112) 97 I/O 08/23/17 08/23/17 08/23/17 08/24/17 08/24/17 08/24/17 07:00 15:00 23:00 07:00 15:00 23:00 Intake Total 2612 ml Output Total 960 ml 600 ml Balance -960 ml 2612 ml -600 ml Intake Oral 720 ml IV Total 1892 ml Output Urine Total 960 ml 600 ml # Voids 5 3 # Bowel Movements 2 Result Diagram: 08/21/17 0631 08/24/17 0653 Objective Remarks GENERAL: Obese, male in no distress. SKIN: No rashes, ecchymoses or lesions. Cool and dry. CARDIOVASCULAR: Regular rate and rhythm without murmurs, gallops, or rubs. RESPIRATORY: Clear to auscultation. Breath sounds equal bilaterally. No wheezes , rales, or rhonchi. GASTROINTESTINAL: Abdomen soft, non-tender, nondistended. No guarding. MUSCULOSKELETAL: Extremities without clubbing, cyanosis, or edema. No joint tenderness, effusion, or edema noted. No calf tenderness. Negative Homans sign bilaterally. NEUROLOGICAL: Awake and alert. Cranial nerves II through XII intact. Slurred speech. Left upper and lower extremity paralysis. Procedures none A/P Problem List: (1) DM type 2 (diabetes mellitus, type 2) ICD Code: E11.9 - Type 2 diabetes mellitus Status: Chronic Assessment and Plan 47-year-old male with left sided hemiplegia from MCA stroke 2 years ago, CHF, cardiomyopathy, hypertension, hyperlipidemia and type 2 diabetes mellitus presents with hyperglycemia and LINDA. 1. HHS/Diabetes Mellitus No anion gap, beta hydroxybutyrate 0.25, blood glucose 625 Patient not on insulin, only takes metformin Status post 1 L bolus in the EDSSI A1c 11. Fingersticks improving but still significantly elevated increase Levemir to 40 units in the morning and 30 units at bedtime, continue preprandial NovoLog 5 units 3 times a day daily. Restart metformin. Diabetic education Diabetic education 2. LINDA. Resolve in BUN/creatinine 58/1.99 Discontinue IV hydration Avoid nephrotoxins. Follow-up BMP 3. Cardiomyopathy/CHF/AICD placement. Patient with 6 beat run of nonsustained V. tach Continue home medications increase Coreg. Also aggressive electrolyte replacement specially potassium and magnesium. Potassium 20 mg by mouth 1 today. Monitor on surgery nurse closely for signs of volume overload 4. History of right MCA stroke Continue anticoagulation with warfarin Monitor INR 5. Hyperlipidemia/hypertension Continue home medications FEN Electrolytes: Monitor and replete when necessary Discharge Planning Not ready for discharge. He is improving but remains significantly hyperglycemic. High likelihood of readmission Jose Gonzalez MD Aug 24, 2017 10:00
[2017-08-24] MEDS: metFORMIN HCL 500 MG TAB PO SCH ×2 (10:20→17:03)
[2017-08-24 16:00] VITALS: BP 105/63; PULSE 80; RESP 20; TEMP 98.8; O2SAT 97
[2017-08-24] MEDS: WARFARIN SOD 4 MG TAB PO SCH (17:03)
[2017-08-24 18:39] VITALS: PULSE 66
[2017-08-24 20:00] VITALS: BP 96/59; PULSE 75; PULSE 81; RESP 20; TEMP 98.3; O2SAT 99
[2017-08-24] MEDS: PRAVASTATIN SOD 40 MG TAB PO SCH (22:03)
[2017-08-25] VITALS: BP 136/64; PULSE 74; RESP 18; TEMP 97.8; O2SAT 97
[2017-08-25 04:00] VITALS: BP 94/54; PULSE 76; RESP 20; TEMP 97.2; O2SAT 100
[2017-08-25 07:39] LABS: INTERNATIONAL NORMALIZED RATIO 2.1 RATIO; PROTHROMBIN TIME - PATIENT 24.1 SEC (9.8-11.6)
[2017-08-25 08:00] VITALS: BP 112/62; PULSE 68; RESP 18; TEMP 98.3; O2SAT 97
[2017-08-25] MEDS ORDERED: INSULIN DETEMIR 100 UNITS/ML VIAL SQ SCH (08:00)
[2017-08-25] MEDS: INSULIN ASPART 1,000 UNITS/10 ML VIAL SQ SCH ×2 (08:48→12:52)
[2017-08-25] MEDS: INSULIN ASPART SUPPLEMENTAL SCALE SQ SCH ×2 (08:48→12:52)
[2017-08-25] MEDS: metFORMIN HCL 500 MG TAB PO SCH (08:50)
[2017-08-25] MEDS: GABAPENTIN 300 MG CAP PO SCH ×2 (08:50→12:52)
[2017-08-25] MEDS: LISINOPRIL 20 MG TAB PO SCH (08:51)
[2017-08-25] MEDS: CARVEDILOL 12.5 MG TAB PO SCH (08:51)
[2017-08-25] MEDS: busPIRone HCL 10 MG TAB PO SCH (08:51)
[2017-08-25] MEDS: MAGNESIUM OXIDE 400 MG TAB PO SCH (08:51)
[2017-08-25] MEDS: ESCITALOPRAM OXALATE 10 MG TAB PO SCH (08:52)
[2017-08-25] MEDS: BUMETANIDE 1 MG TAB PO SCH (08:52)
[2017-08-25] MEDS: DOCUSATE SODIUM 50 MG/SENNA 8.6 MG TAB PO SCH (08:53)
[2017-08-25] MEDS: SODIUM CHLORIDE 0.9% FLUSH 10 ML FLUSH IV FLUSH SCH (08:53)
[2017-08-25] MEDS ORDERED: POTASSIUM CHLORIDE 10 MEQ CONTROLLED RELEASE TAB PO SCH (09:00)
[2017-08-25] MEDS ORDERED: NOVOLOGP2 SQ (11:44)
[2017-08-25 12:00] VITALS: BP 140/70; PULSE 78; RESP 18; TEMP 98.1; O2SAT 99
--- NOTE | 2017-08-25 15:10 | HHI.PR ---
Subjective Remarks Follow-up diabetes mellitus. Patient without symptoms happy to hear is being discharged. Discussed with RN Objective Vitals Vital Signs Date Time Temp Pulse Resp B/P (MAP) Pulse Ox O2 Delivery O2 Flow Rate FiO2 08/25/17 12:00 98.1 78 18 140/70 (93) 99 08/25/17 08:00 98.3 68 18 112/62 (79) 97 08/25/17 04:00 97.2 76 20 94/54 (67) 100 08/25/17 00:00 Room Air 08/25/17 00:00 97.8 74 18 136/64 (88) 97 08/24/17 21:30 Room Air 08/24/17 20:00 98.3 81 20 96/59 (71) 99 08/24/17 20:00 75 08/24/17 18:39 66 08/24/17 16:00 98.8 80 20 105/63 (77) 97 I/O 08/24/17 08/24/17 08/24/17 08/25/17 08/25/17 08/25/17 07:00 15:00 23:00 07:00 15:00 23:00 Intake Total 720 ml 840 ml Output Total 600 ml 910 ml Balance -600 ml 720 ml -70 ml Intake Oral 720 ml 840 ml Output Urine Total 600 ml 910 ml # Voids 3 1 # Bowel Movements 1 Result Diagram: 08/21/17 0631 08/24/17 0653 Objective Remarks GENERAL: Obese, male in no distress. SKIN: No rashes, ecchymoses or lesions. Cool and dry. CARDIOVASCULAR: Regular rate and rhythm without murmurs, gallops, or rubs. RESPIRATORY: Clear to auscultation. Breath sounds equal bilaterally. No wheezes , rales, or rhonchi. GASTROINTESTINAL: Abdomen soft, non-tender, nondistended. No guarding. MUSCULOSKELETAL: Extremities without clubbing, cyanosis, or edema. No joint tenderness, effusion, or edema noted. No calf tenderness. Negative Homans sign bilaterally. NEUROLOGICAL: Awake and alert. Cranial nerves II through XII intact. Slurred speech. Left upper and lower extremity paralysis. No significant change in PE from previous Procedures none A/P Problem List: (1) DM type 2 (diabetes mellitus, type 2) ICD Code: E11.9 - Type 2 diabetes mellitus Status: Chronic Assessment and Plan 47-year-old male with left sided hemiplegia from MCA stroke 2 years ago, CHF, cardiomyopathy, hypertension, hyperlipidemia and type 2 diabetes mellitus presents with hyperglycemia and LINDA. 1. HHS/Diabetes Mellitus No anion gap, beta hydroxybutyrate 0.25, blood glucose 625 Patient not on insulin, only takes metformin Status post 1 L bolus in the EDSSI A1c 11. Fingersticks improving but still significantly elevated increase Levemir to 45 units in the morning and 30 units at bedtime preprandial NovoLog to 8 units 3 times a day daily. Restarted metformin. Diabetic education Diabetic education 2. LINDA. Resolve in BUN/creatinine 58/1.99 Discontinue IV hydration Avoid nephrotoxins. Follow-up BMP 3. Cardiomyopathy/CHF/AICD placement. Patient with 6 beat run of nonsustained V. tach Continue home medications increase Coreg. Also aggressive electrolyte replacement specially potassium and magnesium. Potassium 20 mg by mouth 1 today. Monitor on agricultural produce washer closely for signs of volume overload 4. History of right MCA stroke Continue anticoagulation with warfarin Monitor INR 5. Hyperlipidemia/hypertension Continue home medications FEN Electrolytes: Monitor and replete when necessary Discharge Planning Discharge when fingerstick less than 250 Jose Gonzalez MD Aug 25, 2017 15:10
--- NOTE | 2017-08-25 15:11 | HHI.DS ---
Discharge Summary Admission Date Aug 20, 2017 at 17:14 Discharge Date: Aug 25, 2017 Admitting Diagnosis HHS (1) DM type 2 (diabetes mellitus, type 2) ICD Code: E11.9 - Type 2 diabetes mellitus Diagnosis: Principal Status: Chronic Procedures none Brief History - From Admission 47-year-old male with a past medical history of right MCA stroke with left- sided hemiplegia, cardiomyopathy with AICD, non-STEMI, hypertension, hyperlipidemia, CHF (last echo showed EF of 20-25%), and diabetes [facility] The patient states he called 911 himself because the [facility] "[facility] not do anything for him." He takes metformin daily. Is not on insulin. He reports a dry mouth and decreased appetite for the past several weeks. He denies fever/chills. Denies nausea/vomiting. Denies shortness of breath/chest pain. Labs significant for a blood glucose of 625. Creatinine 1.99, baseline 1.0. CBC/BMP: 08/21/17 0631 08/24/17 0653 Significant Findings Laboratory Tests Test 08/22/17 17:04 08/23/17 06:44 08/24/17 06:53 08/25/17 07:08 Random Glucose 317 MG/DL (74-106) 261 MG/DL (74-106) 285 MG/DL (74-106) Prothrombin Time 32.1 SEC (9.8-11.6) 29.9 SEC (9.8-11.6) 24.1 SEC (9.8-11.6) Blood Urea Nitrogen 24 MG/DL (7-18) 25 MG/DL (7-18) Calcium Level 8.4 MG/DL (8.5-10.1) 8.4 MG/DL (8.5-10.1) Estimat Glomerular Filtration Rate 80 ML/MIN (>89) 74 ML/MIN (>89) PE at Discharge GENERAL: Obese, male in no distress. SKIN: No rashes, ecchymoses or lesions. Cool and dry. CARDIOVASCULAR: Regular rate and rhythm without murmurs, gallops, or rubs. RESPIRATORY: Clear to auscultation. Breath sounds equal bilaterally. No wheezes , rales, or rhonchi. GASTROINTESTINAL: Abdomen soft, non-tender, nondistended. No guarding. MUSCULOSKELETAL: Extremities without clubbing, cyanosis, or edema. No joint tenderness, effusion, or edema noted. No calf tenderness. Negative Homans sign bilaterally. NEUROLOGICAL: Awake and alert. Cranial nerves II through XII intact. Slurred speech. Left upper and lower extremity paralysis. No significant change in PE from previous Hospital Course 47-year-old male with left sided hemiplegia from MCA stroke 2 years ago, CHF, cardiomyopathy, hypertension, hyperlipidemia and type 2 diabetes mellitus presents with hyperglycemia and LINDA. 1. HHS/Diabetes Mellitus No anion gap, beta hydroxybutyrate 0.25, blood glucose 625 Patient not on insulin, only takes metformin Status post 1 L bolus in the EDSSI A1c 11. Fingersticks improving but still significantly elevated increase Levemir to 40 units in the morning and 30 units at bedtime, continue preprandial NovoLog 5 units 3 times a day daily. Restart metformin. Diabetic education Diabetic education 2. LINDA. Resolve in BUN/creatinine 58/1.99 Discontinue IV hydration Avoid nephrotoxins. Follow-up BMP 3. Cardiomyopathy/CHF/AICD placement. Patient with 6 beat run of nonsustained V. tach Continue home medications increase Coreg. Also aggressive electrolyte replacement specially potassium and magnesium. Potassium 20 mg by mouth 1 today. Monitor on heading up machine operator closely for signs of volume overload 4. History of right MCA stroke Continue anticoagulation with warfarin Monitor INR 5. Hyperlipidemia/hypertension Continue home medications FEN Electrolytes: Monitor and replete when necessary Pt Condition on Discharge: Stable Discharge Disposition: Discharge to SNF Discharge Time: > 30 minutes Discharge Instructions DIET: Follow Instructions for: Diabetic Diet Speech Therapy-Diet Recommends: Regular Activities you can perform: Regular-No Restrictions Activities to Avoid: Driving Follow up Referrals: Endocrinology - 1 Week PCP Follow-up - 1 Week New Orders: PT/INR New Medications: Carvedilol (Coreg) 12.5 Mg Tab 25 MG PO BID for Prevent Heart Failure, #60 TAB Insulin Aspart Inj (Novolog Inj) 100 Unit/Ml Inj 1 UNITS SQ ACHS SLIDING SCALE for Blood Sugar Management, #120 INJECTION Fasting Sugar <200=No coverage Max Dose HS: 2U Max Dose @ 3am=0 U Bld. Sugar <70=No Insulin 150-199=1 U 200-249=3 U 250-299=5 U 300-349=7 U >349=9 U Insulin Aspart Inj (Novolog Inj) 1,000 Unit/10 Ml Vial 8 UNITS SQ TIDAC for Blood Sugar Management, #90 INJECTION Insulin Detemir Inj (Levemir Inj) 1,000 unit/ 10 ML Vial 30 UNITS SQ HS for Blood Sugar Management, #30 INJECTION Do not mix with any other Insulin. Insulin Detemir Inj (Levemir Inj) 1,000 unit/ 10 ML Vial 40 UNITS SQ DAILYAC for Blood Sugar Management, #30 INJECTION Do not mix with any other Insulin. Magnesium Oxide (Magnesium Oxide) 400 Mg Tab 400 MG PO Q12HR for Electrolyte Replacement, #60 TAB Potassium Chloride Microencaps (Potassium Chloride Microencaps) 20 Meq Tab 30 MEQ PO DAILY for Electrolyte Replacement, #30 TAB Warfarin (Coumadin) 4 Mg Tab 4 MG PO DAILY@1600 for Prevent Blood Clot, #30 TAB Changed Medications: Lorazepam (Ativan) 0.5 Mg Tab 0.5 MG PO BID PRN for anxiety, #6 TAB (Changed from: 20) Continued Medications: Acetaminophen (Mapap) 325 Mg Tab 650 MG PO Q4HR PRN for PAIN/DISCOMFORT/TEMP>101, TAB 0 Refills Bisacodyl Supp (Dulcolax Supp) 10 Mg Supp 10 MG RECTAL DAILY PRN for IF NO BM FROM MOM, #12 SUPP 0 Refills Bumetanide (Bumetanide) 1 Mg Tab 1 MG PO BID, #60 TAB 0 Refills Buspirone (Buspirone) 10 Mg Tab 10 MG PO DAILY for Anxiety, TAB 0 Refills Escitalopram (Lexapro) 10 Mg Tab 10 MG PO DAILY for Depression Control, #30 TAB 0 Refills Gabapentin (Gabapentin) 300 Mg Cap 300 MG PO TID for Pain Management, #90 CAP 0 Refills Lisinopril (Lisinopril) 20 Mg Tab 20 MG PO DAILY for Blood Pressure Management, #30 TAB Loperamide HCl (Sm Anti-Diarrheal) 1 Mg/5 Ml Liq 2 MG PO DIRECTED PRN for DIARRHEA Take 4 mg after 1st loose stool, then take 2 mg after each subsequent stool. Max 16 mg/day. Metformin (Metformin) 500 Mg Tab 500 MG PO BIDPC for NIDDM, #60 TAB 0 Refills With meals Multiple Vitamin (Multi Vitamin Daily) 1 Tab Tab Pravastatin (Pravastatin) 40 Mg Tab 40 MG PO HS for Cholesterol Management, #30 TAB 0 Refills Discontinued Medications: Fxhwvwvk-Fjoafppvn-Umwsxsglchq Liq (Hvmiysyl-Ebteyhosg-Uhgrbuqgyjv Liq) 200-200- 20 Mg/5 Ml Susp 30 ML PO Q4HR PRN for IN, ML 0 Refills Take between meals or as directed. Shake well. Do not exceed 120 mL/24 hrs. Carvedilol (Carvedilol) 12.5 Mg Tab 12.5 MG PO BID for HTN, #60 TAB 0 Refills Magnesium Hydroxide Liq (Milk of Magnesia Liq) 400 Mg/5 Ml Susp 30 ML PO Q4HR PRN for CONSTIPATION, #1 BOTTLE 0 Refills Potassium Chloride ER (Potassium Chloride ER) 20 Meq Tab 20 MEQ PO DAILY for Electrolyte Replacement, #30 TAB 0 Refills Warfarin (Warfarin) 5 Mg Tab 5 MG PO DAILY for Blood Clot Prevention, #30 TAB 0 Refills Jose Gonzalez MD Aug 25, 2017 15:11
[2017-08-25] MEDS ORDERED: WARFARIN SOD 5 MG TAB PO SCH (16:00)
== END 2017-08-25 15:26 | DRG 638 ==
LOC: NEPC 13:30 → NEDA 17:14 → N04B 18:30
PROVIDERS: ADMIT Internal Medicine; ATTEND Internal Medicine
DX: E11.00 Type 2 diabetes mellitus with hyperosmolarity without nonketotic hyperglycemic-hyperosmolar coma (NKHHC) (principal); Z68.43 Body mass index [BMI] 50.0-59.9, adult; I47.2 Ventricular tachycardia; N17.9 Acute kidney failure, unspecified; I42.9 Cardiomyopathy, unspecified; I50.9 Heart failure, unspecified; I69.354 Hemiplegia and hemiparesis following cerebral infarction affecting left non-dominant side; E11.42 Type 2 diabetes mellitus with diabetic polyneuropathy; I11.0 Hypertensive heart disease with heart failure; E66.9 Obesity, unspecified; G47.30 Sleep apnea, unspecified; E78.5 Hyperlipidemia, unspecified; Z79.84 Long term (current) use of oral hypoglycemic drugs; I25.2 Old myocardial infarction; Z79.01 Long term (current) use of anticoagulants; Z95.810 Presence of automatic (implantable) cardiac defibrillator
CPT/HCPCS: 76937; 80048; 80053; 81001; 82010; 82550; 82947; 82948; 83036; 83605; 83690; 83735; 84443; 85025; 85610; 85730; 96361; 96374; J1815; J7030; P9612

== ENCOUNTER 2018-01-28 11:01 | Emergency (ER) | payer MEDICAID ==
[~2018-01-28 11:01] MED LIST changes: -ALUMSUS2 PO; -BENZ100 PO; +CARV12.5 PO; -CARV12.52 PO; -CEFU1TAB20 PO; -COUM3TAB PO; +COUM4TAB PO; -FLEEENE PR; -FLUO20CA12 PO; -IPRASOL INH; +LEVEMIR SQ; +MAGN400T2 PO; -MILKSUS PO; +MULT1TAB46; +NOVOLOGP2 SQ; +NOVOLOGSS SQ; -POTA-163 PO; +POTA20TA5 PO; -PRED20 PO
[2018-01-28 11:11] VITALS: BP 150/70; PULSE 82; RESP 20; TEMP 98.6; O2SAT 98
--- NOTE | 2018-01-28 11:21 | PD ---
HPI Chief Complaint: ENT Complaint Time Seen by Provider: 11:14 Travel History International Travel<30 days: No Contact w/Intl Traveler<30days: No Traveled to known affect area: No History of Present Illness HPI 47 y/o male presents after he got upset that they made him take a shower right after he had breakfast and he got water in his nose and he feels like it got in his throat. He states it is making him nauseous and he does not want to throw up. He denies any other concurrent complaints at this time. He is a poor historian and history is limited. History was supplemented by nursing staff who talked with ambulance team. PFSH Past Medical History Arthritis: No Asthma: No Autoimmune Disease: No Blood Disorders: No Anxiety: No Depression: No Heart Rhythm Problems: Yes Cancer: No Cardiovascular Problems: Yes High Cholesterol: Yes Chest Pain: No Congestive Heart Failure: Yes COPD: No Cerebrovascular Accident: Yes (04/12/2015) Diabetes: Yes Diminished Hearing: No Endocrine: Yes GERD: No Glaucoma: No Genitourinary: No Headaches: No Hepatitis: No Hiatal Hernia: No Hypertension: Yes Immune Disorder: No Implanted Vascular Access Dvce: Yes Kidney Stones: No Musculoskeletal: No Neurologic: Yes Psychiatric: No Reproductive: No Respiratory: Yes Migraines: No Myocardial Infarction: No Pneumonia: Yes Radiation Therapy: No Renal Failure: No Seizures: No Sickle Cell Disease: No Sleep Apnea: Yes Thyroid Disease: No Ulcer: No Past Surgical History Abdominal Surgery: Yes AICD: Yes Appendectomy: No Arteriovenous Shunt: No Cardiac Surgery: Yes (pace maker) Cholecystectomy: No Ear Surgery: No Endocrine Surgery: No Eye Surgery: No Genitourinary Surgery: Yes (feeding tube) Gynecologic Surgery: No Insulin Pump: No Joint Replacement: No Oral Surgery: No Pacemaker: Yes Thoracic Surgery: Yes Other Surgery: Yes Social History Alcohol Use: No Tobacco Use: No Substance Use: No Allergies-Medications (Allergen,Severity, Reaction): Coded Allergies: *MDRO Multi-Drug Resistant Organism (Verified Adverse Reaction, Unknown, MRSA, 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 Levemir Inj (Insulin Detemir) 1,000 unit/ 10 ML Vial 30 Units SQ HS Do not mix with any other Insulin. Potassium Chloride Microencaps 20 Meq Tab 30 Meq PO DAILY Ativan (Lorazepam) 0.5 Mg Tab 0.5 Mg PO BID PRN Novolog Inj (Insulin Aspart) 100 Unit/Ml Inj 1 Units SQ ACHS SLIDING SCALE Fasting Sugar <200=No coverage Max Dose HS: 2U Max Dose @ 3am=0 U Bld. Sugar <70=No Insulin 150-199=1 U 200-249=3 U 250-299=5 U 300-349=7 U >349=9 U Magnesium Oxide 400 Mg Tab 400 Mg PO Q12HR Coreg (Carvedilol) 12.5 Mg Tab 25 Mg PO BID Coumadin (Warfarin) 4 Mg Tab 4 Mg PO DAILY@1600 Bumetanide 1 Mg Tab 1 Mg PO BID Lisinopril 20 Mg Tab 20 Mg PO DAILY Reported Multi Vitamin Daily (Multiple Vitamin) 1 Tab Tab Sm Anti-Diarrheal (Loperamide HCl) 1 Mg/5 Ml Liq 2 Mg PO DIRECTED PRN Take 4 mg after 1st loose stool, then take 2 mg after each subsequent stool. Max 16 mg/day. Dulcolax Supp (Bisacodyl) 10 Mg Supp 10 Mg RECTAL DAILY PRN Mapap (Acetaminophen) 325 Mg Tab 650 Mg PO Q4HR PRN Pravastatin 40 Mg Tab 40 Mg PO HS Metformin (Metformin HCl) 500 Mg Tab 500 Mg PO BIDPC With meals Gabapentin 300 Mg Cap 300 Mg PO TID Lexapro (Escitalopram Oxalate) 10 Mg Tab 10 Mg PO DAILY Buspirone (Buspirone HCl) 10 Mg Tab 10 Mg PO DAILY Review of Systems ROS Limitations: Poor Historian Except as stated in HPI: all other systems reviewed are Neg Physical Exam Exam Limitations: Poor Historian Narrative GENERAL: 47-year-old male in no apparent distress SKIN: Focused skin assessment warm/dry. HEAD: Atraumatic. Normocephalic. EYES: Pupils equal and round. No scleral icterus. No injection or drainage. ENT: No nasal bleeding or discharge. Mucous membranes pink and moist. Posterior oropharynx without exudate or erythema NECK: Trachea midline. No JVD. CARDIOVASCULAR: Regular rate and rhythm. No murmur appreciated. RESPIRATORY: No accessory muscle use. Clear to auscultation. Breath sounds equal bilaterally. GASTROINTESTINAL: Abdomen soft, non-tender, nondistended. MUSCULOSKELETAL: No obvious deformities. No clubbing. No cyanosis. Moves extremities NEUROLOGICAL: Awake. No obvious cranial nerve deficits. Motor grossly within normal limits. Slow clear speech. Data Data Last Documented VS Vital Signs Date Time Temp Pulse Resp B/P (MAP) Pulse Ox O2 Delivery O2 Flow Rate FiO2 01/28/18 11:11 98.6 82 20 150/70 (96) 98 Orders Orders Ondansetron Odt (Zofran Odt) (01/28/18 11:30) Chest, Single Ap (01/28/18 ) Ed Discharge Order (01/28/18 12:17) [facility] Medical Decision Making Medical Screen Exam Complete: Yes Emergency Medical Condition: Yes Medical Record Reviewed: Yes (pmh confirmed) Interpretation(s) cxr no acute Differential Diagnosis URI, aspiration, rhinorrhea Narrative Course Will dose with oral Zofran for nausea and check chest x-ray and reevaluate cxr no acute, no new concerns, will have follow with primary and return as needed Diagnosis Primary Impression: Nausea Patient Instructions: General Instructions Additional Instructions: return as needed, follow with primary this week Med/Other Pt SpecificInfo: No Change to Meds Disposition: 01 DISCHARGE HOME Condition: Stable Mallika Dailey MD January 28, 2018 11:21
[2018-01-28] MEDS ORDERED: ONDANSETRON ODT 4 MG TAB PO ONE (11:30)
--- NOTE | 2018-01-28 12:10 | RADRPT ---
EXAM DATE/TIME: 01/28/2018 11:48 [facility] COMPARISON: CHEST PA & LAT, March 06, 2017, 14:14. CHEST SINGLE AP, March 04, 2017, 14:54. INDICATIONS : Short of breath. MEDICAL HISTORY : Stroke. SURGICAL HISTORY : Pacemaker. ENCOUNTER: Initial ACUITY: 1 day PAIN SCORE: Non-responsive. LOCATION: Bilateral chest FINDINGS: A single view of the chest demonstrates the lungs to be symmetrically aerated without evidence of mas s, infiltrate or effusion. The heart size is enlarged but stable compared to the prior study. There is a pacemaker overlying the left chest. There is motion artifact on the image.. Osseous structures are intact. CONCLUSION: No definite acute infiltrates are demonstrated. Compensated cardiomegaly. Gennaro Etienne MD on January 28, 2018 at 12:07 Board Certified Radiologist. This report was verified electronically.
== END 2018-01-28 14:24 | disposition home or self-care (01) ==
LOC: NEPC 11:01 → NEDAMB 14:24
DX: R11.0 Nausea (principal); E11.9 Type 2 diabetes mellitus without complications; E78.00 Pure hypercholesterolemia, unspecified; I11.0 Hypertensive heart disease with heart failure; I50.9 Heart failure, unspecified; Z79.4 Long term (current) use of insulin
CPT/HCPCS: 71045; 99283